=== PATIENT | female | born 1955 | race Caucasian/White ===

== ENCOUNTER 2020-03-15 16:56 | Outpatient (CLI) | payer MEDICARE, SELFPAY ==
[2020-03-15 17:34] LABS: Basophils Absolute Auto 0.1 K/mm3 (0.0-0.1); Basophils Percent Auto 0.9 % (0.2-1.2); Eosinophils Absolute Auto 0.2 K/mm3 (0-0.3); Eosinophils Percent Auto 3.3 % (0-4.4); Hematocrit 33.2 % (37.0-47.0); Hemoglobin 11.2 g/dL (12.0-15.0); Immature Granulocyte Absolute 0.01 K/mm3 (0.00-0.031); Immature Granulocyte Percent A 0.2 % (0-0.5); Lymphocytes Absolute Auto 1.13 K/mm3 (0.9-3.2); Lymphocytes Percent Auto 20.8 % (18.3-44.2); Mean Corpuscular HGB Conc 33.7 g/dl (32-36); Mean Corpuscular Hemoglobin 30.8 pg (26-34); Mean Corpuscular Volume 91.2 fl (80-100); Mean Platelet Volume 10.2 fl (7.4-10.4); Monocytes Absolute Auto 0.5 K/mm3 (0.1-0.6); Monocytes Percent Auto 9.6 % (2.6-8.5); Neutrophils Absolute Auto 3.5 K/mm3 (1.3-6.7); Neutrophils Percent Auto 65.2 % (45.5-73.1); Platelet Count Result 409 k/mm3 (150-375); Red Blood Count 3.64 M/mm3 (4.2-5.4); Red Cell Distribution Width 12.8 % (11.5-14.5); White Blood Count 5.4 K/mm3 (4.5-10.0)
[2020-03-15 17:35] LABS: Alanine Aminotransferase 10 U/L (4-35); Albumin Level 4.1 g/dL (3.5-5.1); Alkaline Phosphatase 122 U/L (38-126); Anion Gap 14.1 mmol/L (7-16); Aspartate Amino Transferase 19 U/L (14-36); Bilirubin,Total 0.3 mg/dL (0.2-1.3); Blood Urea Nitrogen 16 mg/dL (7-17); Calcium 8.4 mg/dL (8.4-10.2); Carbon Dioxide 26 mmol/L (22-30); Chloride 92 mmol/L (98-107); Cholesterol 127 mg/dL (0-200); Estimated Glomerular Filt Rate 56; Glucose 95 mg/dL (65-105); HDL Direct 63 mg/dL; Hemoglobin A1C 5.6 % (<5.7); Potassium 4.1 mmol/L (3.4-5.0); Sodium 128 mmol/L (137-145); Triglycerides 77 mg/dL (<150)
[2020-03-15 17:46] LABS: LDL Cholesterol Direct 50 mg/dL
[2020-03-15 19:20] LABS: Free T4 Free Thyroxine 1.11 ng/mL (0.78-2.19)
== END 2020-03-15 16:57 | disposition home or self-care (01) ==
PROVIDERS: PCP Physician Assistant; Visit Provider Physician Assistant
DX: R73.03 Prediabetes (principal); E78.5 Hyperlipidemia, unspecified; E03.9 Hypothyroidism, unspecified; Z79.899 Other long term (current) drug therapy
CPT/HCPCS: 36415; 80048; 80061; 80076; 83036; 84439; 84443; 85025

== ENCOUNTER → 2020-04-09 13:48 | Outpatient (CLI) | payer MEDICARE, SELFPAY ==
--- NOTE | ~2020-04-09 | MM_ITS ---
EXAMINATION: MM screening [facility] w valeriano HISTORY: Screening TECHNIQUE: Craniocaudal and mediolateral oblique 3-D tomosynthesis images were obtained and synthetic 2-D images were generated. CAD analysis was submitted and interpreted. COMPARISON: Comparison to multiple prior studies sequentially, with oldest reviewed study dated 06/11. BREAST PARENCHYMAL COMPOSITION: There are scattered areas of fibroglandular density. FINDINGS: There is no evidence of suspicious mass, calcification, or architectural distortion to sugg est malignancy in either breast. There has been no suspicious interval change. IMPRESSION: 1. No mammographic evidence of malignancy. 2. Recommend routine screening mammography in one year. BI-RADS Category 1: Negative Reviewed, dictated and finalized at location A.
== END ==
PROVIDERS: PCP Physician Assistant; Visit Provider Physician Assistant
DX: Z12.31 Encounter for screening mammogram for malignant neoplasm of breast (principal)
CPT/HCPCS: 77063; 77067

== ENCOUNTER 2020-04-25 15:44 | Outpatient (CLI) | payer MEDICARE, SELFPAY ==
--- NOTE | ~2020-04-25 | XR_ITS ---
EXAMINATION: XR cervical spine 4-5V DATE: 04/25/2020 16:41 INDICATION: Cervical radiculopathy. Posterior neck pain. TECHNIQUE: 3 views of cervical spine were obtained. COMPARISON: Cervical spine radiographs 05/27/2016 FINDINGS: Bone alignment is normal. Vertebral body heights are normal. There is moderately decreased disc height at C5-C6 and mildly decreased disc height at C6-C7. There is multilevel facet joint osteo arthritis, severe on the left at C4-C5. There is mild central canal stenosis at C5-C6. No prevertebra l soft tissue swelling. IMPRESSION: 1. Moderate cervical spondylosis, stable from 05/27/2016. Reviewed, dictated and finalized at location A.
--- NOTE | ~2020-04-25 | XR_ITS ---
EXAMINATION: XR lumbar spine 2-3V DATE: 04/25/2020 16:41 INDICATION: Lumbar radiculopathy. TECHNIQUE: 3 views of lumbar spine were obtained. COMPARISON: Lumbar spine radiographs 05/27/2016 FINDINGS: There is 10 degrees levoscoliosis of thoracolumbar spine. There is kyphosis of upper lumbar spine. There is 3 mm retrolisthesis of L2 on L3 and L3 on L4. Vertebral body heights are normal. The re is moderately decreased disc height at L1-L2 and severely decreased disc height from L2-L3 through L4-L5. There is multilevel facet joint osteoarthritis, severe in lower lumbar spine. There are elect rode in left S3 neural foramen. Surgical clips in the right upper quadrant are likely from cholecyste ctomy. IMPRESSION: 1. Severe lumbar spondylosis. 2. Thoracolumbar levoscoliosis. Reviewed, dictated and finalized at location A.
[2020-04-25 16:30] LABS: Anion Gap 9 mmol/L (8-16); Blood Urea Nitrogen 10 mg/dL (7-17); Calcium 8.6 mg/dL (8.4-10.2); Carbon Dioxide 29 mmol/L (22-30); Chloride 89 mmol/L (98-107); Estimated Glomerular Filt Rate > 60; Glucose 87 mg/dL (65-105); Potassium 3.9 mmol/L (3.4-5.0); Sodium 127 mmol/L (137-145)
== END 2020-04-25 15:45 | disposition home or self-care (01) ==
PROVIDERS: PCP Physician Assistant
DX: E87.1 Hypo-osmolality and hyponatremia (principal); M47.22 Other spondylosis with radiculopathy, cervical region; M47.26 Other spondylosis with radiculopathy, lumbar region; G89.4 Chronic pain syndrome; M41.84 Other forms of scoliosis, thoracic region; Z79.891 Long term (current) use of opiate analgesic; Z51.81 Encounter for therapeutic drug level monitoring; Z13.89 Encounter for screening for other disorder
CPT/HCPCS: 36415; 72050; 72100; 80048

== ENCOUNTER 2020-05-29 14:09 | Outpatient (CLI) | payer MEDICARE, SELFPAY ==
--- NOTE | ~2020-05-29 | CT_ITS ---
EXAMINATION: CT chest w con DATE: 05/29/2020 15:02 INDICATION: Hypoosmolality and hyponatremia TECHNIQUE: Transaxial computed tomographic images of the chest were obtained after the administration of 75 cc of Omnipaque 350 intravenous contrast. The dose-length product (DLP) was 141.29 mGy-cm. Ite rative reconstruction was used. COMPARISON: 04/14/2011 FINDINGS: There is mild atelectasis. The lungs are free of focal airspace opacities. There is no pleu ral effusion or pneumothorax. No pathologically enlarged thoracic lymph nodes are identified. The hea rt size is normal. There is a 7 mm cyst of the left hepatic lobe. The gallbladder is surgically absen t. There is mild enlargement of the common bile duct and central intrahepatic ducts which is likely d ue to post cholecystectomy state. There is mild thoracic spondylosis. IMPRESSION: 1. No CT correlate for the patient's symptoms. Reviewed, dictated and finalized at location A.
[2020-05-29 14:57] LABS: Estimated Glomerular Filt Rate 45
== END 2020-05-29 14:10 | disposition home or self-care (01) ==
PROVIDERS: PCP Physician Assistant; Visit Provider Physician Assistant
DX: E87.1 Hypo-osmolality and hyponatremia (principal)
CPT/HCPCS: 71260; Q9967

== ENCOUNTER 2021-03-22 15:02 | Outpatient (CLI) | payer MEDICARE, SELFPAY ==
[2021-03-22 16:01] LABS: Basophils Absolute Auto 0.1 K/mm3 (0.0-0.1); Basophils Percent Auto 1.3 % (0.2-1.2); Eosinophils Absolute Auto 0.2 K/mm3 (0-0.3); Eosinophils Percent Auto 3.4 % (0-4.4); Hematocrit 32.8 % (37.0-47.0); Hemoglobin 10.9 g/dL (12.0-15.0); Immature Granulocyte Absolute 0.01 K/mm3 (0.00-0.031); Immature Granulocyte Percent A 0.2 % (0-0.5); Lymphocytes Absolute Auto 0.91 K/mm3 (0.9-3.2); Lymphocytes Percent Auto 14.2 % (18.3-44.2); Mean Corpuscular HGB Conc 33.2 g/dl (32-36); Mean Corpuscular Hemoglobin 29.5 pg (26-34); Mean Corpuscular Volume 88.9 fl (80-100); Mean Platelet Volume 10.2 fl (7.4-10.4); Monocytes Absolute Auto 0.5 K/mm3 (0.1-0.6); Monocytes Percent Auto 7.7 % (2.6-8.5); Neutrophils Absolute Auto 4.7 K/mm3 (1.3-6.7); Neutrophils Percent Auto 73.2 % (45.5-73.1); Platelet Count Result 345 k/mm3 (150-375); Red Blood Count 3.69 M/mm3 (4.2-5.4); Red Cell Distribution Width 13.7 % (11.5-14.5); White Blood Count 6.4 K/mm3 (4.5-10.0)
[2021-03-22 16:10] LABS: Alanine Aminotransferase 9 U/L (4-35); Albumin Level 4.2 g/dL (3.5-5.1); Alkaline Phosphatase 87 U/L (38-126); Anion Gap 9 mmol/L (8-16); Aspartate Amino Transferase 20 U/L (14-36); Bilirubin,Total 0.5 mg/dL (0.2-1.3); Blood Urea Nitrogen 18 mg/dL (7-17); Calcium 9.3 mg/dL (8.4-10.2); Carbon Dioxide 27 mmol/L (22-30); Chloride 91 mmol/L (98-107); Cholesterol 130 mg/dL (0-200); Estimated Glomerular Filt Rate > 60; Glucose 97 mg/dL (65-110); HDL Direct 60 mg/dL; Potassium 4.1 mmol/L (3.4-5.0); Sodium 127 mmol/L (137-145); Triglycerides 90 mg/dL (<150)
[2021-03-22 16:33] LABS: LDL Cholesterol Direct 42 mg/dL
[2021-03-22 16:45] LABS: Free T4 Free Thyroxine 1.16 ng/mL (0.78-2.19)
[2021-03-22 17:59] LABS: Hemoglobin A1C 5.8 % (<5.7)
== END 2021-03-22 15:03 | disposition home or self-care (01) ==
LOC: ANHLAB 15:09
PROVIDERS: PCP Physician Assistant; Visit Provider Physician Assistant
DX: E78.5 Hyperlipidemia, unspecified (principal); E03.9 Hypothyroidism, unspecified; R73.03 Prediabetes; Z51.81 Encounter for therapeutic drug level monitoring; Z79.899 Other long term (current) drug therapy
CPT/HCPCS: 36415; 80048; 80061; 80076; 83036; 84439; 84443; 85025; 87086; 87088

== ENCOUNTER 2021-05-31 16:21 | Outpatient (CLI) | payer MEDICARE, SELFPAY ==
--- NOTE | ~2021-05-31 | XR_ITS ---
EXAMINATION:XR cervical spine 4-5V DATE: 05/31/2021 17:08 INDICATION: Neck pain TECHNIQUE: AP, lateral, lateral swimmers and odontoid views of the cervical spine are provided. COMPARISON: 04/25/2020 FINDINGS: Alignment is normal. The odontoid is intact. No fracture is identified. There is unchanged moderate loss of intervertebral disc space height at C5-6 and mild loss of intervertebral disc space height at C6-7. Small degenerative osteophytes project from the anterior endplates of multiple verteb ral bodies. There is multilevel facet and uncovertebral joint osteoarthritis, severe in the lower cer vical spine. Prevertebral soft tissues are normal. IMPRESSION: 1. Moderate cervical spondylosis without acute findings or significant interval change. Reviewed, dictated and finalized at location A.
--- NOTE | ~2021-05-31 | XR_ITS ---
EXAMINATION: XR lumbar spine 2-3V DATE: 05/31/2021 17:08 INDICATION: Low back pain TECHNIQUE: Anteroposterior and lateral views of the lumbar spine, and cone-down lateral view of the l umbosacral junction were obtained. COMPARISON: 04/25/2020 FINDINGS: There are 10 degrees of unchanged thoracolumbar levoscoliosis. Kyphosis of the upper lumbar spine is again noted. There are 3 mm of stable retrolisthesis of L2 on L3 and L3 on L4. The vertebra l body heights are maintained. There is severe loss of intervertebral disc space height at L2-3, L3-4 , and L4-5. Moderate loss of intervertebral disc space height is present at L1-2. There is no fractur e. There is severe facet osteoarthritis of the lower lumbar spine. A neurostimulator device is implan zenaida in the posterior subcutaneous tissues of the left buttock with lead entering the pelvis through t he left S3 neural foramen. A large volume of colonic stool is present. IMPRESSION: 1. Severe lumbar spondylosis without acute findings or significant interval change. Reviewed, dictated and finalized at location A. IMPRESSION: 1. Severe lumbar spondylosis without acute findings or significant interval chilango nge.
== END 2021-05-31 16:22 | disposition home or self-care (01) ==
LOC: ANHIMG 16:25
PROVIDERS: PCP Physician Assistant; Visit Provider Pain Medicine Interventional Pain Medicine
DX: G89.4 Chronic pain syndrome (principal); M47.812 Spondylosis without myelopathy or radiculopathy, cervical region; M48.02 Spinal stenosis, cervical region; M47.816 Spondylosis without myelopathy or radiculopathy, lumbar region; M48.061 Spinal stenosis, lumbar region without neurogenic claudication
CPT/HCPCS: 72050; 72100

== ENCOUNTER → 2021-06-06 15:14 | Outpatient (CLI) | payer MEDICARE, SELFPAY ==
--- NOTE | ~2021-06-06 | MM_ITS ---
EXAMINATION: MM screening [facility] w valeriano HISTORY: Screening mammogram TECHNIQUE: Craniocaudal and mediolateral oblique 3-D tomosynthesis images were obtained and synthetic 2-D images were generated. CAD analysis was submitted and interpreted. COMPARISON: 04/09/2020, 12/26/2015 bilateral screening mammogram examinations BREAST PARENCHYMAL COMPOSITION: There are scattered areas of fibroglandular density... FINDINGS: Stable mild fibroglandular asymmetry. There is no evidence of suspicious mass, calcificatio n, or architectural distortion to suggest malignancy in either breast. There has been no suspicious i nterval change. IMPRESSION: 1. No mammographic evidence of malignancy. 2. Recommend routine screening mammography in one year. BI-RADS Category 2: Benign finding(s). Reviewed, dictated and finalized at location A.
== END ==
PROVIDERS: PCP Physician Assistant; Visit Provider Physician Assistant
DX: Z12.31 Encounter for screening mammogram for malignant neoplasm of breast (principal)
CPT/HCPCS: 77063; 77067

== ENCOUNTER 2021-10-11 16:07 | Outpatient (CLI) | payer MEDICARE, SELFPAY ==
[2021-10-11 17:24] LABS: Basophils Absolute Auto 0.1 K/mm3 (0.0-0.1); Basophils Percent Auto 0.9 % (0.2-1.2); Eosinophils Absolute Auto 0.2 K/mm3 (0-0.3); Eosinophils Percent Auto 2.4 % (0-4.4); Hematocrit 34.9 % (37.0-47.0); Hemoglobin 11.4 g/dL (12.0-15.0); Immature Granulocyte Absolute 0.02 K/mm3 (0.00-0.031); Immature Granulocyte Percent A 0.3 % (0-0.5); Lymphocytes Absolute Auto 1.65 K/mm3 (0.9-3.2); Lymphocytes Percent Auto 20.8 % (18.3-44.2); Mean Corpuscular HGB Conc 32.7 g/dl (32-36); Mean Corpuscular Hemoglobin 30.9 pg (26-34); Mean Corpuscular Volume 94.6 fl (80-100); Mean Platelet Volume 10.5 fl (7.4-10.4); Monocytes Absolute Auto 0.5 K/mm3 (0.1-0.6); Monocytes Percent Auto 6.6 % (2.6-8.5); Neutrophils Absolute Auto 5.5 K/mm3 (1.3-6.7); Platelet Count Result 358 k/mm3 (150-375); Red Blood Count 3.69 M/mm3 (4.2-5.4); Red Cell Distribution Width 13.1 % (11.5-14.5); White Blood Count 7.9 K/mm3 (4.5-10.0)
[2021-10-11 17:36] LABS: Anion Gap 9 mmol/L (8-16); Blood Urea Nitrogen 27 mg/dL (7-17); Carbon Dioxide 29 mmol/L (22-30); Chloride 93 mmol/L (98-107); Estimated Glomerular Filt Rate 50; Glucose 89 mg/dL (65-110); Potassium 3.9 mmol/L (3.4-5.0); Sodium 131 mmol/L (137-145)
[2021-10-11 18:09] LABS: Iron 47 ug/dL (37-170)
[2021-10-11 18:18] LABS: Percent Iron Saturation 13 % (20-50)
== END 2021-10-11 16:08 | disposition home or self-care (01) ==
LOC: ANHLAB 16:21
PROVIDERS: PCP Physician Assistant; Visit Provider Physician Assistant
DX: E87.1 Hypo-osmolality and hyponatremia (principal); L60.8 Other nail disorders; Z79.899 Other long term (current) drug therapy; R73.03 Prediabetes; E78.5 Hyperlipidemia, unspecified; E03.9 Hypothyroidism, unspecified
CPT/HCPCS: 36415; 80048; 82607; 83540; 83550; 85025

== ENCOUNTER 2021-12-18 14:52 | Outpatient (CLI) | payer MEDICARE, SELFPAY ==
[2021-12-18 15:30] LABS: Alanine Aminotransferase 10 U/L (6-35); Alkaline Phosphatase 76 U/L (38-126); Anion Gap 7 mmol/L (8-16); Aspartate Amino Transferase 20 U/L (14-36); Bilirubin,Total 0.4 mg/dL (0.2-1.3); Blood Urea Nitrogen 16 mg/dL (7-17); Calcium 8.9 mg/dL (8.4-10.2); Carbon Dioxide 28 mmol/L (22-30); Chloride 94 mmol/L (98-107); Cholesterol 116 mg/dL (0-200); Estimated Glomerular Filt Rate 55; Glucose 104 mg/dL (65-110); HDL Direct 58 mg/dL; Potassium 3.9 mmol/L (3.4-5.0); Sodium 129 mmol/L (137-145); Triglycerides 73 mg/dL (<150)
[2021-12-18 15:41] LABS: LDL Cholesterol Direct 40 mg/dL
[2021-12-18 16:35] LABS: Free T4 Free Thyroxine 1.37 ng/mL (0.78-2.19)
== END 2021-12-18 14:53 | disposition home or self-care (01) ==
PROVIDERS: PCP Physician Assistant; Referring Provider Psychiatry & Neurology Psychiatry; Visit Provider Physician Assistant
DX: E87.1 Hypo-osmolality and hyponatremia (principal); R73.03 Prediabetes; E03.9 Hypothyroidism, unspecified; E78.5 Hyperlipidemia, unspecified; Z79.899 Other long term (current) drug therapy
CPT/HCPCS: 36415; 80048; 80061; 80076; 84439; 84443

== ENCOUNTER 2022-05-17 16:25 | Emergency (ER) | payer MEDICARE, SELFPAY ==
[2022-05-17 16:34] VITALS: BP 129/75; PULSE 73; RESP 16; TEMP 36.4; O2SAT 98
[2022-05-17 16:36] VITALS: BP 129/75; PULSE 73; RESP 16; TEMP 36.4; O2SAT 98
--- NOTE | 2022-05-17 16:47 | ED.DENTAL ---
HPI - Dental/Oral General Chief complaint: Upper Respiratory Infection Stated complaint: left side facial swelling Time Seen by Provider: 05/17/22 16:47 Source: patient and RN notes reviewed Mode of arrival: ambulatory Limitations: no limitations History of Present Illness HPI Narrative: 66 y/o female presented for c/o left facial swelling since yesterday. Pain from left lower eye to left ear and jaw. Also endorses runny nose, headache, and cough. Patient states she thinks it is sinuses. Denies shortness of breath, wheezing, n/v/d/f/c. Patient reports poor dentition but denies gum pain/swelling. Related Data Home Medications Medication Instructions Recorded Confirmed bupropion HCl 200 mg tablet,12 hr 200 mg PO DAILY 03/22/21 05/17/22 sustained-release buspirone 15 mg tablet 15 mg PO TID 03/22/21 05/17/22 cyclobenzaprine 10 mg tablet 10 mg PO TID 03/22/21 05/17/22 duloxetine 60 mg capsule,delayed 60 mg PO DAILY 03/22/21 05/17/22 release hydrocodone 10 mg-acetaminophen 1 tablet PO Q8H 03/22/21 05/17/22 325 mg tablet levothyroxine 75 mcg tablet 75 mcg PO DAILY 03/22/21 05/17/22 losartan 100 0.5 tablet PO DAILY 03/22/21 05/17/22 mg-hydrochlorothiazide 25 mg tablet meloxicam 15 mg tablet 30 mg PO DAILY 03/22/21 05/17/22 metformin 500 mg tablet 500 mg PO BID 03/22/21 05/17/22 metoprolol succinate 50 mg 25 mg PO DAILY 03/22/21 05/17/22 tablet,extended release 24 hr ondansetron HCl 8 mg tablet 8 mg PO Q8-12H PRN Nausea 03/22/21 05/17/22 pantoprazole 40 mg tablet,delayed 40 mg PO BID 03/22/21 05/17/22 release quetiapine 100 mg tablet 100 mg PO HS 03/22/21 05/17/22 rosuvastatin 10 mg tablet 10 mg PO DAILY 03/22/21 05/17/22 trazodone 50 mg tablet 200 mg PO HS 03/22/21 05/17/22 cariprazine 4.5 mg capsule 4.5 mg PO DAILY 01/22/22 05/17/22 (Vraylar) Allergies Allergy/AdvReac Type Severity Reaction Status Date / Time adhesive Allergy Severe Blister Verified 05/17/22 16:31 bacitracin Allergy Severe Blister Verified 05/17/22 16:31 lisinopril Allergy Severe FACIAL Verified 05/17/22 16:31 SWELLING milk Allergy Severe Diarrhea Verified 05/17/22 16:31 neomycin Allergy Severe Blister Verified 05/17/22 16:31 polymyxin B Allergy Severe Back Pain Verified 05/17/22 16:31 gramicidin D Allergy Mild Unknown Verified 05/17/22 16:31 doxycycline Allergy Unknown Unknown Verified 05/17/22 16:57 adhesive tape AdvReac Intermediate RASH Verified 05/17/22 16:31 Review of Systems Review of Systems: CONSTITUTIONAL: Denies malaise, chills, sweats, fever EYES: Denies visual changes, redness, or discharge ENT: Reports rhinorrhea, congestion, sinus pain, otalgia CARDIOVASCULAR: Denies chest pain, palpitations, edema RESPIRATORY: Reports cough, post nasal drainage. Denies dyspnea GASTROINTESTINAL: Denies abdominal pain, nausea, vomiting, diarrhea SKIN: Denies rash or wounds MUSCULOSKELETAL: Denies myalgia PMFSH Past Medical History Medical History Anxiety Depression High cholesterol Hx of fpc use of blood thinners Hypertension Migraines Pneumonia Screening mammogram, encounter for Stomach ulcer Surgical History Surgical History History of bladder surgery 1998 interstim implant 1999 reposition of interstim implant History of dilation and curettage 05/09/85 dysfunctional uterine bleeding X3 History of hysterectomy (~1994) hysterectomy w/BSO and suspension History of orthopedic surgery 2012 lt leg injury History of parathyroidectomy 2010 benign tumor History of plastic surgery 2006 lt leg Family History Family History Mother Family history of migraine headaches Hypertension Family history of malignant neoplasm of kidney Family history of heart disease in male family member before age 55 Osteoporosis Grandparent Cerebrovascular acciden
== END 2022-05-17 17:08 | disposition home or self-care (01) ==
PROVIDERS: Emergency Provider Nurse Practitioner Family; PCP Physician Assistant
DX: R22.0 Localized swelling, mass and lump, head (principal); Z87.891 Personal history of nicotine dependence; E78.00 Pure hypercholesterolemia, unspecified; I10 Essential (primary) hypertension; F41.9 Anxiety disorder, unspecified; F32.A Depression, unspecified; Z90.89 Acquired absence of other organs
CPT/HCPCS: 99213; G0463

== ENCOUNTER 2022-08-10 15:55 | Emergency (ER) | payer MEDICARE, SELFPAY ==
[2022-08-10 16:28] VITALS: BP 135/77; PULSE 80; RESP 16; TEMP 36.6; O2SAT 96
--- NOTE | 2022-08-10 16:39 | ED.URI ---
HPI - URI/Sore Throat General Chief Complaint: Upper Respiratory Infection Stated Complaint: Sore Throat/Headache/Cough Time Seen by Provider: 08/10/22 16:39 Source: patient, RN notes reviewed and old records reviewed Mode of arrival: ambulatory Limitations: no limitations History of Present Illness HPI Narrative: 66-year-old female presents to the [facility] with complaints of sore throat, headache and cough for 2 days. Denies fevers. Denies chest pain or pain. Related Data Home Medications Medication Instructions Recorded Confirmed bupropion HCl 200 mg tablet,12 hr 200 mg PO DAILY 03/22/21 08/10/22 sustained-release buspirone 15 mg tablet 15 mg PO TID 03/22/21 08/10/22 cyclobenzaprine 10 mg tablet 10 mg PO TID 03/22/21 08/10/22 duloxetine 60 mg capsule,delayed 60 mg PO DAILY 03/22/21 08/10/22 release hydrocodone 10 mg-acetaminophen 1 tablet PO Q8H 03/22/21 08/10/22 325 mg tablet levothyroxine 75 mcg tablet 75 mcg PO DAILY 03/22/21 08/10/22 losartan 100 0.5 tablet PO DAILY 03/22/21 08/10/22 mg-hydrochlorothiazide 25 mg tablet meloxicam 15 mg tablet 30 mg PO DAILY 03/22/21 08/10/22 metformin 500 mg tablet 500 mg PO BID 03/22/21 08/10/22 metoprolol succinate 50 mg 25 mg PO DAILY 03/22/21 08/10/22 tablet,extended release 24 hr ondansetron HCl 8 mg tablet 8 mg PO Q8-12H PRN Nausea 03/22/21 08/10/22 pantoprazole 40 mg tablet,delayed 40 mg PO BID 03/22/21 08/10/22 release quetiapine 100 mg tablet 100 mg PO HS 03/22/21 08/10/22 rosuvastatin 10 mg tablet 10 mg PO DAILY 03/22/21 08/10/22 trazodone 50 mg tablet 200 mg PO HS 03/22/21 08/10/22 cariprazine 4.5 mg capsule 4.5 mg PO DAILY 01/22/22 08/10/22 (Chris) Allergies Allergy/AdvReac Type Severity Reaction Status Date / Time adhesive Allergy Severe Blister Verified 08/10/22 16:37 bacitracin Allergy Severe Blister Verified 08/10/22 16:37 lisinopril Allergy Severe FACIAL Verified 08/10/22 16:37 SWELLING milk Allergy Severe Diarrhea Verified 08/10/22 16:37 neomycin Allergy Severe Blister Verified 08/10/22 16:37 polymyxin B Allergy Severe Back Pain Verified 08/10/22 16:37 gramicidin D Allergy Mild Unknown Verified 08/10/22 16:37 doxycycline Allergy Unknown Unknown Verified 08/10/22 16:37 adhesive tape AdvReac Intermediate RASH Verified 08/10/22 16:37 Review of Systems Review of Systems: All systems reviewed & are unremarkable except as noted in HPI and below Constitutional: Constitutional: Reports as per HPI Eyes: Eyes: Reports no additional eye complaints ENT: Reports as per HPI and Reports sore throat Cardiovascular: Cardiovascular: Reports no additional cardiovascular complaints, Denies chest pain and Denies dyspnea Respiratory: Respiratory: Reports as per HPI, Denies chest congestion, Reports cough and Denies dyspnea Gastrointestinal: Gastrointestinal: Reports no additional gastrointestinal complaints, Denies abdominal pain, Denies nausea and Denies vomiting Musculoskeletal: Musculoskeletal: Reports no additional musculoskeletal complaints Integumentary/Breasts: Skin/Breast: Reports system reviewed and no additional complaints, except as docu Neurologic: Reports system reviewed and no additional complaints, except as documented Psychiatric: Psychiatric: Reports no additional psychiatric complaints Allergic/Immunologic: Allergic/Immunologic: Reports no additional allergic/immunologic complaints PMF Past Medical History Medical History Anxiety Depression High cholesterol Hx of penitentiary use of blood thinners Hypertension Migraines Pneumonia Screening mammogram, encounter for Stomach ulcer Surgical History Surgical History History of bladder surgery 1998 interstim implant 1999 reposition of interstim implant History of dilation and curettage 05/09/85 dysfunctional uterine bleeding X3 History of hysterectomy (~1994)
== END 2022-08-10 17:05 | disposition home or self-care (01) ==
PROVIDERS: Emergency Provider Nurse Practitioner; PCP Physician Assistant
DX: J40 Bronchitis, not specified as acute or chronic (principal); Z87.891 Personal history of nicotine dependence; F12.90 Cannabis use, unspecified, uncomplicated; E78.00 Pure hypercholesterolemia, unspecified; I10 Essential (primary) hypertension; F41.9 Anxiety disorder, unspecified; F32.A Depression, unspecified
CPT/HCPCS: 99213; G0463

== ENCOUNTER 2022-10-29 07:35 | Outpatient (CLI) | payer MEDICARE, SELFPAY ==
--- NOTE | ~2022-10-29 | XR_ITS ---
Thoracic spine: Clinical Indication: Radiculopathy AP and lateral views were performed. No fracture is seen. There is normal alignment of the vertebrae. The intervertebral disc spaces appe ar normal. Paravertebral soft tissues appear normal. Impression: No significant abnormalities noted. Reviewed, dictated and finalized at [facility]. Impression: No significant abnormalities noted.
--- NOTE | ~2022-10-29 | XR_ITS ---
Lumbosacral Spine: AP and lateral views Clinical History: Radiculopathy Findings: The normal lordotic curve is maintained. Possible minimal anterior wedging deformity of L2. . There is severe degenerative disc narrowing at L2-L3. There is moderate degenerative disc narrowing at the remaining lumbar levels. There is facet arthropathy at L4-L5 and L5-S1. Stimulator device pre sent. The sacroiliac joints are normally outlined. Impression: Possible minimal anterior wedging deformity of L2. Moderate to advanced degenerative spondylosis, as noted above. Reviewed, dictated and finalized at location M. Impression: Possible minimal anterior wedging deformity of L2. Moderate to advanced degenerative spondylosis, as noted above.
--- NOTE | ~2022-10-29 | XR_ITS ---
Cervical Spine: AP, lateral, open-mouth views Clinical History: Pain Findings: The normal lordotic curve is maintained. The vertebral bodies and posterior elements appea r intact. There is moderate to advanced degenerative disc narrowing at C5-C6 and C6-C7. Remaining dis c spaces are preserved. There is facet arthropathy, worse on the left side, most notably at C3-C4, C4 -C5, and C5-C6. Pre-vertebral soft tissues are unremarkable. Impression: Degenerative spondylosis, mild to moderate overall, as detailed above. Reviewed, dictated and finalized at location M. Impression: Degenerative spondylosis, mild to moderate overall, as detailed above.
[2022-10-29 09:16] LABS: Appearance Urine Clear (Clear); Bilirubin Urine Negative (Negative); Blood Urine Negative (Negative); Color Urine Yellow (Yellow); Glucose Urine UA Negative (Negative); Ketones Urine Negative (Negative); Leukocyte Esterase Ur Negative LEU/UL (NEGATIVE); Nitrate Urine Negative (Negative); Protein Urine Negative (Negative); Specific Grav Ur 1.006 (1.001-1.035); Urobilinogen Urine 0.2 mg/dL (<2.0); pH Urine 7.5 (5.0-9.0)
[2022-10-29 09:25] LABS: Basophils Absolute Auto 0.1 K/mm3 (0.0-0.1); Basophils Percent Auto 0.8 % (0.2-1.2); Eosinophils Absolute Auto 0.2 K/mm3 (0-0.3); Eosinophils Percent Auto 2.6 % (0-4.4); Hematocrit 32.1 % (37.0-47.0); Hemoglobin 10.5 g/dL (12.0-15.0); Immature Granulocyte Absolute 0.02 K/mm3 (0.00-0.031); Immature Granulocyte Percent A 0.3 % (0-0.5); Lymphocytes Absolute Auto 1.15 K/mm3 (0.9-3.2); Lymphocytes Percent Auto 18.9 % (18.3-44.2); Mean Corpuscular HGB Conc 32.7 g/dl (32-36); Mean Corpuscular Volume 88.7 fl (80-100); Mean Platelet Volume 9.9 fl (7.4-10.4); Monocytes Absolute Auto 0.6 K/mm3 (0.1-0.6); Monocytes Percent Auto 9.5 % (2.6-8.5); Neutrophils Absolute Auto 4.1 K/mm3 (1.3-6.7); Neutrophils Percent Auto 67.9 % (45.5-73.1); Platelet Count Result 328 k/mm3 (150-375); Red Blood Count 3.62 M/mm3 (4.2-5.4); Red Cell Distribution Width 14.6 % (11.5-14.5); White Blood Count 6.1 K/mm3 (4.5-10.0)
[2022-10-29 09:27] LABS: Add Urine Microscopic? NO
[2022-10-29 09:35] LABS: Alanine Aminotransferase 18 U/L (6-35); Albumin Level 4.3 g/dL (3.5-5.1); Alkaline Phosphatase 89 U/L (38-126); Anion Gap 5 mmol/L (8-16); Aspartate Amino Transferase 21 U/L (14-36); Bilirubin,Total 0.5 mg/dL (0.2-1.3); Blood Urea Nitrogen 19 mg/dL (7-17); Calcium 9.1 mg/dL (8.4-10.2); Carbon Dioxide 32 mmol/L (22-30); Chloride 96 mmol/L (98-107); Cholesterol 120 mg/dL (0-200); Estimated Glomerular Filt Rate 55; Glucose 86 mg/dL (65-110); HDL Direct 57 mg/dL; Potassium 4.3 mmol/L (3.4-5.0); Sodium 133 mmol/L (137-145); Triglycerides 132 mg/dL (<150)
[2022-10-29 09:57] LABS: LDL Cholesterol Direct 43 mg/dL
[2022-10-29 10:15] LABS: Iron 50 ug/dL (37-170)
[2022-10-29 10:24] LABS: Percent Iron Saturation 11 % (20-50)
[2022-10-29 10:28] LABS: Hemoglobin A1C 5.9 % (<5.7)
[2022-10-29 10:31] LABS: Free T4 Free Thyroxine 1.27 ng/mL (0.78-2.19)
[2022-10-29 10:50] LABS: Ferritin 8.02 ng/mL (11.1-264)
== END 2022-10-29 07:36 | disposition home or self-care (01) ==
PROVIDERS: PCP Physician Assistant; Referring Provider Physician Assistant; Visit Provider Pain Medicine Interventional Pain Medicine
DX: E03.9 Hypothyroidism, unspecified (principal); R73.03 Prediabetes; E78.5 Hyperlipidemia, unspecified; D64.9 Anemia, unspecified; Z79.899 Other long term (current) drug therapy; E87.1 Hypo-osmolality and hyponatremia; M47.896 Other spondylosis, lumbar region; M47.892 Other spondylosis, cervical region
CPT/HCPCS: 36415; 72050; 72072; 72100; 80048; 80061; 80076; 81003; 82728; 83036; 83540; 83550; 84439; 84443; 85025

== ENCOUNTER → 2023-04-07 14:04 | Outpatient (CLI) | payer MEDICARE, SELFPAY ==
--- NOTE | ~2023-04-07 | MM_ITS ---
EXAMINATION: MM screening [facility] w [facility]er[facility] HISTORY: Screening mammogram TECHNIQUE: Craniocaudal and mediolateral oblique 3-D tomosynthesis images were obtained and synthetic 2-D images were generated. CAD analysis was submitted and interpreted. COMPARISON: 06/06/2021, 04/09/2020, 12/26/2015 BREAST PARENCHYMAL COMPOSITION: The breasts are almost entirely fatty. FINDINGS: No suspicious mass, calcification, or architectural distortion are identified in either mattie ast to suggest malignancy. There has been no suspicious interval change. IMPRESSION: 1. No mammographic evidence of malignancy. 2. Recommend routine screening mammography in one year. BI-RADS Category 1: Negative Reviewed, dictated and finalized at location A.
== END ==
PROVIDERS: PCP Physician Assistant; Visit Provider Obstetrics & Gynecology
DX: Z12.31 Encounter for screening mammogram for malignant neoplasm of breast (principal)
CPT/HCPCS: 77063; 77067

== ENCOUNTER 2023-05-28 14:59 | Outpatient (CLI) | payer MEDICARE, SELFPAY ==
[2023-05-28 16:36] LABS: Basophils Absolute Auto 0.1 K/mm3 (0.0-0.1); Basophils Percent Auto 0.8 % (0.2-1.2); Eosinophils Absolute Auto 0.1 K/mm3 (0-0.3); Hematocrit 32.7 % (37.0-47.0); Hemoglobin 10.2 g/dL (12.0-15.0); Immature Granulocyte Absolute 0.02 K/mm3 (0.00-0.031); Immature Granulocyte Percent A 0.2 % (0-0.5); Lymphocytes Absolute Auto 0.98 K/mm3 (0.9-3.2); Lymphocytes Percent Auto 11.8 % (18.3-44.2); Mean Corpuscular HGB Conc 31.2 g/dl (32-36); Mean Corpuscular Hemoglobin 27.9 pg (26-34); Mean Corpuscular Volume 89.6 fl (80-100); Mean Platelet Volume 10.5 fl (7.4-10.4); Monocytes Absolute Auto 0.5 K/mm3 (0.1-0.6); Neutrophils Absolute Auto 6.7 K/mm3 (1.3-6.7); Neutrophils Percent Auto 80.2 % (45.5-73.1); Platelet Count Result 397 k/mm3 (150-375); Red Blood Count 3.65 M/mm3 (4.2-5.4); White Blood Count 8.3 K/mm3 (4.5-10.0)
[2023-05-28 17:39] LABS: Alanine Aminotransferase 15 U/L (6-35); Albumin Level 4.1 g/dL (3.5-5.1); Alkaline Phosphatase 90 U/L (38-126); Anion Gap 6 mmol/L (8-16); Aspartate Amino Transferase 29 U/L (14-36); Bilirubin,Total 0.4 mg/dL (0.2-1.3); Blood Urea Nitrogen 23 mg/dL (7-17); Calcium 8.5 mg/dL (8.4-10.2); Carbon Dioxide 31 mmol/L (22-30); Chloride 96 mmol/L (98-107); Cholesterol 124 mg/dL (0-200); Estimated Glomerular Filt Rate 50; Glucose 120 mg/dL (65-110); HDL Direct 62 mg/dL; Potassium 3.9 mmol/L (3.4-5.0); Sodium 133 mmol/L (137-145); Triglycerides 121 mg/dL (<150)
[2023-05-28 17:44] LABS: Iron 62 ug/dL (37-170)
[2023-05-28 17:49] LABS: LDL Cholesterol Direct 52 mg/dL
[2023-05-28 17:55] LABS: Percent Iron Saturation 15 % (20-50)
[2023-05-28 18:03] LABS: Free T4 Free Thyroxine 1.41 ng/mL (0.78-2.19)
[2023-05-28 18:09] LABS: Thyroid Stimulating Hormone 0.881 uIU/mL (0.465-4.680)
[2023-05-28 18:20] LABS: Ferritin 6.83 ng/mL (11.1-264)
[2023-05-29 06:07] LABS: Hemoglobin A1C 5.9 % (<5.7)
== END 2023-05-28 15:00 | disposition home or self-care (01) ==
PROVIDERS: PCP Physician Assistant; Visit Provider Physician Assistant
DX: R73.03 Prediabetes (principal); E03.9 Hypothyroidism, unspecified; E78.5 Hyperlipidemia, unspecified; D50.9 Iron deficiency anemia, unspecified; Z79.899 Other long term (current) drug therapy
CPT/HCPCS: 36415; 80048; 80061; 80076; 82728; 83036; 83540; 83550; 84439; 84443; 85025

== ENCOUNTER 2024-01-08 13:44 | Outpatient (CLI) | payer MEDICARE, SELFPAY ==
--- NOTE | ~2024-01-08 | XR_ITS ---
EXAM: XR lumbar spine 2-3V DATE: 01/08/2024 14:10 HISTORY: RADICULOPATHY LUMBAR REGION, ANNUAL . COMPARISON: 10/29/2022. FINDINGS: 5 nonrib-bearing lumbar-type vertebral bodies. Moderate lumbar scoliosis. Cholecystectomy clips. Stimulator pack over the left pelvis, lead terminating over the left sacrum. Stable mild anter ior wedge deformity at L1. Multilevel disc space narrowing and marginal osteophytosis, severe at L2-3 and mild at the remaining lumbar levels with the exception of L5-S1 which is grossly normal. Moderat e-severe mid and lower lumbar facet sclerosis and hypertrophy with interspinous narrowing. IMPRESSION: Moderate lumbar scoliosis. Multilevel degenerative disc disease, severe at L2-3. Multilev el moderate-severe mid and lower lumbar facet arthropathy. Reviewed, dictated and finalized at location K. IMPRESSION: Moderate lumbar scoliosis. Multilevel degenerative disc disease, se radha at L2-3. Multilevel moderate-severe mid and lower lumbar facet arthropathy .
--- NOTE | ~2024-01-08 | XR_ITS ---
EXAM: XR_CERV2-3V_CR DATE: 01/08/2024 14:10 HISTORY: RADICULOPATHY CERVICAL REGION, ANNUAL . COMPARISON: 10/29/2022. FINDINGS: Craniocervical association and atlantoaxial joint are aligned. No prevertebral soft tissue swelling. Mild degenerative change at the atlantodental interval. Reversal of the normal cervical lo rdosis centered at C5-6. Disc space narrowing and marginal osteophytosis, severe at C5-6 and moderate at C6-7. Multilevel moderate facet hypertrophy and sclerosis. IMPRESSION: Severe degenerative disc disease at C5-6. Moderate degenerative disc disease at C6-7. Mul tilevel facet arthropathy. Reviewed, dictated and finalized at location K. IMPRESSION: Severe degenerative disc disease at C5-6. Moderate degenerative dis c disease at C6-7. Multilevel facet arthropathy.
== END 2024-01-08 13:45 | disposition home or self-care (01) ==
PROVIDERS: PCP Physician Assistant; Visit Provider Pain Medicine Interventional Pain Medicine
DX: M50.322 Other cervical disc degeneration at C5-C6 level (principal); M50.323 Other cervical disc degeneration at C6-C7 level; M41.86 Other forms of scoliosis, lumbar region; M51.36 Other intervertebral disc degeneration, lumbar region; M47.896 Other spondylosis, lumbar region
CPT/HCPCS: 72040; 72100

== ENCOUNTER 2024-03-04 14:03 | Outpatient (CLI) | payer MEDICARE, SELFPAY ==
[2024-03-04 14:40] LABS: Basophils Absolute Auto 0.1 K/mm3 (0.0-0.1); Basophils Percent Auto 0.8 % (0.2-1.2); Eosinophils Absolute Auto 0.1 K/mm3 (0-0.3); Eosinophils Percent Auto 1.8 % (0-4.4); Hematocrit 30.2 % (37.0-47.0); Hemoglobin 9.7 g/dL (12.0-15.0); Immature Granulocyte Absolute 0.02 K/mm3 (0.00-0.031); Immature Granulocyte Percent A 0.3 % (0-0.5); Lymphocytes Absolute Auto 1.03 K/mm3 (0.9-3.2); Lymphocytes Percent Auto 15.9 % (18.3-44.2); Mean Corpuscular HGB Conc 32.1 g/dl (32-36); Mean Platelet Volume 9.8 fl (7.4-10.4); Monocytes Absolute Auto 0.5 K/mm3 (0.1-0.6); Monocytes Percent Auto 8.2 % (2.6-8.5); Neutrophils Absolute Auto 4.7 K/mm3 (1.3-6.7); Platelet Count Result 391 k/mm3 (150-375); Red Blood Count 3.47 M/mm3 (4.2-5.4); Red Cell Distribution Width 14.6 % (11.5-14.5); White Blood Count 6.5 K/mm3 (4.5-10.0)
[2024-03-04 14:57] LABS: Hemoglobin A1C 6.4 % (<5.7)
[2024-03-04 15:01] LABS: Creatinine Urine 53.8 mg/dL
[2024-03-04 15:14] LABS: MALB Creatinine Ratio 14.9 mg/g (0-30)
[2024-03-04 15:30] LABS: Alanine Aminotransferase 11 U/L (6-35); Albumin Level 3.9 g/dL (3.5-5.1); Alkaline Phosphatase 77 U/L (38-126); Anion Gap 11 mmol/L (4-12); Aspartate Amino Transferase 20 U/L (14-36); Bilirubin,Total 0.3 mg/dL (0.2-1.3); Blood Urea Nitrogen 27 mg/dL (7-17); Calcium 8.8 mg/dL (8.4-10.2); Carbon Dioxide 29 mmol/L (22-30); Chloride 94 mmol/L (98-107); Cholesterol 99 mg/dL (0-200); Estimated Glomerular Filt Rate 45; Glucose 97 mg/dL (65-110); HDL Direct 51 mg/dL; Potassium 3.9 mmol/L (3.4-5.0); Sodium 134 mmol/L (137-145); Triglycerides 66 mg/dL (<150)
[2024-03-04 15:35] LABS: Iron 34 ug/dL (37-170)
[2024-03-04 15:38] LABS: LDL Cholesterol Direct 39 mg/dL
[2024-03-04 15:49] LABS: Free T4 Free Thyroxine 1.49 ng/mL (0.78-2.19)
[2024-03-04 16:06] LABS: Percent Iron Saturation 8 % (20-50)
[2024-03-04 16:35] LABS: Folic Acid 5.4 ng/mL (2.76->20)
== END 2024-03-04 14:04 | disposition home or self-care (01) ==
LOC: ANHLAB 14:08
PROVIDERS: PCP Physician Assistant; Visit Provider Physician Assistant
DX: E78.5 Hyperlipidemia, unspecified (principal); E11.9 Type 2 diabetes mellitus without complications; E03.9 Hypothyroidism, unspecified; D50.9 Iron deficiency anemia, unspecified; Z79.899 Other long term (current) drug therapy
CPT/HCPCS: 36415; 80048; 80061; 80076; 82043; 82607; 82746; 83036; 83540; 83550; 84439; 84443; 85025

== ENCOUNTER 2024-04-06 06:24 | Day surgery (SDC) | payer MEDICARE, SELFPAY ==
[2024-03-24 15:15] VITALS: BMI 26.6
[2024-03-30 14:37] VITALS: BMI 25.4
--- NOTE | 2024-04-05 10:05 | WPDANESEPPF ---
Anes - Initial Pre Proc Eval Procedure: Operation Date: 04/06/24 08:00 Proposed Procedures p Esophagogastroduodenoscopy - Doroteo Stanley MD s Diagnostic Colonoscopy - Doroteo Stanley MD Date/Time: 04/05/24 10:05 Surgeon: Doroteo Stanley MD Pre Op Diagnosis: Iron Deficient Anemia Patient Data Age: 68 Gender: F Height: 1.75 m Weight: 78 kg Allergies Allergy/AdvReac Type Severity Reaction Status Date / Time bacitracin Allergy Severe Blister Verified 04/06/24 06:49 lisinopril Allergy Severe FACIAL Verified 04/06/24 06:49 SWELLING neomycin Allergy Severe Blister Verified 04/06/24 06:49 latex Allergy Intermediate Rash Verified 04/06/24 06:49 gramicidin D Allergy Mild Unknown Verified 04/06/24 06:49 milk AdvReac Severe Diarrhea Verified 04/06/24 06:49 polymyxin B AdvReac Severe Back Pain Verified 04/06/24 06:49 adhesive tape AdvReac Intermediate RASH Verified 04/06/24 06:49 Home Medications Medication Instructions Recorded Confirmed Type bupropion HCl 200 mg tablet,12 hr 200 mg PO DAILY 03/22/21 04/06/24 History sustained-release cyclobenzaprine 10 mg tablet 10 mg PO TID 03/22/21 04/06/24 History duloxetine 60 mg capsule,delayed 60 mg PO DAILY 03/22/21 04/06/24 History release hydrocodone 10 mg-acetaminophen 1 tablet PO Q8H 03/22/21 04/06/24 History 325 mg tablet levothyroxine 75 mcg tablet 75 mcg PO DAILY 03/22/21 04/06/24 History losartan 100 0.5 tablet PO DAILY 03/22/21 04/06/24 History mg-hydrochlorothiazide 25 mg tablet meloxicam 15 mg tablet 30 mg PO DAILY 03/22/21 04/06/24 History metformin 500 mg tablet 500 mg PO BID 03/22/21 04/06/24 History metoprolol succinate 50 mg 25 mg PO DAILY 03/22/21 04/06/24 History tablet,extended release 24 hr ondansetron HCl 8 mg tablet 8 mg PO Q8-12H PRN Nausea 03/22/21 04/06/24 History pantoprazole 40 mg tablet,delayed 40 mg PO BID 03/22/21 04/06/24 History release quetiapine 100 mg tablet 100 mg PO HS 03/22/21 04/06/24 History rosuvastatin 10 mg tablet 10 mg PO DAILY 03/22/21 04/06/24 History trazodone 50 mg tablet 200 mg PO HS 03/22/21 04/06/24 History cariprazine 4.5 mg capsule 4.5 mg PO DAILY 01/22/22 04/06/24 History (Vraylar) albuterol sulfate 90 mcg/actuation 2 puff inhalation QID PRN 08/10/22 04/06/24 Rx aerosol inhaler shortness of breath or wheezing #6.7 grams inhalational spacing device #1 ea 08/10/22 Rx (Aerochamber MV spacer) estradiol 1 mg tablet 1 mg PO DAILY #90 tabs 07/06/23 04/06/24 Rx Patient hx anesthesia problems: none Family hx anesthesia problems: none Results Review: All pre-operative results and documents have been reviewed as part of the pre-operative evaluation. [facility] Past Medical History Medical History (Updated 04/06/24 @ 07:31 by Doroteo Stanley MD) Anxiety Chronic, continuous use of opioids Depression Diabetes type 2, controlled GERD (gastroesophageal reflux disease) High cholesterol Hx of fpc use of blood thinners Hypertension Hypothyroidism Migraines Pneumonia PTSD (post-traumatic stress disorder) Screening mammogram, encounter for Stomach ulcer Surgical History Surgical History History of bladder surgery 1998 interstim implant 1999 reposition of interstim implant History of dilation and curettage 05/09/85 dysfunctional uterine bleeding X3 History of hysterectomy (~1994) hysterectomy w/BSO and suspension History of orthopedic surgery 2011 lt leg injury History of parathyroidectomy 2010 benign tumor History of plastic surgery 2006 lt leg Family History Family History Mother Family history of migraine headaches Hypertension Family history of malignant neoplasm of kidney Family history of heart disease in male family member before age 55 Osteoporosis Grandparent Cerebrovascular accident Sibling Hypertension sister brother S
[2024-04-06 06:44] VITALS: BMI 27.3
[2024-04-06 07:06] VITALS: BP 151/81; PULSE 70; RESP 18; TEMP 36.3; O2SAT 96
[2024-04-06] MEDS: LACTATED RINGERS 1,000 ML 150 ML IV CONT (07:21)
[2024-04-06 07:23] LABS: Glucose Point of Care 90 mg/dl (65-105)
--- NOTE | 2024-04-06 07:30 | PM.HPGS ---
History of Present Illness History of Present Illness Consent: Risks, benefits, and alternatives have been discussed and questions answered. Patient agrees to proceed with procedure. Chief complaint: Iron Deficient Anemia Narrative: Blanca Laura is a 68 year old female referred for both colonoscopy and EGD. patient found to have anemia with iron deficient indices. She patient denies any obvious blood in her stools. She has had no nose bleeds or bruises. No additional stool studies studies have been done. Patient presented today for both colonoscopy an EGD to exclude any possible GI contributing cause for this. Family history is noncontributory. Review of Systems Review of Systems: All systems reviewed & are unremarkable except as noted in HPI and below PMFSH Past Medical History Medical History (Updated 04/06/24 @ 07:31 by Doroteo Stanley MD) Anxiety Chronic, continuous use of opioids Depression Diabetes type 2, controlled GERD (gastroesophageal reflux disease) High cholesterol Hx of half-way use of blood thinners Hypertension Hypothyroidism Migraines Pneumonia PTSD (post-traumatic stress disorder) Screening mammogram, encounter for Stomach ulcer Surgical History Surgical History History of bladder surgery 1998 interstim implant 1999 reposition of interstim implant History of dilation and curettage 05/09/85 dysfunctional uterine bleeding X3 History of hysterectomy (~1994) hysterectomy w/BSO and suspension History of orthopedic surgery 2011 lt leg injury History of parathyroidectomy 2010 benign tumor History of plastic surgery 2006 lt leg Family History Family History Mother Family history of migraine headaches Hypertension Family history of malignant neoplasm of kidney Family history of heart disease in male family member before age 55 Osteoporosis Grandparent Cerebrovascular accident Sibling Hypertension sister brother Social History Social History Smoking packs per day: 0.5 Smoking cigarettes per day: 10.0 Years smoked: 10 Smoking pack-years: 5.00 Smoking status: Former smoker Tobacco type: cigarettes Second hand tobacco smoke exposure: No Smoking end date: 08/10/14 Alcohol intake: never Substance use: current Substance use type: marijuana Other substance usage details: NIGHTLY FOR PAIN Living arrangements: alone Additional living arrangements comments: Occupation/Education: retired Gender identity (if verbalized by the patient): Female Sexual Orientation (if Verbalized by the Patient): Straight or Heterosexual Spiritual care concerns: No Meds Home Medications and Allergies Home Medications Medication Instructions Recorded Confirmed Type bupropion HCl 200 mg tablet,12 hr 200 mg PO DAILY 03/22/21 04/06/24 History sustained-release cyclobenzaprine 10 mg tablet 10 mg PO TID 03/22/21 04/06/24 History duloxetine 60 mg capsule,delayed 60 mg PO DAILY 03/22/21 04/06/24 History release hydrocodone 10 mg-acetaminophen 1 tablet PO Q8H 03/22/21 04/06/24 History 325 mg tablet levothyroxine 75 mcg tablet 75 mcg PO DAILY 03/22/21 04/06/24 History losartan 100 0.5 tablet PO DAILY 03/22/21 04/06/24 History mg-hydrochlorothiazide 25 mg tablet meloxicam 15 mg tablet 30 mg PO DAILY 03/22/21 04/06/24 History metformin 500 mg tablet 500 mg PO BID 03/22/21 04/06/24 History metoprolol succinate 50 mg 25 mg PO DAILY 03/22/21 04/06/24 History tablet,extended release 24 hr ondansetron HCl 8 mg tablet 8 mg PO Q8-12H PRN Nausea 03/22/21 04/06/24 History pantoprazole 40 mg tablet,delayed 40 mg PO BID 03/22/21 04/06/24 History release quetiapine 100 mg tablet 100 mg PO HS 03/22/21 04/06/24 History rosuvastatin 10 mg tablet 10 mg PO DAILY 03/22/21 04/06/24
[2024-04-06 08:31] VITALS: BP 129/66; PULSE 66; RESP 14; O2SAT 94
[2024-04-06 08:41] VITALS: BP 103/54; PULSE 65; RESP 16; O2SAT 98
[2024-04-06 08:51] VITALS: BP 145/77; PULSE 67; RESP 16; O2SAT 100
--- NOTE | 2024-04-06 11:34 | WPDANESPN ---
Anes - Prog Note Post-Op Date/Time: 04/06/24 11:34 Cardiovascular status: normal Respiratory status: normal Airway patency: baseline Mental status: baseline Post-Op hydration status: normal Vital Signs: Last Vital Signs Temp 36.3 C L 04/06/24 07:06 Pulse 67 04/06/24 08:51 Resp 16 04/06/24 08:51 BP 145/77 H 04/06/24 08:51 Pulse Ox 100 04/06/24 08:51 O2 Del Method Room Air 04/06/24 08:51 Pain Score (VAS): 0 I/O: Intake & Output 04/05/24 04/06/24 04/06/24 23:59 07:59 15:59 Intake Total 700 Balance 700 04/06/24 07:19 POC Capillary Glucose 90 Post-procedural complaints: none Patient Feedback: Patient satisfied with anesthetic care. Other Findings: Patient vital signs back to baseline. Patient denies nausea and vomiting. Patient's pain under control. Patient OK for discharge.
== END 2024-04-06 09:13 | disposition home or self-care (01) ==
PROVIDERS: PCP Physician Assistant; Visit Provider Internal Medicine Gastroenterology
PROC: 0DJ08ZZ Inspection of Upper Intestinal Tract, Via Natural or Artificial Opening Endoscopic (ICD-10-PCS; CPT 43235; principal; 2024-04-06 08:00)
PROC: 0DJD8ZZ Inspection of Lower Intestinal Tract, Via Natural or Artificial Opening Endoscopic (ICD-10-PCS; CPT 45378; 2024-04-06 08:00)
DX: D50.9 Iron deficiency anemia, unspecified (principal)
CPT/HCPCS: 45378; 43239

== ENCOUNTER 2024-04-06 07:00 | Outpatient (NON) | payer MEDICARE, SELFPAY | END 2024-04-06 07:01 | disposition home or self-care (01) | LOC: ANHLAB 04-07 07:57 | PROVIDERS: PCP Physician Assistant; Visit Provider Internal Medicine Gastroenterology | DX: D50.9 Iron deficiency anemia, unspecified (principal) | CPT/HCPCS: 88305 ==

== ENCOUNTER 2024-05-25 08:41 | Day surgery (SDC) | payer MEDICARE, SELFPAY ==
[2024-04-27 13:58] VITALS: BMI 26.6
[2024-05-10 11:46] VITALS: BMI 25.2
[2024-05-25 01:18] VITALS: BP 153/76; PULSE 63; RESP 18; O2SAT 99
--- NOTE | 2024-05-25 06:59 | WPDANESEPPF ---
Anes - Initial Pre Proc Eval Procedure: Operation Date: 05/25/24 11:00 Proposed Procedures p Diagnostic Colonoscopy - Doroteo Stanley MD Date/Time: 05/25/24 06:59 Surgeon: Doroteo Stanley MD Pre Op Diagnosis: Iron Deficiency Anemia Patient Data Age: 68 Gender: F Height: 1.75 m Weight: 77.5 kg Allergies Allergy/AdvReac Type Severity Reaction Status Date / Time bacitracin Allergy Severe Blister Verified 05/25/24 09:40 lisinopril Allergy Severe FACIAL Verified 05/25/24 09:40 SWELLING neomycin Allergy Severe Blister Verified 05/25/24 09:40 latex Allergy Intermediate Rash Verified 05/25/24 09:40 gramicidin D Allergy Mild Unknown Verified 05/25/24 09:40 milk AdvReac Severe Diarrhea Verified 05/25/24 09:40 polymyxin B AdvReac Severe Back Pain Verified 05/25/24 09:40 adhesive tape AdvReac Intermediate RASH Verified 05/25/24 09:40 Home Medications Medication Instructions Recorded Confirmed Type bupropion HCl 200 mg tablet,12 hr 200 mg PO DAILY 03/22/21 05/25/24 History sustained-release cyclobenzaprine 10 mg tablet 10 mg PO TID 03/22/21 05/25/24 History duloxetine 60 mg capsule,delayed 60 mg PO DAILY 03/22/21 05/25/24 History release hydrocodone 10 mg-acetaminophen 1 tablet PO Q8H PRN Pain 03/22/21 05/25/24 History 325 mg tablet levothyroxine 75 mcg tablet 75 mcg PO DAILY 03/22/21 05/25/24 History losartan 100 0.5 tablet PO DAILY 03/22/21 05/10/24 History mg-hydrochlorothiazide 25 mg tablet meloxicam 15 mg tablet 30 mg PO DAILY 03/22/21 05/10/24 History metformin 500 mg tablet 500 mg PO BID 03/22/21 05/10/24 History metoprolol succinate 50 mg 25 mg PO DAILY 03/22/21 05/10/24 History tablet,extended release 24 hr ondansetron HCl 8 mg tablet 8 mg PO Q8-12H PRN Nausea 03/22/21 05/10/24 History pantoprazole 40 mg tablet,delayed 40 mg PO BID 03/22/21 05/10/24 History release quetiapine 100 mg tablet 100 mg PO HS 03/22/21 05/10/24 History rosuvastatin 10 mg tablet 10 mg PO DAILY 03/22/21 05/10/24 History trazodone 50 mg tablet 200 mg PO HS 03/22/21 05/10/24 History cariprazine 4.5 mg capsule 4.5 mg PO DAILY 01/22/22 05/25/24 History (Vraylar) albuterol sulfate 90 mcg/actuation 2 puff inhalation QID PRN 08/10/22 05/25/24 Rx aerosol inhaler shortness of breath or wheezing #6.7 grams inhalational spacing device #1 ea 08/10/22 Rx (Aerochamber MV spacer) estradiol 1 mg tablet 1 mg PO DAILY #90 tabs 07/06/23 05/25/24 Rx peg 3350-electrolytes 236 240 ml PO Q10M #4,000 mL 04/27/24 Rx gram-22.74 gram-6.74 gram-5.86 gram solution (GaviLyte-G) Patient hx anesthesia problems: none Family hx anesthesia problems: none Results Review: All pre-operative results and documents have been reviewed as part of the pre-operative evaluation. 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 Hypertension Hypothyroidism Migraines Pneumonia PTSD (post-traumatic stress disorder) Screening mammogram, encounter for Stomach ulcer Surgical History Surgical History History of bladder surgery 1998 interstim implant 1999 reposition of interstim implant History of dilation and curettage 05/09/85 dysfunctional uterine bleeding X3 History of hysterectomy (~1994) hysterectomy w/BSO and suspension History of orthopedic surgery 2011 lt leg injury History of parathyroidectomy 2010 benign tumor History of plastic surgery 2005 lt leg Family History Family History Mother Family history of migraine headaches Hypertension Family history of malignant neoplasm of kidney Family history of heart disease in male family member before age 55 Osteoporosis Gran
--- NOTE | 2024-05-25 09:40 | PM.HPGS ---
History of Present Illness History of Present Illness Consent: Risks, benefits, and alternatives have been discussed and questions answered. Patient agrees to proceed with procedure. Chief complaint: Iron Deficiency Anemia Narrative: Blanca Laura is a 68 year old female presents for colonoscopy. Patient was found to have mild anemia with iron deficient indices. She denies any obvious bleeding. No stool Hemoccult has been obtained. Recent EGD was unremarkable. However colonoscopy could not be completed because of incomplete preparation. Patient returns today for colonoscopy. She denies any obvious blood in her stools. She has no abdominal pain. Family history is noncontributory. 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 Hypertension Hypothyroidism Migraines Pneumonia PTSD (post-traumatic stress disorder) Screening mammogram, encounter for Stomach ulcer Surgical History Surgical History History of bladder surgery 1998 interstim implant 1999 reposition of interstim implant History of dilation and curettage 05/09/85 dysfunctional uterine bleeding X3 History of hysterectomy (~1994) hysterectomy w/BSO and suspension History of orthopedic surgery 2011 lt leg injury History of parathyroidectomy 2010 benign tumor History of plastic surgery 2005 lt leg Family History Family History Mother Family history of migraine headaches Hypertension Family history of malignant neoplasm of kidney Family history of heart disease in male family member before age 55 Osteoporosis Grandparent Cerebrovascular accident Sibling Hypertension sister brother Social History Social History (Updated 04/06/24 @ 07:54 by Shawn Kaye DO) Smoking packs per day: 0.5 Smoking cigarettes per day: 10.0 Years smoked: 10 Smoking pack-years: 5.00 Smoking status: Current every day smoker Tobacco type: cigarettes Second hand tobacco smoke exposure: No Smoking end date: 08/10/14 Alcohol intake: current Alcohol use details: 2 per month Substance use: current Substance use type: marijuana Other substance usage details: Daily Living arrangements: with family Additional living arrangements comments: Occupation/Education: retired Gender identity (if verbalized by the patient): Female Sexual Orientation (if Verbalized by the Patient): Straight or Heterosexual Spiritual care concerns: No Meds Home Medications and Allergies Home Medications Medication Instructions Recorded Confirmed Type bupropion HCl 200 mg tablet,12 hr 200 mg PO DAILY 03/22/21 05/10/24 History sustained-release cyclobenzaprine 10 mg tablet 10 mg PO TID 03/22/21 05/10/24 History duloxetine 60 mg capsule,delayed 60 mg PO DAILY 03/22/21 05/10/24 History release hydrocodone 10 mg-acetaminophen 1 tablet PO Q8H PRN Pain 03/22/21 05/10/24 History 325 mg tablet levothyroxine 75 mcg tablet 75 mcg PO DAILY 03/22/21 05/10/24 History losartan 100 0.5 tablet PO DAILY 03/22/21 05/10/24 History mg-hydrochlorothiazide 25 mg tablet meloxicam 15 mg tablet 30 mg PO DAILY 03/22/21 05/10/24 History metformin 500 mg tablet 500 mg PO BID 03/22/21 05/10/24 History metoprolol succinate 50 mg 25 mg PO DAILY 03/22/21 05/10/24 History tablet,extended release 24 hr ondansetron HCl 8 mg tablet 8 mg PO Q8-12H PRN Nausea 03/22/21 05/10/24 History pantoprazole 40 mg tablet,delayed 40 mg PO BID 03/22/21 05/10/24 History release quetiapine 100 mg tablet 100 mg
[2024-05-25 10:05] VITALS: BMI 27.3
[2024-05-25 10:10] VITALS: BP 155/85; PULSE 71; RESP 20; TEMP 36.9; O2SAT 97
[2024-05-25] MEDS: LACTATED RINGERS 1,000 ML 150 ML IV CONT (10:12)
[2024-05-25 10:48] VITALS: BP 121/77; PULSE 69; RESP 18; O2SAT 100
[2024-05-25 10:58] VITALS: BP 135/77; PULSE 66; RESP 18; O2SAT 99
[2024-05-25 11:26] LABS: Glucose Point of Care 102 mg/dl (65-105)
--- NOTE | 2024-05-25 12:33 | WPDANESPN ---
Anes - Prog Note Post-Op Date/Time: 05/25/24 12:33 Cardiovascular status: normal Respiratory status: normal Airway patency: baseline Mental status: baseline Post-Op hydration status: normal Vital Signs: Last Vital Signs Temp 36.9 C 05/25/24 10:10 Pulse 66 05/25/24 10:58 Resp 18 05/25/24 10:58 BP 135/77 05/25/24 10:58 Pulse Ox 99 05/25/24 10:58 O2 Del Method Room Air 05/25/24 10:58 Pain Score (VAS): 0 I/O: Intake & Output 05/24/24 05/25/24 05/25/24 23:59 07:59 15:59 Intake Total 700 Balance 700 05/25/24 10:04 POC Capillary Glucose 102 Post-procedural complaints: none Patient Feedback: Patient satisfied with anesthetic care. Other Findings: Patient vital signs back to baseline. Patient denies nausea and vomiting. Patient's pain under control. Patient OK for discharge.
== END 2024-05-25 11:20 | disposition home or self-care (01) ==
PROVIDERS: PCP Physician Assistant; Visit Provider Internal Medicine Gastroenterology
PROC: 0DJD8ZZ Inspection of Lower Intestinal Tract, Via Natural or Artificial Opening Endoscopic (ICD-10-PCS; CPT 45378; principal; 2024-05-25 11:00)
DX: D50.9 Iron deficiency anemia, unspecified (principal)
CPT/HCPCS: 45378

== ENCOUNTER 2024-09-23 11:23 | Outpatient (CLI) | payer MEDICARE, SELFPAY ==
--- OUTSIDE RECORDS SUMMARY | 2024-09-23 11:37 | XMS_ITS ---
Author Organization [facility] Address [address] [place] [address] Care Team Providers Care Afloat Cryptologic Manager Name Role Phone Krala Cardona Unavailable [phone] Allergies Allergen (clinical drug ingredient) Drug/Non Drug Allergy documented on EMR Reaction Allergy Type Onset Date Status lisinopril Lisinopril Unknown Drug Allergy 06/23/2023 Acti ve Latex Latex Unknown Allergy 06/23/2023 Active REASON FOR VISIT follow up Medications Medication SIG (Take, Route, Frequency, Duration) Notes Start Date End Date Status Vraylar 3 MG 1 capsule Orally Once a day for 30 days 02/19/2024 Active traZODone HCl 100 MG 2 tablets Oral daily at bedtime for 30 days Active buPROPion HCl ER (XL) 150 MG 1 tablet in the morning Orally Once a day for 30 days Active DULoxetine HCl 60 MG 1 capsule Orally Once a day for 30 days Active Vraylar 3 mg 1 capsule Oral daily for 30 days Active Meloxicam 15 MG Oral 09/23/2023 Act anthony Losartan Potassium-HCTZ 100-25 MG Oral 09/23/2023 Active OptiChamber Caitlin MISCELLANEOUS 09/23/2023 Active Estradiol 1 MG Oral 09/23/2023 Acti ve metFORMIN HCl 500 MG Oral 09/23/2023 Active Cyclobenzaprine HCl 10 MG Oral 09/23/2023 Active Rosuvastatin Calcium 10 MG Oral 09/23/2023 Active Levothyroxine Sodium 75 MCG Oral 09/23/2023 Active HYDROcodone-Acetaminop hen 10-325 MG Oral 09/23/2023 Active Pantoprazole Sodium 40 MG Oral 09/23/2023 Active Metoprolol Succinate ER 50 MG Oral 09/23/2023 Active STIMULANT LAXATIVE PLUS 8.6-50 mg Oral *Reorder from [employer] for eRx and Interaction Alerts* 09/23/2023 Active Diclofenac Sodium 1% Transdermal 09/23/2023 Active Social History Tobacco Use: Social History Observation Description Date Details (start date - stop date) Light tobacco s moker NA - NA Sex Assigned At : Social History Observation Description Sex Assigned At Female Tobacco Control (Standard) Question Answer Notes Tobacco use: Light tobacco smoker Section Notes: Social History Substance Use Do you or have you ever smoked tobacco?: Current some days smoker How many years have you smoked tobacco?: 45 At what age did you start smoking tobacco?: 16 How much tobacco do you smoke?: 1 pack per week When did you quit smoking?: 1-5 years since last cigarette Do you or have you ever used e-cigarettes or vape?: Current user of electronic cigarettes Do you or have you ever used smokeless tobacco?: Never used smokeless tobacco What was the date of your most recent tobacco screening?: 01/01/2023 Has tobacco cessation counseling been provided?: No What is your level of alcohol consumption?: Occasional How many years have you consumed alcohol?: 25 Have you ever been counseled for unhealthy alcohol use?: No Do you use any illicit or recreational drugs?: No Which illicit or recreational drugs have you used?: Marijuana Have you used IV drugs?: No What is your level of caffeine consumption?: Occasional Education and Occupation What is the highest grade or level of school you have completed or the highest degree you have received?: High school graduate Are you currently employed?: No Who is your employer?: None Marriage and Sexuality What is your relationship status?: Are you sexually active?: No Do you use protection during sex?: No How many children do you have?: 1 Home and Environment Do you have any siblings?: 2 Are there any guns present in your home?: No Diet and Exercise What type of diet are you following?: Regular Advance Directive Do you have an advance directive?: No Do you have a medical power of disability attorney?: No Gender Identity and LGBTQ Identity Sexual orientation: Straight or heterosexual Vital Signs Blood pressure systolic 161 mm Hg 05/20/20 24 Blood pressure diastolic 89 mm Hg 024 Heart Rate 73 /min 05/20/2024 Height 70.00 in 05/20/2024 Height-cm 177.80 cm 05/20/2024 Encounters Encounter Location Date Provider Diagnosis [facility] [employer] [address] [place] [address] 05/20/2024 Karla Robinsmar Major depressive disorder, recurrent, mild F33.0 ; Primary insomnia F51.01 and Generalized anxiety disorder F41.1 Assessments Encounter Date Diagnosis (ICD Code) Assessment Notes Treatment Notes Treatment Clinical Notes Section Notes 05/20/2024 Major depressive disorder, recurrent, mild (ICD-10 - F33.0) cont bupropion XL 150mg qam cont vraylar 3mg daily cont duloxetine 60mg daily stable, doing well no new orders, education meds and treatment course had labs in February, sign JACKIE for results f/u in 4 months, earlier if concerns -discussed transition to new provider as I am leaving the practice after this month note: opiate pain management 05/20/2024 Primary insomnia (ICD-10 - F51.01) cont trazodone 200mg qhs practice good sleep hygiene 05/20/2024 Generalized anxiety disorder (ICD-10 - F41.1) meds as above 05/20/2024 Other Plan Of Treatment Medication Medication Name Sig Start Date Stop Date Notes traZODone HCl 100 MG 2 tablets Oral sheldon y at bedtime for 30 days buPROPion HCl ER (XL) 150 MG 1 tablet in the morning Orally Once a day for 30 days DULoxetine HCl 60 MG 1 capsule Orally On ce a day for 30 days Vraylar 3 mg 1 capsule Oral daily for 30 days Treatment Notes Assessment Notes Major depressive disorder, recurrent, mi ld cont bupropion XL 150mg qam cont vraylar 3mg daily cont duloxetine 60mg daily Primary insomnia cont trazodone 200mg qhs practice good sleep hygiene Generalized anxiety disorder meds as abo ve Next Appt Details Follow Up: 4 Months; JACKIE lab results Melanie Lerner PCP, Reason: Provider Name:Renae vance, 10/05/2024 02:15:00 PM, [address], [address], [place], [address], Progress Notes * AYDEE LOVELACEDOB: [birth year] (68 yo F)Acc No.[id number]:05/20/2024 Patient: AYDEE LEZAMA Provider: CRISPIN BLANCAS :1955 A ge:68 Y S ex:Female Date:05/20/2024 Address:[address] [place], [place] [id number] Subjective: * Chief Complaints: * 1 . Follow up. * HPI: [place]-Suicide Severity Rating Scale: Suicide Risk (CSRS-screener) i n the past one month Have you wished you were or wished you could go to sleep and not wake up? N o, i n the past one month Have you actually had any thoughts of killing yourself? N o. D epression Screening: JONATHAN-7 (2018 Edition) F eeling nervous, anxious, or on edge?Several days, N ot being able to stop or control worrying S everal days, W orrying too much about different things S everal days, T rouble relaxing S everal days, B eing so restless that it is hard to sit still S everal , B ecoming easily annoyed or irritable N ot at all, F eeling afraid as if something awful might happen S everal , T otal JONATHAN-7 Score 6 , I f you checked any problems, how difficult have they made it for you to do your work, take care of things at home, or get along with other people? S omewhat difficult, I nterpretation of Total ( 5 to 9) Mild. D epression screening: PHQ-9 L ittle interest or pleasure in doing things S everal days, F eeling down, depressed, or hopeless N ot at all, T rouble falling or staying asleep, or sleeping too much S everal days, F eeling tired or having little energy S everal days, P oor appetite or overeating N ot at all, F eeling bad about yourself or that you are a failure, or have let yourself or your family down S everal days, T rouble concentrating on things, such as reading the newspaper or watching television S ever, M oving or speaking so slowly that other people could have noticed; or the opposite, being so fidgety or restless that you have been moving around a lot more than usual S , T houghts that you would be better off or of hurting yourself in some way N ot at all, T otal Score 6, I nterpretation M ild Depression. I ntervention D epression Screening Findings P ositve, F ollow-Up for Depression E motional support education, Management of mental health treatment, S uicide Risk Assessment Performed 1 , A dditional Evaluation for Depression P sychiatric interview and evaluation, N simon of the standardized tool used for adult depression screening: P atient Health Questionnaire (PHQ-9). H istory of Presenting Problem: 68 y/o female, , here to follow up for depression, anxiety, and insomnia. no med change last visit, denies side effects. Taking as prescribed. Things are going well, no concerns. depression just some days mild, manageable, denies SI. anxiety ok. No panic attacks. No problems sleeping. Appetite normal. memory is ok, it's fine, I'm not forgetting anything. Medical: go for colonoscopy next week. [facility] insights: can see PCP Melanie Lerner, ordered 02/10/24 liver panel, BMP, vit B12 and folate, lipid, A1c, TSH and free T4, iron panel, CBC. Do not see results. Pt reports PCP told her everything was fine. G eneral Follow Up: ongoing notes: I was not in a good place before I went on the vraylar. 05/28/23 PCP labs: hgb A1C 5.9, CMP -glucose 120, TSH 0.881, CBC-anemia, iron studies. Pt states in appt, was not fasting for labs, and they are working on anemia. * ROS: P sychiatric: Comments S angela [facility] for details. * Medical History: P roblems: Benign essential hypertension, Enthesopathy of hip region, Gastroesophageal reflux disease, Generalized anxiety disorder, History of clinical finding in subject, Hyperlipidemia, Hypothyroidism, Impaired glucose tolerance, Insomnia, Mild recurrent major depression, Primary insomnia, Severe recurrent major depression without psychotic features, Type 2 diabetes mellitus, ,. * Surgical History: A ny surgical history , Cosmetic surgery , Removal of gallbladder (27409) , Hysterectomy (77068) , Hysterectomy (11466) 08/10/1994, Removal of gallbladder (49552) 08/10/2000, endoscopy 04/2024. * Hospitalization/Major Diagno stic Procedure: D enies Past Hospitalization. * Family History: S ister: Anxiety disorder . * Social History: T obacco Use: T obacco Control (Standard) T obacco use: L ight tobacco smoker. M igrated Social History: M igrated Social History: Alcohol Intake: Occasional 08/18/2018,Tobacco Years: Current some days smoker 09/23/2023,Smoking Status: 45 09/23/2023. M iscellaneous: A dvance Care Planning A re you your own decision-maker Y es, D o you have Power of Revenue Cycle Consultant for Health or Medical? N o. S ocial History Substance Use Do you or have you ever smoked tobacco?: Current some days smoker How many years have you smoked tobacco?: 45 At what age did you start smoking tobacco?: 16 How much tobacco do you smoke?: 1 pack per week When did you quit smoking?: 1-5 years since last cigarette Do you or have you ever used e-cigarettes or vape?: Current user of electronic cigarettes Do you or have you ever used smokeless tobacco?: Never used smokeless tobacco What was the date of your most recent tobacco screening?: 01/01/2023 Has tobacco cessation counseling been provided?: No What is your level of alcohol consumption?: Occasional How many years have you consumed alcohol?: 25 Have you ever been counseled for unhealthy alcohol use?: No Do you use any illicit or recreational drugs?: No Which illicit or recreational drugs have you used?: Marijuana Have you used IV drugs?: No What is your level of caffeine consumption?: Occasional Education and Occupation What is the highest grade or level of school you have completed or the highest degree you have received?: High school graduate Are you currently employed?: No Who is your employer?: None Marriage and Sexuality What is your relationship status?: Are you sexually active?: No Do you use protection during sex?: No How many children do you have?: 1 Home and Environment Do you have any siblings?: 2 Are there any guns present in your home?: No Diet and Exercise What type of diet are you following?: Regular Advance Directive Do you have an advance directive?: No Do you have a medical power of disability attorney?: No Gender Identity and LGBTQ Identity Sexual orientation: Straight or heterosexual. * Medications: T aking Diclofenac Sodium 1% Gel Transdermal , Taking Metoprolol Succinate ER 50 MG Tablet Extended Release 24 Hour Oral , Taking STIMULANT LAXATIVE PLUS 8.6-50 mg Tablet Oral , Notes to Pharmacist: *Reorder from [facility] for eRx and Interaction Alerts*, Taking HYDROcodone-Acetaminophen 10-325 MG Tablet Oral , Taking Pantoprazole Sodium 40 MG Tablet Delayed Release Oral , Taking Rosuvastatin Calcium 10 MG Tablet Oral , Taking Levothyroxine Sodium 75 MCG Tablet Oral , Taking Cyclobenzaprine HCl 10 MG Tablet Oral , Taking Meloxicam 15 MG Tablet Oral , Taking Estradiol 1 MG Tablet Oral , Taking metFORMIN HCl 500 MG Tablet Oral , Taking OptiChamber Caitlin SPACER (EA) MISCELLANEOUS , Taking Losartan Potassium-HCTZ 100-25 MG Tablet Oral , Taking Vraylar 3 mg Capsule 1 capsule Oral daily , Taking buPROPion HCl ER (XL) 150 MG Tablet Extended Release 24 Hour 1 tablet in the morning Orally Once a day , Taking DULoxetine HCl 60 MG Capsule Delayed Release Particles 1 capsule Orally Once a day , Taking traZODone HCl 100 MG Tablet 2 tablets Oral daily at bedtime , Taking Vraylar 3 MG Capsule 1 capsule Orally Once a day , Medication List reviewed and reconciled with the patient * Allergies: L isinopril: Allergy - Onset Date 06/23/2023, Latex: Allergy - Onset Date 06/23/2023. Objective: * Vitals: B P:161/89mm Hg, HR:73/min, Wt: Not Taken - Declined by Patient, Ht: 70.00 in, Ht- cm: 177.80 cm. * Examination: F unctional Assessment: Mcginnis Index of ADL . Physical Functioning . 1 point for independence, 0 for help. P sychiatry: Dementia . Appearance: C onstitutional: Appearance alert, well-groomed, clean, appears well rested. No acute physical distress. Behavior: eye contact good, cooperative, pleasant. Abnormal body movements: n one. Affect / mood: a ppropriate, full range. Attention: g ood. Attitude: c ooperative. Suicidal ideation: n one. Memory status: n o impairment noted. Degree of awareness of surroundings: w ithin normal limits.? Delusions: n o. Hallucinations: n o. Insight: g ood. Intellectual functioning: n o impairment noted. Judgement: g ood. Orientation: a wake, alert and oriented x 3. Perceptual disorders: n o perceptual disorder noted. Psychomotor activity: w ithin normal range. Speech / language: a ppropriate pitch/modulation, clear and coherent, normal rate, volume, and articulation (RVR), proper grammar used. Thought content: a ppropriate. Thought process: i ntact. Assessment: * Assessment: 1. M ajor depressive disorder, recurrent, mild - F33.0 (Primary) 2 . P rimary insomnia - F51.01 3 . G eneralized anxiety disorder - F41.1 Plan: * Treatment: 2. P rimary insomnia Refill traZODone HCl Tablet, 100 MG, 2 tablets, Oral, daily at bedtime, 30 days, 60, Refills 3.? Notes: cont trazodone 200mg qhs practice good sleep hygiene 3. G eneralized anxiety disorder Notes: meds as above * Procedure Codes: 9 6127 BEHAV ASSMT W/SCORE & DOCD/STAND INSTRUMENT * Follow Up: 4 Months; JACKIE lab results Melanie Lerner PCP * Billing Information: * Visit Code: * Procedure Codes: 97694 BEHAV ASSMT W/SCORE & DOCD/STAND INSTRUMENT. * Sign off status: Completed true * Provider: CRISPIN BLANCAS Date: 1 Generated for Roberto butler/Trevon/Donna on: 0 09/23/2024 11:37 AM WIND T[employer]NEL ENGINEER History and Physical Notes * HPI (History of Present Illness) Category Sub-Category Detail Notes Category Not es History of Presenting Problem 68 y/o female, , here to follow up for depression, anxiety, and insomnia. no med change last visit, denies side effects. Taking as prescribed. Things are going well, no concerns. depression just some days mild, manageable, denies SI. anxiety ok. No panic attacks. No problems sleeping. Appetite normal. memory is ok, it's fine, I'm not forgetting anything. Medical: go for colonoscopy next week. [place] insights: can see PCP Melanie Lerner, ordered 02/10/24 liver panel, BMP, vit B12 and folate, lipid, A1c, TSH and free T4, iron panel, CBC. Do not see results. Pt reports PCP told her everything was fine. Depression screening PHQ-9 Little inte rest or pleasure in doing things: Several days Feeling down, depressed, or hopeless: No t at all Trouble falling or staying asleep, or sl eeping too much: Several days Feeling tired or having little energy: S everal days Poor appetite or overeating: Not at all Feeling bad about yourself o r that you are a failure, or have let yourself or your family down: Several days Trouble concentrating on thi ngs, such as reading the newspaper or watching television: Several days Moving or speaking so slowly that other people could have noticed; or the opposite, being so fidgety or restless that you have been moving around a lot more than usual: Several days Thoughts that you would be b darryl off or of hurting yourself in some way: Not at all Total Score: 6 Interpretation: Mild Depression Intervention Depression Screening Findings: P ositve Follow-Up for Depression: Em otional support education, Management of mental health treatment Suicide Risk Assessment Performed: 05/20 Additional Evaluation for De pression: Psychiatric interview and evaluation Name of the standardized too l used for adult depression screening:: Patient Health Questionnaire (PHQ-9) Depression Screening JONATHAN-7 (2018 Edition) Feelin g nervous, anxious, or on edge: Several days Not being able to stop or control worryi ng: Several days Worrying too much about different things : Several days Trouble relaxing: Several days Being so restless that it is hard to sit still: Several days Becoming easily annoyed or irritable: No t at all Feeling afraid as if something awful mihir ht happen: Several days Total JONATHAN-7 Score: 6 If you checked any problems, how difficult have they made it for you to do your work, take care of things at home, or get along with other people?: Somewhat difficult Interpretation of Total: (5 to 9) Mild [place]-Suicide Severity Rating Scale Suicide Risk (CSRS-screener) in the past one month Have you wished you were or wished you could go to sleep and not wake up?: No in the past one month Have y ou actually had any thoughts of killing yourself?: No Examination Category Sub-Category Detail Notes Category Not es Psychiatry Appearance: Constitutional: Appearance alert, well-groomed, clean, appears well rested. No acute physical distress. Behavior: eye contact good, cooperative, pleasant Attitude: cooperative Psychomotor activity: within normal rang e Abnormal body movements: none Attention: good Degree of awareness of surroundings: wit hin normal limits Orientation: awake, alert and derrick ented x 3 Affect / mood: appropriate, full ra nge Speech / language: appropriate pitch/mo dulation, clear and coherent, normal rate, volume, and articulation (RVR), proper grammar used Insight: good Judgement: good Thought process: intact Thought content: appropriate Perceptual disorders: no perceptual diso rder noted Suicidal ideation: none Intellectual functioning: no impairment noted Memory status: no impairment noted Delusions: no Hallucinations: no Dementia Safety concern scree claudia for dangerousness to self and environment risks provided:: Yes What action was taken to mitigate the risk?: Education provided Topics discussed for environmental risks:: Home safety risks that could arise from cooking or smoking, Access to firearms or other weapons, Access to potentially dangerous chemicals and other materials Topics discussed for dangerousness to self:: Medication misuse, Financial mismanagement Safety concern mitigation recommendation provided:: Not required Screening Result:: Negative Caregiver education and support provided : Yes Functional Assessment Mcginnis Index of ADL Score:: 6 1 point for independence, 0 for help 1 point for independence, 0 for help Physical Functioning Personal hygiene: i ncluding combing hair, brushing teeth, shaving, applying makeup, washing/drying face and hands (exclude baths and showers): Independent (1) Bathing: how client takes fu ll-body bath/shower or sponge bath (exclude washing of back and hair). Includes how each part of body is bathed: arms, upper and lower legs, chest, abdomen, perineal area. (code for most dependent episode in last 7 days): Independent (1) Dressing upper body: how cli ent dresses and undresses (street clothes, underwear) above the waist, includes prostheses, orthotics, fasteners, pullovers, etc.: Independent (1) Dressing lower body: how cli ent dresses and undresses (street clothes, underwear), from the waist down, includes prostheses, orthotics, belts, pants, skirts, shoes, and fasteners: Independent (1) Eating - Including taking in food by any method, including tube feedings: Independent (1) Toilet use: including using the toilet room or commode, bedpan, urinal, transferring on/off toilet, cleaning self after toilet use or incontinent episode, changing pad, managing any special devices required (ostomy or catheter), and adjusting clothes.: Independent (1) Transfer: including moving t o and between surfaces--to/from bed, chair, wheelchair, standing position (excludes to/from bath/toilet): Independent (1) Transportation: No difficulty Continence:: Independent (1)
--- OUTSIDE RECORDS SUMMARY | 2024-09-23 11:37 | XMS_ITS | Data Portability ---
Author Organization [facility] URIARTE Address [address] [place] [address] Care Team Providers Care [employer] Erector Name Role Phone MACIEJ RICHARDS Primary Care Provider Unavailab le Assessment Encounter Date Assessment Date Assessment LastModified by Organization Details LastModified Time 08/22/2024 08/22/2024 Mammogram and DEXA scheduled for december and march dental UTD eye exam due labs due Not available 09/08/2024 21:47:34 Plan of Treatment Reminders Order Date Submit Date Provider Last Modified By Organization Details Last Modified Time Details Appointments ANY 15 2024 02:15P M CLAUDIA Morris Not available Not available Not available Lab HbA1c (hemoglob in A1c), blood [address] [facility], [address] [place] [address], [id number], 09/12/2024 09:56:27 hepatic function panel, serum [address] [facility], [facility] [address], [address], 09/12/2024 09:56:27 BMP, serum or plasma [address] [facility], [address], [address], 09/12/2024 09:56:27 TSH + free T4, serum [address] [facility], [address], [address], 09/12/2024 09:56:27 lipid panel, serum [address] [facility], [address] [place] [address], [id number], 09/12/2024 09:56:27 iron + TIBC + ferritin, serum [address] [facility], [address] [place] [address], [address], 09/12/2024 09:56:26 CBC w/ auto diff [address] [facility], [address] [place] [address], [address], 09/12/2024 09:56:27 hepatic function panel, serum 2023 024 [facility], [address] [place] [address], [address], 03/23/2024 15:26:05 BMP, serum or plasma 2023 024 [facility], [address] [place] [address], [address], 03/23/2024 15:26:16 vitamin B12 + folate, serum or blood 2023 024 [facility], [address] [place] [address], [address], 03/23/2024 15:25:55 lipid panel, serum 2023 024 [facility], [address] [place] [address], [address], 03/23/2024 15:27:50 HbA1c (hemoglob in A1c), blood 2023 024 [facility], [address] [place] [address], [address], 03/23/2024 15:27:14 microalbu min, urine 2023 024 [facility], [address] [place] [address], [place], [address], 03/23/2024 15:26:58 TSH + free T4, serum 2023 024 [facility], [address] [facility] [address], [place], [address], 03/23/2024 15:26:32 iron + TIBC + ferritin, serum 2023 024 [facility], [address] [facility] [address], [place], [address], 03/23/2024 15:27:34 CBC w/ auto diff 2023 024 [facility], [address] [facility] [address], [place], [address], 04/14/2024 15:28:40 Referral None recorded. Procedures upper endoscopy (EGD) with diagnosti c colonosco py (PROC) [address] [facility], [address] [facility] [address], [address], [place], [address], 04/19/2024 12:08:20 Surgeries None recorded. Imaging DEXA 2023 024 [email or web address], [address], [place], [address], 08/26/2024 10:34:16 MAMMO, screening , digital, bilateral 2023 024 [email or web address], [address], [place], [address], 08/26/2024 10:34:16 Medication Orders Ozempic 0.25 mg or 0.5 mg (2 mg/3 mL) subcutane ous pen injector 2024 025 [id number], [address] [facility], [place], [place], [id number], 08/22/2024 16:00:17 Patient TargetsNo targets recorded. Patient Instructions Encounter Date Encounter Id Patient Instructions Last Modified By Organization Details Last Modified Time 08/22/2024 [id number] A healthy lifestyle: care instructions Not available 08/22/2024 15:55:42 Reason for Referral None Reported. Results Created Date Observation Date Name Description Value Unit Range Abnormal Flag Note LastModifiedBy Organization Detail LastModifiedTime Result Notes None recorded. Problems Name Problem SNOMED Code Status Onset Date Resolution Date Notes Provider Name and Address Organization Details Recorded Time Hypothyroid ism 00909594 Active 2023 Vianca Angel null, [place] [facility] 4 13:47:23 Hyperlipide thi 24188260 Active 2023 V[place] [facility] 4 13:47:38 Gastroesoph ageal reflux disease 382137253 Active 2023 V[place] [facility] 4 13:47:42 Well controlled type 2 diabetes mellitus 420742848 Active 2023 CLAUDIA Morris Attn: Viri christina,[address] [place], [address], [place] [facility] 4 12:52:34 Iron deficiency anemia 13641655 Active 2023 CLAUDIA Morris Attn: Viri christina,[address] [place], [address], [place] [facility] 4 12:53:07 Long-term drug therapy Active 2023 CLAUDIA Morris Attn: Viri g,[address] [place], [address], [place] [facility] 4 12:54:46 Body mass index 25-29 - overweight 394819049 Active 2023 CLAUDIA Morris Attn: Viri christina,[address] [place], [address], [place] [facility] 4 12:54:59 Osteoporosi s 49410479 Active 2023 CLAUDIA Morris Attn: Viri christina,[address] [facility], [place], [address], [facility] 4 12:55:06 Benign essential hypertensio n 5954730 Active 2023 CLAUDIA Morris Attn: Viri christina,[address] [facility], [place], [address], [facility] 4 12:55:27 Positive screening for depression on PHQ-9 (Patient Health Questionnai re 9) 7928404733921 00 Active 2023 CLAUDIA Morris Attn: Viri christina,[address] [facility], [place], [address], [facility] 4 12:56:20 Problem Notes None recorded. Procedures Surgical History Date Name Laterality Status Provider Name and Address Organization Details Recorded Time Arthroscopic Surgery completed Eleuterio El MA [facility] 02/10/2024 16:19:27 Knee Surgery completed Eleuterio El MA [facility] 02/10/2024 16:19:32 hysterectomy completed Eleuterio El MA [facility] 02/10/2024 16:19:39 Imaging Results None recorded. Procedure Notes None recorded. Medical Equipment None Reported. Allergies Allergen ID Allergen Name Allergen Category Reaction Reaction Severity Criticality Documentation Date Start Date Code Code System Note Provider Name and Address Organization Details Recorded Time 896199 cow milk allergeni c extract food,medi cation Not available Not available Not available 02/10/2024 58215 5 RxNorm Not Available Not Available Not Available 463194 latex environme nt,medica tion Not available Not available Not available 02/10/2024 90063 91 RxNorm Not Available Not Available Not Available 375426 neomycin / polymyxin B / pramoxine medicatio n Not available Not available Not available 02/10/2024 79782 9 RxNorm Not Available Not Available Not Available Medications Name Sig Start Date Stop Date Status Note LastModified by Organization Details LastModified Time cyclobenzap rine 10 mg tablet TAKE 1 TABLET BY MOUTH THREE TIMES DAILY NEEDED active Not Available Not Available No t Available buspirone 5 mg tablet TAKE 1 TABLET BY MOUTH TWICE DAILY 02/09 completed Not Available Not Available Not Available metformin 500 mg tablet TAKE 1 TABLET BY MOUTH TWICE DAILY WITH THE MORNING AND EVENING MEAL active Not Available Not Available No t Available metoprolol succinate ER 50 mg tablet,exte nded release 24 hr TAKE 1/2 TABLET BY MOUTH DAILY active Not Available Not Available No t Available meloxicam 15 mg tablet TAKE 1 TABLET BY MOUTH TWICE DAILY NEEDED active Not Available Not Available No t Available hydrocodone 10 mg-acetamin ophen 325 mg tablet TAKE 1 TABLET BY MOUTH THREE TIMES DAILY NEEDED active Not Available Not Available No t Available levothyroxi ne 75 mcg tablet TAKE 1 TABLET BY MOUTH EVERY DAY active Not Available Not Available No t Available losartan 100 mg-hydrochl orothiazide 25 mg tablet TAKE 1 TABLET BY MOUTH DAILY 2023 active Not Available Not Available Not Avai lable estradiol 1 mg tablet TAKE 1 TABLET BY MOUTH DAILY active Not Available Not Available No t Available trazodone 100 mg tablet TAKE 2 TABLETS BY MOUTH EVERY NIGHT AT BEDTIME active Not Available Not Available No t Available hydrocodone 7.5 mg-acetamin ophen 325 mg tablet TAKE 1 TABLET BY MOUTH THREE TIMES DAILY. 02/09 completed Not Available Not Available Not Available pantoprazol e 40 mg tablet,richie yed release TAKE 1 TABLET BY MOUTH TWICE DAILY active Not Available Not Available No t Available acetaminoph en 300 mg-codeine 60 mg tablet TAKE 1 TABLET BY MOUTH FOUR TIMES DAILY NEEDED 02/09 completed Not Available Not Available Not Available amoxicillin 875 mg-potassiu m clavulanate 125 mg tablet TAKE 1 TABLET BY MOUTH TWICE DAILY FOR 10 DAYS 02/09 completed Not Available Not Available Not Available rosuvastati n 10 mg tablet TAKE 1 TABLET BY MOUTH DAILY active Not Available Not Available No t Available bupropion HCl XL 150 mg 24 hr tablet, extended release TAKE 1 TABLET BY MOUTH DAILY IN THE MORNING active Not Available Not Available No t Available duloxetine 60 mg capsule,del ayed release TAKE 1 CAPSULE BY MOUTH DAILY active Not Available Not Available No t Available diclofenac 1 % topical gel APPLY 2 GRAMS TO THE AFFECTED EXTREMITI ES FOUR TIMES DAILY NEEDED active Not Available Not Available No t Available GaviLyte-G 236 gram-22.74 gram-6.74 gram-5.86 gram oral solution MIX AND DRINK 240ML BY MOUTH EVERY 10 MINUTES DIRECTED BY OFFICE. DIRECTION S WERE MAILED TO YOU. active Not Available Not Available No t Available sodium,pota ssium,mag sulfates 17.5 gram-3.13 gram-1.6 gram oral soln USE DIRECTED PER WRITTEN INSTRUCTI ONS THAT WERE MAILED TO PATIENT active Not Available Not Available No t Available Movantik 25 mg tablet TAKE 1 TABLET BY MOUTH EVERY DAY NEEDED active Not Available Not Available No t Available Vraylar 3 mg capsule TAKE 1 CAPSULE BY MOUTH DAILY active Not Available Not Available No t Available Ozempic 0.25 mg or 0.5 mg (2 mg/3 mL) subcutaneou s pen injector INJECT 0.25 MG UNDER THE SKIN ONCE WEEKLY active Not Available Not Available No t Available Vitals Date Recorded Respiratory rate Body height Oxygen saturation Oxygen saturation in Arterial blood by Pulse oximetry Heart rate Body mass index (BMI) Body weight Systolic blood pressure Diastolic blood pressure Provider Name and Address Organization Details Last Updated DateTime 4 20 /min 175.26 cm 98 % 98 % 68 /min 26.6 kg/m2 50837.0 6 g 128 mm[Hg] 78 mm[Hg] Eleuterio El MA [facility] 4 15:27:15 Date Recorded Systolic blood pressure Diastolic blood pressure Provider Name and Address Organization Details Last Updated DateTime 02/10/2024 110 mm[Hg] 80 mm[Hg] CLAUDIA Morris Attn: Accounting,[address] [place], [address], [facility] 02/10/2024 15:37:44 Date Recorded Body height Respiratory rate Body mass index (BMI) Body weight Oxygen saturation Oxygen saturation in Arterial blood by Pulse oximetry Heart rate Systolic blood pressure Diastolic blood pressure Provider Name and Address Organization Details Last Updated DateTime 5 175.26 cm 20 /min 26.6 kg/m2 10106.6 3 g 96 % 96 % 74 /min 138 mm[Hg] 78 mm[Hg] Eleuterio El MA [facility] 5 15:33:27 Date Recorded Systolic blood pressure Diastolic blood pressure Provider Name and Address Organization Details Last Updated DateTime 09/08/2024 130 mm[Hg] 80 mm[Hg] CLAUDIA Morris Attn: Accounting,[address] [facility], [place], [address], [facility] 09/08/2024 21:45:40 Social History Question Answer Notes LastModified by Organizat ion Details LastModified Time Tobacco Smoking Status Current Some Day Smoker Eleuterio El MA [facility], [facility] 02/10/2024 15:24:23 Do You Have An Advance Directive? No Information not available 02/10/2024 What Is Your Level Of Alcohol Consumption? None Information not available 02/10/2024 Are You Blind Or Do You Have Difficulty Seeing? No Glasses Information not available 02/10/2024 What Is Your Level Of Caffeine Consumption? None Water Information not available 02/10/2024 In The 14 Days Before Symptom Onset, Have You Had Close Contact With A Laboratory-confir med COVID-19 While That Case Was Ill? No Information not available 02/09/2024 In The 14 Days Before Symptom Onset, Have You Had Close Contact With A Person Who Is Under Investigation For COVID-19 While That Person Was Ill? No Information not available 02/09/2024 Have You Been To An Area Known To Be High Risk For COVID-19? No Information not available 02/09/2024 Are You Deaf Or Do You Have Serious Difficulty Hearing? No Hard & Hearing Information not available 02/10/2024 What Type Of Diet Are You Following? REGULAR Information not available 02/10/2024 Are There Any Guns Present In Your Home? No Information not available 02/10/2024 What Was The Date Of Your Most Recent Tobacco Screening? 08/22/2024 Information not available 08/22/2024 What Is Your Current Pack Years? 10-19packye ars Information not available 02/10/2024 Do You Use Your Seat Belt Or Car Seat Routinely? Yes Information not available 02/09/2024 Do You Have Smoke And Carbon Monoxide Detectors In Your Home? Yes Information not available 02/09/2024 How Much Tobacco Do You Smoke? No Only 3 Information not available 02/10/2024 Do You Feel Stressed (tense, Restless, Nervous, Or Anxious, Or Unable To Sleep At Night)? [id number] Information not available 02/10/2024 Do You Use Any Illicit Or Recreational Drugs? No Information not available 02/10/2024 Do You Use Sunscreen Routinely? No Information not available 02/10/2024 Has Tobacco Cessation Counseling Been Provided? Yes Information not available 02/09/2024 On What Date Was Tobacco Cessation Counseling Provided? 08/22/2024 Information not available 08/22/2024 Do You Or Have You Ever Used Any Other Forms Of Tobacco Or Nicotine? No Information not available 02/10/2024 Sex: Female Functional Status Question Answer Note LastModified by Organization D etails LastModified Time Are you able to care for yourself? Yes Information n ot available 02/09/2024 What is your exercise level? None Information not available 02/10/2024 Mental Status None recorded. Family History Relationship Description Onset Age of this Age Resolved Age Notes LastModified by Organization Details LastModified Time Mother Hypertensive disorder [email or web address] Not available 2023 15:22:10 Mother Hypercholest erolemia [email or web address] Not available 2023 15:23:07 Mother Kidney disease [email or web address] Not available 2023 15:23:35 Mother Depressive disorder tcarterma Not available 2023 16:19:48 Father Hypertensive disorder tcarterma Not available 2023 15:22:10 Medical History Condition Response Coronary Artery Disease N Other N Atrial Fibrillation N High Blood Pressure Y Depression Y COPD N Blood Clots N Anxiety Disorder Y Muscle, Joint, or Bone Problems Y Acid Reflux (GERD) Y Cancer N Stroke N Headaches N Kidney or Bladder Problems Y Have you had a mammogram in the last yea r? N Skin Problems N Asthma N Allergies Y Hepatitis N High Cholesterol N Liver Disease N Thyroid Problems Y GI Problems N Anemia N Heart Attack (TN) N Diabetes Y Seizures/Epilepsy N Heart Failure N Osteoporosis Y Gynecological History Statement/Question Response Menses Monthly N Current Control Method Other Obstetrics History GPAL:G 0 P 0 0 0 0 Immunizations Vaccine Type Date Status Note Provider Cabrera miramontes and Address Organization Details Recorded Time COVID-19, mRNA, LNP-S, PF, 100 mcg/0.5mL dose or 50 mcg/0.25mL dose 09/30/2021 completed Eleuterio El [place], [place] [facility] 07/27/2024 10:42:38 COVID-19, mRNA, LNP-S, PF, 100 mcg/0.5mL dose or 50 mcg/0.25mL dose 02/01/2021 completed Eleuterio [place], [place] [facility] 07/27/2024 10:42:39 COVID-19, mRNA, LNP-S, PF, 100 mcg/0.5mL dose or 50 mcg/0.25mL dose 03/01/2021 completed Eleuterio [place] [facility] 07/27/2024 10:42:39 Influenza, high-dose, trivalent, PF 08/24/2024 completed CLAUDIA Morris Attn: Accounting[address] [place], [address], [place] [facility] 09/08/2024 21:45:40 Past Encounters Encounter ID Performer Location Encounter Start Date Encounter Closed Date Diagnosis/Indication Diagnosis SNOMED-CT Code Diagnosis ICD10 Code Diagnosis Note [id number] CLAUDIA Morris [facility] [address] [place] [address] 02/10/2024 14:53:17 02/10/2024 15:49:24 Body mass index 25-29 - overweight 714739343 Z68.26 BMI is 26.6 Hypothyroidism 53170826 E03.9 Patient is taking levothyrox ine 75 mcg daily and due for updated thyroid function panel. Hyperlipidemia 26792764 E78.5 Patient is taking rosuvastat in 10 mg daily and due for fasting lipid panel Gastroesop hageal reflux disease 968988487 K21.9 Patient is stable on pantoprazo le 40 mg twice daily she is however still due for the EGD scope that has been ordered on 2 previous occasions. Long-term drug therapy 243956046 Z79.899 Routine hepatic panel, metabolic panel and vitamin B12 and folate are due Iron defic iency anemia 09662376 D50.9 Patient has a history of iron deficiency anemia that has been discussed on several prior visits including at the old primary care location. She has had an EGD and colonoscop y ordered on 2 previous occasions and has not followed through to complete them. These will be ordered again for the 3rd time including updated iron studies and CBC. Well contr olled type 2 diabetes mellitus 664492468 E11.9 Patient is stable on metformin therapy 500 mg twice daily, and dietary management . She is due for updated hemoglobin A1c and annual microalbum in test of the urine. Screening mammography 24 410157 Z12.31 Annual mammogram is due Osteoporosis 99273331 M8 1.0 Routine DEXA scan is due for follow-up on osteoporos is status Benign ess ential hypertension 2490306 I10 Blood pressure is 110/80 today and stable on losartan hydrochlor othiazide and metoprolol combinatio n. Positive s creening for depression on PHQ-9 (Patient Health Questionnaire 9) 0785879863 53717 Z13.31 Patient scored a 6 on screening today. She is on more medication s from a specialist that she sees routinely and discusses her mental health management [id number] CLAUDIA Morris [facility] [address] [place] [address] 08/22/2024 15:21:58 08/22/2024 16:21:00 Body mass index 25-29 - overweight 599639694 Z68.26 BMI is 26.6 Overweight 832693427 E66 .3 Well contr olled type 2 diabetes mellitus 221488118 E11.9 Patient is stable on metformin therapy 500 mg twice daily, and dietary management . She is due for updated hemoglobin A1c. Last A1c was 6.4%. Patient is interested in starting injectable therapy start ozempic therapy. no personal or fam hx of medullary thyroid cancer or NE or MEN tumors. Benign ess ential hypertension 5839227 I10 Blood pressure is stable.Pat ient is taking losartan hydrochlor othiazide 100/25 mg daily and metoprolol succinate ER 50 mg half a tablet daily Hypothyroidism 18514085 E03.9 Patient is taking levothyrox ine 75 mcg daily and due for updated thyroid function panel. Hyperlipidemia 83697304 E78.5 Patient is taking rosuvastat in 10 mg daily and due for fasting lipid panel Iron defic iency anemia 29726656 D50.9 Patient has a history of iron deficiency anemia that has been discussed on several prior visits including at the old primary care location. She has completed GI scopes and we will have to call for results as they are not sent yet. Due for updated CBC and iron studies Osteoporosis 14985540 M8 1.0 Routine DEXA scan is due for follow-up on osteoporos is status Long-term drug therapy 673128532 Z79.899 Routine hepatic panel, metabolic panel and vitamin B12 and folate are due Administra tion of influenza vaccine 54639145 Z23 Flu shot given today Gastroesop hageal reflux disease without esophagitis 120233907 K21.9 stable on PPI therapy Health Concerns Section Related Observation LastModified by Organization Detai ls LastModified Time None Recorded Concern Status LastModified by Organization Details LastModified Time None Recorded Advance Directives Directive N: Payers Encounter Date Sequence Insurance Name Policy Number Policy Bernstein Covered Member ID Bernstein Member ID Guarantor Name 02/10/2024 1 [facility] (MEDICARE REPLACEMENT/A DVANTAGE - HMO) [id number] Blanca Laura [id number] Blanca Laura 08/22/2024 1 [facility] (MEDICARE REPLACEMENT/A DVANTAGE - HMO) [id number] Blanca Laura [id number] Blanca Laura Notes Date Note Type Note Provider Name and Address Organization Details Recorded Time 024 text/ht ml AnemiaReported bypatient.Notes:Patient has a history of iron deficiency anemia in which GI workup including upper and lower scopes has been ordered on 2 previous occasions but she has yet to complete them. She has no gross blood loss noted in stools.Anxiety/DepressionReported bypatient.Notes:Patient is following with a psychiatrist and is taking Vraylar 3 mg daily, trazodone 100 mg 2 tablets at night, Wellbutrin XL 150 mg daily and duloxetine 60 mg daily. Patient reports she is stable on regimen.DiabetesReported bypatient.Notes:Patient has been well controlled with metformin 500 mg twice a day and dietary modifications. No new complaintsHyperlipidemiaReported bypatient.Notes:Patient is taking rosuvastatin 10 mg daily and is due for updated fasting labsHypertensionReported bypatient.Notes:Patient is taking losartan hydrochlorothiazide 100/25 mg daily. She is also taking metoprolol succinate ER 50 mg half a tablet dailyReflux/GERDReported bypatient.Notes:Patient is taking pantoprazole 40 mg twice daily with history of reflux. Her symptoms are controlled.ThyroidReported bypatient.Notes:Patient is taking levothyroxine 75 mcg daily, is stable and due for updated labs. Osteoporosis history-patient is due for DEXA scan. CLAUDIA Morris Attn: Accounting, [address] [place], [address], [facility] 02/18/2024 12:56:26 025 text/ht ml AnemiaReported bypatient.Notes:Patient has a history of iron deficiency anemia in which GI workup including upper and lower scopes has been ordered on 2 previous occasions but she has yet to complete them. She has no gross blood loss noted in stools.Anxiety/DepressionReported bypatient.Notes:Patient is following with a psychiatrist and is taking Vraylar 3 mg daily, trazodone 100 mg 2 tablets at night, Wellbutrin XL 150 mg daily and duloxetine 60 mg daily. Patient reports she is stable on regimen.DiabetesReported bypatient.Notes:Patient has been well controlled with metformin 500 mg twice a day and dietary modifications. No new complaintsHyperlipidemiaReported bypatient.Notes:Patient is taking rosuvastatin 10 mg daily and is due for updated fasting labsHypertensionReported bypatient.Notes:Patient is taking losartan hydrochlorothiazide 100/25 mg daily. She is also taking metoprolol succinate ER 50 mg half a tablet dailyReflux/GERDReported bypatient.Notes:Patient is taking pantoprazole 40 mg twice daily with history of reflux. Her symptoms are controlled.ThyroidReported bypatient.Notes:Patient is taking levothyroxine 75 mcg daily, is stable and due for updated labs. Osteoporosis history-patient is due for DEXA scan. CLAUDIA Morris Attn: Accounting, [address] [place], [address], [place] [facility] 09/08/2024 21:51:45 OBGyn Episode No OBEpisode recorded.
--- OUTSIDE RECORDS SUMMARY | 2024-09-23 11:37 | XMS_ITS | Referral Summary ---
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 Name Role Phone Melanie Lerner Primary Care Pr ovider Allergies Active Allergy Reactions Criticality Noted Date Comments Bacitracin Unknown 05/16/2020 Latex Unknown 05/16/2020 Efzsdvfr-Htmlfdlqir-Ifqtbbzop Other (See comments) Low 05/16/2020 Reaction: Active Problems Problem Noted Date Diagnosed Date Hyperparathyroidism 12/27/2009 Rhinitis 12/05/2009 Nontoxic single thyroid nodule 12/05/2009 Social History Tobacco Use Types Packs/Day Years Used Date Smoking Tobacco: Never Assessed Comments Unknown Sex and Gender Information Value Date Recorded Sex Assigned at Not on file 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
--- OUTSIDE RECORDS SUMMARY | 2024-09-23 11:37 | XMS_ITS | Continuity of Care Document ---
Author Organization [facility] Address [address] [place] [address] Phone Care Team Providers Care Technical Support Analyst Name Role Phone Eve Milner Unavailable Unavailable Advance Directives Directive Yes / No Effective Date File Name No Information Encounters Encounter Description Practice Location Reason(s) For Visit Diagnoses Date Provider Providers Copied on Encounter [facility], [address], [place], [place], [id number], [place] tel:[phone] [facility] No Information [phone] Annia Prado. [address] , [address], [place], [address], [place]. tel:[phone] Family History Family Member Type Diagnosis Age At Onset No Information Payers Payer name Insurance type Covered alliance party ID Authoriza tion(s) No Information Social History [...]
--- OUTSIDE RECORDS SUMMARY | 2024-09-23 11:37 | XMS_ITS ---
Author Organization [facility] Address [facility] [facility] [address] [facility] [address] [place] [address] Care Team Providers Care Low Vision Therapist Name Role Phone LivelucretiaKarla quintana Unavailable [phone] Medications Medication SIG (Take, Route, Frequency, Duration) Notes Start Date End Date Status Vraylar 3 MG 1 capsule Orally Once a day for 30 days 02/19/2024 Active Social History Sex Assigned At : Social History Observation Description Sex Assigned At Female Encounters Encounter Location Date Provider Diagnosis [facility] [address] [facility] [address] [place] [address] 02/19/2024 Karla Cardona Plan Of Treatment Medication Medication Name Sig Start Date Stop Date Notes Vraylar 3 MG 1 capsule Orally Once a day for 30 days 02/18 Next Appt Details Provider Name:Renae vance, 10/05/2024 02:15:00 PM, [address], [facility] [address], [place], [address], Progress Notes * AYDEE LOVELACEDOB: (68 yo F)Acc No.[id number]:02/19/2024 Patient: AYDEE LEZAMA :1955 A ge:68 Y S ex:Female Address:[address] [place], [address] * Refills Start Vraylar Capsule, 3 MG, Orally, 30, 1 capsule, Once a day, 30 days Subjective: * Chief Complaints: * * Medical History: * Surgical History: * Hospitalization/Major Diagno stic Procedure: * Medications: Objective: * Vitals: * Physical Examination: Assessment: Plan: * Treatment: * Procedure Codes: * true * Date: Generated for Roberto butler/Trevon/Donna on: 0 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
--- OUTSIDE RECORDS SUMMARY | 2024-09-23 11:37 | XMS_ITS | Clinical Summary ---
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 Surgical History Surgery Date Site/Laterality Comments [place] TOTAL ABDOMINAL HYSTERECT W/WO RMVL TUBE OVARY Hysterectomy - (Added by TW Conv) MO CHOLECYSTECTOMY Cholecystectomy - (Added by TW Conv) KNEE SURGERY Knee Surgery - (Added by TW Conv) [place] ABDOMINO-VAG VESICAL NCK SSP W/WO NDSC CTRL Abdomino-Vaginal Vesical Neck Suspension - (Added by TW Conv) [place] OPEN IMPLANTATION DELMAR SAC RAL NERVE Install Sacral Nerve Neurostimulator By Incision - (Added by TW Conv) [place] PARATHYROIDECTOMY/EXPLORA TION PARATHYROIDS Parathyroid Resection Single Tumor Removal - (Added by TW Conv) Medical History Medical History Date Comments Personal history of other di seases of the circulatory system History of hypertension - (A dded by TW Conv) Personal history of other di seases of the nervous system and sense organs History of migrain e headaches - (Added by TW Conv) Personal history of other di seases of the digestive system History of esophageal reflux - (Added by TW Conv) Personal history of other en docrine, nutritional and metabolic disease History of hyperchol esterolemia - (Added by TW Conv) Personal history of other di seases of the musculoskeletal system and connective tissue History of osteopenia - (Add ed by CLARA Boateng) Social History Tobacco Use Types Packs/Day Years Used Date Smoking Tobacco: Never Assessed Comments Unknown Sex and Gender Information Value Date Recorded Sex Assigned at Not on file 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
--- OUTSIDE RECORDS SUMMARY | 2024-09-23 11:38 | XMS_ITS | Data Portability ---
Author Organization [facility], Main Office Address [address] [place] [address] Assessment No assessment recorded. Plan of Treatment Reminders Order Date Submit Date Provider Last Modified By Organization Details Last Modified Time Details Appointments None recorded. Lab HbA1c (hemoglobin A1c), blood 2022 023 [facility] (Lab), [address] [place] [address], [address], 3 15:33:06 hepatic function panel, serum [address] (Lab), [address] [place] [address], [address], 3 17:13:38 BMP, serum or plasma [address] (Lab), [address] [place] [address], [address], 3 17:13:39 lipid panel, serum [address] (Lab), [address] [place] [address], [address], 3 17:13:39 T4, free, serum [address] (Lab), [address] [place] [address], [address], 3 17:13:39 TSH, serum or plasma [address] (Lab), [address] [place] [address], [place], [address], 3 17:13:39 iron + TIBC + ferritin, serum [address] (Lab), [address] [place] [address] [address], [place], [address], 3 17:13:39 CBC w/ auto diff [address] (Lab), [address] [place] [address] [address], [place], [address], 3 17:13:39 HbA1c (hemoglobin A1c), blood [address] (Lab), [address] [place] [address], [place], [address], 3 15:44:25 hepatic function panel, serum [address] (Lab), [address] [place] [address] [address], [place], [address], 3 15:42:46 BMP, serum or plasma [address] (Lab), [address] [place] [address], [place], [address], 3 15:42:59 lipid panel, serum [address] (Lab), [address] [place] [address] [address], [place], [address], 3 15:43:40 T4, free, serum [address] (Lab), [address] [place] [address] [place], [address], 3 15:43:53 TSH, serum or plasma [address] (Lab), [address] [place] [address], [place], [address], 3 15:44:06 iron + TIBC + ferritin, serum [address] (Lab), [facility] [address], [place], [address], 3 15:43:15 CBC w/ auto diff [address] (Lab), [facility] [address], [place], [address], 3 15:43:27 Referral None recorded. Procedures upper endoscopy (EGD) with diagnostic colonoscopy (PROC) 2022 023 SUNIL Stanley MD, [address] [facility] [address], [address], [place], [address], 3 05:01:33 Surgeries None recorded. Imaging CT, neck, soft tissue, w/ contrast [email or web address] [place] [address] Imaging Center, [address] [place] [address], [place], [address], 4 10:09:45 MAMMO, screening, digital, bilateral 2022 023 [facility] Imaging, [address], [address], [place], [address], 3 11:59:58 CT, neck, soft tissue, w/ contrast [address] Imaging Center, [facility]0 [facility] [address], [place], [address], 3 15:44:49 Medication Orders None recorded. Patient TargetsNo targets recorded. Patient InstructionsNo instructions recorded. Reason for Referral None Reported. Results Created Date Observation Date Name Description Value Unit Range Abnormal Flag Note LastModifiedBy Organization Detail LastModifiedTime 10/06/07/2021 MAMMO , scree claudia, digit al, bilat eral No observ ation record ed. MIGRATION.[address] [place] [address] Imaging 2022 [address], [place], [address], 10/08/2022 01:00:03 06/19/2005/31/2021 XR, cervi andrew spine No observ ation record ed. MIGRATION. [address] [place] [address] (Imaging) [address] [place] [address] Rte [facility], [place], [address], 10/08/2022 01:00:03 07/23/2005/31/2021 XR, cervi andrew spine No observ ation record ed. MIGRATION. [address] [place] [address], [place], [address], 10/08/2022 01:00:03 11/12/19 23 10/29/2022 XR, lumba r spine No observ ation record ed. [email or web address] [address], [place], [address], 11/12/2022 14:13:57 11/12/1910/29/2022 XR, cervi andrew spine No observ ation record ed. [address] [address], [place], [address], 11/12/2022 14:13:24 05/08/20 23 04/07/2023 MAMMO , scree claudia, digit al, bilat eral No observ ation record ed. [address] Imaging 2022 [address], [place], [address], 05/11/2023 16:51:31 Result Notes None recorded. Problems Name Problem SNOMED Code Status Onset Date Resolution Date Notes Provider Name and Address Organization Details Recorded Time Iron deficiency anemia 46752932 Active 2022 CLAUDIA Morris [facility] Maris Michel, [address], [place], [address] , [place] [facility] [employer] [facility] 3 15:49:50 Acid reflux 571716861 Active 2022 CLAUDIA Morris [address] [facility], [facility] [address], [place], [address] , [facility] [employer] [facility] 3 15:50:20 Anterior cervical lymphadenopat hy 045622536 Active 2022 CLAUDIA Morris [address] [facility], [facility] [address], [place], [address] , [facility] Hitch [facility] [employer] [facility] 3 15:54:19 Benign essential hypertension 4736224 Active 2018 Not Available [facility] 3 00:50:00 Insomnia 624544392 Active 2018 Not Available [facility] 3 00:50:00 Generalized anxiety disorder 37013038 Active 2018 Not Available [facility] 3 00:50:01 Gastroesophag eal reflux disease 800513345 Active 2018 Not Available [facility] 3 00:50:01 Anemia 131621958 Active 2021 Not Available [facility] 3 00:50:01 Enthesopathy of hip region 31839095 Active Not Available [facility] 3 00:50:01 Hypothyroidis m 13380769 Active 2018 Not Available [facility] 3 00:50:01 History of clinical finding in subject 575541395 Active Not Available [facility] 3 00:50:01 Cough 44257560 Active 2022 Not Available [facility] 3 00:50:01 Hyperlipidemi a 87985382 Active 2018 Not Available [facility] 3 00:50:01 Hyponatremia 46824825 Active 2021 Not Available [facility] 3 00:50:01 Impaired glucose tolerance 9069125 Active 2018 Not Available [facility] 3 00:50:02 Problem Notes None recorded. Procedures Surgical History Date Name Laterality Status Provider Name and Address Organization Details Recorded Time 12/31/19 16 Most Recent Bone Density completed Not Available [facility] 10/08/2022 00:43:26 12/26/19 16 Most Recent Mammogram completed Not Available [facility] 10/08/2022 00:43:26 10/18/19 16 Date of Last Colonoscopy completed Not Available [facility] 10/08/2022 00:43:26 09/30/19 12 Date of Last Pap Smear completed Not Available 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 10/09/19 00:43:36 08/10/18 95 LABORATORY TECHNICIAN Surgery completed Not Available [facility] 10/09/19 00:43:36 Thyroid Surgery completed Not Available [facility] 10/08/2022 00:43:36 Imaging Results Imaging Date Name Status LastModified by Organiz ation Details LastModified Time 05/31/2021 XR, cervical spine completed [id number] [facility] (Imaging) [address] [place] [address], [address], 10/08/2022 01:00:03 06/07/2021 MAMMO, screening, digital, bilateral completed [id number] [facility] [address], [place], [address], 10/08/2022 01:00:03 05/31/2021 XR, cervical spine completed [id number], [address], 10/08/2022 01:00:03 10/29/2022 XR, lumbar spine completed [email or web address], [address], 11/12/2022 14:13:57 10/29/2022 XR, cervical spine completed [email or web address] [address], [address], 11/12/2022 14:13:24 04/07/2023 MAMMO, screening, digital, bilateral completed [email or web address], [place], [address], 05/11/2023 16:51:31 Procedure Notes None recorded. Medical Equipment None Reported. Allergies Allergen ID Allergen Name Allergen Category Reaction Reaction Severity Criticality Documentation Date Start Date Code Code System Note Provider Name and Address Organization Details Recorded Time 1067 Vibramyci n medicatio n Not available Not available Not available 10/08/2022 82860 5 RxNorm Not Available [facility] 3 00:59:31 1068 Veramyst medicatio n Not available Not available Not available 10/08/2022 37720 5 RxNorm Not Available [facility] 3 00:59:31 1069 bacitraci n / neomycin / polymyxin B medicatio n Not available Not available Not available 10/08/2022 03259 9 RxNorm Not Available [facility] 3 00:59:31 1070 latex environme nt,medica tion Not available Not available Not available 10/08/2022 02413 91 RxNorm Not Available [facility] 3 00:59:31 1071 codeine medicatio n Not available Not available Not available 10/08/2022 2670 RxNorm Not Available [facility] 3 00:59:31 Medications Name Sig Start Date Stop Date Status Note LastModified by Organization Details LastModified Time quetiapine 25 mg tablet TAKE 1 TABLET BY MOUTH EVERY DAY AT BEDTIME active Not Available Not Available No t Available celecoxib 200 mg capsule TK 1 C PO BID 02/09 completed Not Available Not Available Not Available cyclobenzap rine 10 mg tablet TAKE 1 TABLET BY MOUTH THREE TIMES DAILY NEEDED active Not Available Not Available No t Available dicloxacill in 500 mg capsule 07/27 completed Not Available Not Available Not Available methocarbam ol 500 mg tablet TAKE 1 TABLET BY MOUTH EVERY 8 TO 12 HOURS 04/03 completed Not Available Not Available Not Available buspirone 5 mg tablet TAKE 1 TABLET BY MOUTH TWICE DAILY active Not Available Not Available No t Available metformin 500 mg tablet TAKE 1 TABLET BY MOUTH TWICE DAILY WITH THE MORNING AND EVENING MEAL active Not Available Not Available No t Available bupropion HCl SR 150 mg tablet,12 hr sustained-r elease TK 1 T PO QD IN THE MORNING 09/06 completed Not Available Not Available Not Available prednisone 10 mg tablet active Not Available Not Available Not Available doxycycline hyclate 100 mg capsule TK 1 C PO BID 02/17 completed Not Available Not Available Not Available quetiapine 300 mg tablet 07/27 completed Not Available Not Available Not Available trazodone 50 mg tablet TAKE 4 TABLETS BY MOUTH EVERY NIGHT AT BEDTIME 07/02 completed Not Available Not Available Not Available azithromyci n 250 mg tablet 11/03 completed Not Available Not Available Not Available alprazolam 1 mg tablet TAKE 1/2 TABLET PO IN THE MORNING AND 1 TABLET AT NOON AND 1 TABLET AT BEDTIME QD FOR 2 WEEKS 02/17 completed Not Available Not Available Not Available metoprolol succinate ER 50 mg tablet,exte nded release 24 hr TAKE 1/2 TABLET BY MOUTH DAILY 2022 active Not Available Not Available Not Avai lable Nystop 100,000 unit/gram topical powder 07/27 completed Not Available Not Available Not Available ondansetron HCl 8 mg tablet TAKE 1 TABLET BY MOUTH EVERY 8 TO 12 HOURS NEEDED FOR NAUSEA active Not Available Not Available No t Available meloxicam 15 mg tablet TAKE 1 TABLET BY MOUTH TWICE DAILY NEEDED active Not Available Not Available No t Available prednisone 20 mg tablet TAKE 2 TABLETS BY MOUTH DAILY FOR 3 DAYS THEN TAKE 1 TABLET BY MOUTH DAILY FOR 3 DAYS 11/03 completed Not Available Not Available Not Available quetiapine 200 mg tablet 02/09 completed Not Available Not Available Not Available niacin ER 500 mg tablet,exte nded release 24 hr 07/27 completed Not Available Not Available Not Available sumatriptan 5 mg/actuatio n nasal spray 02/09 completed Not Available Not Available Not Available topiramate 25 mg tablet TK 1 T PO ONCE D 07/27 completed Not Available Not Available Not Available amlodipine 5 mg tablet active Not Available Not Available Not Available hydrocodone 10 mg-acetamin ophen 325 mg tablet TAKE ONE TABLET BY MOUTH THREE TIMES DAILY NEEDED. active Not Available Not Available No t Available peg-electro lyte solution 420 gram oral solution active Not Available Not Available Not Available quetiapine 100 mg tablet TAKE 1/2 TABLET BY MOUTH EVERY NIGHT AT BEDTIME 04/29 completed Not Available Not Available Not Available triamcinolo ne acetonide 0.1 % topical cream APPLY TOPICALLY A THIN LAYER TO AFFECTED AREA BID PRN active Not Available Not Available No t Available acyclovir 800 mg tablet 07/27 completed Not Available Not Available Not Available baclofen 20 mg tablet TK 1 T PO Q 6 TO 8 H PRN 09/06 completed Not Available Not Available Not Available levothyroxi ne 75 mcg tablet TAKE 1 TABLET BY MOUTH EVERY DAY 2022 active Not Available Not Available Not Avai lable losartan 100 mg-hydrochl orothiazide 25 mg tablet TAKE 1/2 TABLET BY MOUTH EVERY DAY active Not Available Not Available No t Available oxycodone-a cetaminophe n 5 mg-325 mg tablet active Not Available Not Available No t Available alprazolam 0.5 mg tablet TK 1 T PO QD FOR 15 DAYS 02/17 completed Not Available Not Available Not Available estradiol 1 mg tablet TAKE 1 TABLET BY MOUTH DAILY active Not Available Not Available No t Available trazodone 100 mg tablet TAKE 2 TABLETS BY MOUTH EVERY DAY AT BEDTIME active Not Available Not Available No t Available amlodipine 10 mg tablet active Not Available Not Available Not Available hydrocortis one 1 % topical cream NGHIA EXT AA Q 12 H active Not Available Not Available No t Available cephalexin 500 mg capsule TK ONE C PO TID 02/17 completed Not Available Not Available Not Available paroxetine 20 mg tablet TK 1 T PO QAM 02/17 completed Not Available Not Available Not Available pantoprazol e 40 mg tablet,richie yed release TAKE 1 TABLET BY MOUTH TWICE DAILY active Not Available Not Available No t Available oseltamivir 75 mg capsule Take 1 capsule every day by oral route for 10 days. 11/03 completed Not Available Not Available Not Available esomeprazol e magnesium 40 mg capsule,del ayed release TK 1 C PO BID 02/17 completed Not Available Not Available Not Available nitrofurant oin macrocrysta l 100 mg capsule TAKE 1 CAPSULE BY MOUTH EVERY 12 HOURS WITH FOOD FOR 7 DAYS 04/29 completed Not Available Not Available Not Available buspirone 10 mg tablet TK 1 T PO TID FOR 30 DAYS 02/09 completed Not Available Not Available Not Available valsartan 320 mg tablet active Not Available Not Available Not Available gabapentin 300 mg capsule 12/18 /2017 completed Not Available Not Available Not Available folic acid 1 mg tablet active Not Available Not Available Not Available codeine 10 mg-guaifene sin 100 mg/5 mL oral liquid TAKE 10 ML BY MOUTH EVERY 6 TO 8 HOURS NEEDED FOR COUGHING 11/03 completed Not Available Not Available Not Available acyclovir 200 mg capsule TK ONE C PO BID. active Not Available Not Available No t Available mupirocin 2 % topical ointment 02/09 completed Not Available Not Available Not Available ibuprofen 600 mg tablet active Not Available Not Available Not Available cefuroxime axetil 500 mg tablet active Not Available Not Available No t Available fentanyl 25 mcg/hr transdermal patch 07/27 completed Not Available Not Available Not Available levofloxaci n 500 mg tablet active Not Available Not Available Not Available methylpredn isolone 4 mg tablets in a dose pack Take 1 package by oral route as directed. 07/27 completed Not Available Not Available Not Available albuterol sulfate HFA 90 mcg/actuati on aerosol inhaler INHALE 2 PUFFS BY MOUTH FOUR TIMES DAILY NEEDED FOR SHORTNESS OF BREATH OR WHEEZING active Not Available Not Available No t Available losartan 50 mg-hydrochl orothiazide 12.5 mg tablet TK 1 T PO QD 10/23 completed Not Available Not Available Not Available lisinopril 40 mg tablet active Not Available Not Available Not Available doxycycline hyclate 100 mg tablet TAKE 1 TABLET BY MOUTH TWICE DAILY FOR 7 DAYS 11/03 completed Not Available Not Available Not Available phentermine 37.5 mg capsule active Not Available Not Available Not Available amoxicillin 875 mg-potassiu m clavulanate 125 mg tablet TK 1 T PO Q 12 H active Not Available Not Available No t Available buspirone 15 mg tablet TAKE 1 TABLET BY MOUTH TWICE DAILY 04/29 completed Not Available Not Available Not Available Bactrim DS 800 mg-160 mg tablet Take 1 tablet every 12 hours by oral route. 06/17 completed Not Available Not Available Not Available bupropion HCl SR 200 mg tablet,12 hr sustained-r elease TAKE 1 TABLET BY MOUTH EVERY DAY IN THE MORNING 10/29 completed Not Available Not Available Not Available Ciprodex 0.3 %-0.1 % ear drops,suspe nsion 07/27 completed Not Available Not Available Not Available rosuvastati n 10 mg tablet TAKE 1 TABLET BY MOUTH EVERY DAY 2023 active Not Available Not Available Not Avai lable bupropion HCl XL 300 mg 24 hr tablet, extended release TAKE 1 TABLET BY MOUTH EVERY DAY IN THE MORNING 04/29 completed Not Available Not Available Not Available bupropion HCl XL 150 mg 24 hr tablet, extended release TAKE 1 TABLET BY MOUTH EVERY DAY active Not Available Not Available No t Available duloxetine 30 mg capsule,del ayed release TK 1 C PO QD HS 02/17 completed Not Available Not Available Not Available duloxetine 60 mg capsule,del ayed release TAKE 1 CAPSULE BY MOUTH EVERY DAY active Not Available Not Available No t Available aspirin 2018 active Not Available Not Available Not Avai lable estradiol 07/13 completed Not Available Not Available Not Available [facility] with Large Mask USE DIRECTED active Not Available Not Available No t Available Linzess 290 mcg capsule Take 1 capsule every day by oral route. active Not Available Not Available No t Available Stimulant Laxative Plus 8.6 mg-50 mg tablet TAKE 1-2 TABLETS BY MOUTH DAILY NEEDED active Not Available Not Available No t Available Belsomra 10 mg tablet TK 1 T PO QHS FOR 10 DAYS 07/27 completed Not Available Not Available Not Available Vraylar 1.5 mg capsule TAKE 1 CAPSULE BY MOUTH EVERY DAY 04/29 completed Not Available Not Available Not Available Vraylar 3 mg capsule TAKE 1 CAPSULE BY MOUTH EVERY DAY active Not Available Not Available No t Available bupropion HCl 150 mg tablet,12 hr sustained-r elease(smok ing deterrent) Take 1 tablet twice a day by oral route. 07/13 completed Not Available Not Available Not Available Relistor 150 mg tablet TAKE 1 TO 3 TABLETS BY MOUTH EVERY DAY active Not Available Not Available No t Available [employer] COVID-19 Ag Self Test kit TEST DIRECTED TODAY 04/29 completed Not Available Not Available Not Available Vitals Date Recorded Body mass index (BMI) Body mass index (BMI) Body mass index (BMI) Body height Body height Body height Oxygen saturation Oxygen saturation in Arterial blood by Pulse oximetry Oxygen saturation Oxygen saturation in Arterial blood by Pulse oximetry Oxygen saturation Oxygen saturation in Arterial blood by Pulse oximetry Heart rate Heart rate Heart rate Respiratory rate Body temperature Body temperature Body temperature Body weight Body weight Body weight Systolic blood pressure Diastolic blood pressure Systolic blood pressure Diastolic blood pressure Systolic blood pressure Diastolic blood pressure Systolic blood pressure Diastolic blood pressure Provider Name and Address Organization Details Last Updated DateTime 3 22.2 kg/m2 21.9 kg/m2 23.1 kg/m2 175.26 cm 175.26 cm 175.26 cm 95 % 95 % 96 % 96 % 93 % 93 % 87 /min 72 /min 78 /min 16 /min 97.3 [degF] 97.3 [degF] 97.3 [degF] 33990.2 9 g 92845.6 7 g 78454.5 7 g 120 mm[Hg] 80 mm[Hg] 122 mm[Hg] 80 mm[Hg] 112 mm[Hg] 70 mm[Hg] 122 mm[Hg] 78 mm[Hg] Not Available [facility] 3 00:45:23 Date Recorded Body height Body temperature Body mass index (BMI) Body weight Heart rate Oxygen saturation Oxygen saturation in Arterial blood by Pulse oximetry Systolic blood pressure Diastolic blood pressure Provider Name and Address Organization Details Last Updated DateTime 3 175.26 cm 96.8 [degF] 24.8 kg/m2 14416.5 2 g 82 /min 97 % 97 % 112 mm[Hg] 78 mm[Hg] Mini Guthrie RN [facility] [employer] 3 15:29:53 Date Recorded Body height Body temperature Heart rate Oxygen saturation Oxygen saturation in Arterial blood by Pulse oximetry Systolic blood pressure Diastolic blood pressure Provider Name and Address Organization Details Last Updated DateTime 3 175.26 cm 97.6 [degF] 72 /min 98 % 98 % 132 mm[Hg] 78 mm[Hg] Mini Guthrie RN [place] [facility] 3 14:44:32 Date Recorded Systolic blood pressure Diastolic blood pressure Provider Name and Address Organization Details Last Updated DateTime 05/07/2023 120 mm[Hg] 80 mm[Hg] CLAUDIA Morris [address] [facility], [address] [place] [address], [place], [address], [facility] [employer] [facility] 05/07/2023 15:01:02 Social History Question Answer Notes LastModified by Organizat ion Details LastModified Time Tobacco Smoking Status Current Some Day Smoker social Not Available [facility] 10/08/2022 00:41:46 Do You Have An Advance Directive? No [id number] Information not available 10/08/2022 What Is Your Level Of Alcohol Consumption? Occasional [id number] Information not available 10/08/2022 Are You Blind Or Do You Have Difficulty Seeing? No [id number] Information not available 10/08/2022 What Is Your Level Of Caffeine Consumption? Moderate [id number] Information not available 10/08/2022 In The 14 Days Before Symptom Onset, Have You Had Close Contact With A Laboratory-confir med COVID-19 While That Case Was Ill? No [id number] Information not available 10/08/2022 In The 14 Days Before Symptom Onset, Have You Had Close Contact With A Person Who Is Under Investigation For COVID-19 While That Person Was Ill? No [id number] Information not available 10/08/2022 Are You Currently Employed? No [email or web address] Information not available 11/03/2022 Are You Deaf Or Do You Have Serious Difficulty Hearing? No [id number] Information not available 10/08/2022 What Type Of Diet Are You Following? REGULAR [id number] Information not available 10/08/2022 Which Illicit Or Recreational Drugs Have You Used? Marijuana Medical Card [id number] Information not available 10/08/2022 Do You Or Have You Ever Used E-cigarettes Or Vape? Current User Of Electronic Cigarettes Vaping Current [id number] Information not available 10/08/2022 What Is Your Occupation? Disability [id number] Information not available 10/08/2022 Have There Been Any Changes To Your Family Or Social Situation? No [id number] Information not available 10/08/2022 Do You Use Insect Repellent Routinely? No [id number] Information not available 10/08/2022 Do You Have A Medical Power Of Program Admin? No [id number] Information not available 10/08/2022 What Was The Date Of Your Most Recent Tobacco Screening? 10/29/2021 [id number] Information not available 10/08/2022 Do You Have Any Pets? Yes [id number] Information not available 10/08/2022 What Is Your Relationship Status? [id number] Information not available 10/08/2022 Do You Use Your Seat Belt Or Car Seat Routinely? Yes [id number] Information not available 10/08/2022 Do You Have Smoke And Carbon Monoxide Detectors In Your Home? Yes [id number] Information not available 10/08/2022 Are You Passively Exposed To Smoke? Yes [id number] Information not available 10/08/2022 Are There Any Smokers In Your House? Yes [id number] Information not available 10/08/2022 How Much Tobacco Do You Smoke? 1 PPW [id number] Information not available 10/08/2022 Do You Feel Stressed (tense, Restless, Nervous, Or Anxious, Or Unable To Sleep At Night)? [id number] MIGRATION.79861 [id number] Information not available 10/08/2022 Do You Use Any Illicit Or Recreational Drugs? Yes MIGRATION.57060 33183 Information not available 10/08/2022 Do You Use Sunscreen Routinely? Yes MIGRATION.10712 [id number] Information not available 10/08/2022 Have You Recently Traveled Abroad? No MIGRATION.71222 05381 Information not available 10/08/2022 Are You Currently In School? No MIGRATION.17599 97052 Information not available 10/08/2022 Do You Have Any Dietary Restrictions? No MIGRATION.36323 26869 Information not available 10/08/2022 Do You Or Have You Ever Used Any Other Forms Of Tobacco Or Nicotine? Yes MIGRATION.16900 31689 Information not available 10/08/2022 Sex: Unknown Functional Status Question Answer Note LastModified by Organizat ion Details LastModified Time Do you have difficulty walking or climbing stairs? No MIGRATION.[id number] 026 Information not available 10/08/2022 Do you have transportation difficulties? No MIGRATION.[id number] 026 Information not available 10/08/2022 Are you able to walk? YESWOREST MIGRATION.[id number] 026 Information not available 10/08/2022 Do you have difficulty doing errands alone? No MIGRATION.[id number] 026 Information not available 10/08/2022 Are you able to care for yourself? Yes MIGRATION.[id number] 026 Information not available 10/08/2022 Do you have difficulty dressing or bathing? No MIGRATION.[id number] 026 Information not available 10/08/2022 What is your exercise level? Occasional MIGRATION.[id number] 026 Information not available 10/08/2022 Mental Status Question Answer Note LastModified by Organizat ion Details LastModified Time Do you have difficulty concentrating, remembering or making decisions? No MIGRATION.[id number] 6 Information not available 10/08/2022 Family History Relationship Description Onset Age of this Age Resolved Age Notes LastModified by Organization Details LastModified Time Brother Hypertensive disorder MIGRATION.501 [id number] Not available 10/08/2022 00:43:40 Mother Hypertensive disorder MIGRATION.843 [id number] Not available 10/08/2022 00:43:40 Mother Osteoporosis MIGRATION.0 30 [id number] Not available 10/08/2022 00:43:40 Sister Hypertensive disorder MIGRATION.804 [id number] Not available 10/08/2022 00:43:40 Notes:hx of spinal stenosis/ degenerative disc disease/ bulging discs/ VLD Medical History Condition Response DEPRESSION (INCLUDING POST ) Y USE OF BLOOD THINNERS Y HYPERTENSION Y ANXIETY DISORDER Y HIGH CHOLESTEROL / HYPERLIPIDEMIA Y HYPOTHYROIDISM Y MIGRAINES Y ARTHRITIS Y Gynecological History Statement/Question Response Date of Last Mammogram 06/07/2021 Date of Last Colonoscopy 10/18/2015 Most Recent Bone Density 12/31/2015 Date of Last Pap Smear 09/30/2011 Current Control Method Hysterectom y Age at Menarche 14 Most Recent Mammogram 12/26/2015 Obstetrics History GPAL:G 0 P 0 0 0 0 Immunizations Vaccine Type Date Status Note Provider Nam e and Address Organization Details Recorded Time Influenza, split virus, quadrivalent, PF 09/26/2020 completed Not Available [facility] 3 00:59:09 Influenza, split virus, quadrivalent, PF 07/13/2019 completed Not Available [facility] 3 00:59:09 Past Encounters Encounter ID Performer Location Encounter Start Date Encounter Closed Date Diagnosis/Indication Diagnosis SNOMED-CT Code Diagnosis ICD10 Code Diagnosis Note [id number] _[facility]_[place] IGRATION_ DEFAULT_1 _1 , 10/23/2020 00:00:00 10/23/2020 16:25:56 [id number] [facility] [place] [address] [place], JACK[place] [address] 02/05/2021 00:00:00 02/05/2021 19:35:50 [id number] [facility] [place] [address] [place] MORENO, JACKY [address] 04/03/2021 00:00:00 04/04/2021 18:38:21 [id number] [facility] [place] [address] [place]RZEJ MORENO, JACKY [address] 07/02/2021 00:00:00 07/05/2021 22:29:17 [id number] [facility] [place] [address] ANDRZEJ MORENO, JACKY [address] 10/29/2021 00:00:00 10/31/2021 14:01:24 [id number] [facility] [place] [address] ANDRZEJ MORENO, JACKY [address] 04/29/2022 00:00:00 05/07/2022 18:16:58 [id number] CLAUDIA Morris [facility] [place] [address] [place]J MORENO, JACKY [address] 11/04/2022 15:24:16 11/04/2022 16:06:50 Benign essential hypertension 1760374 I10 stable on losartan hctz 100/25mg half daily. Hyponatremia 91098056 E8 7.1 stable on labs. w/u has been completed in recent years. Impaired g lucose tolerance 1571649 R73.03 stable on metformin therapy. a1c due in apr Hypothyroidism 18301144 E03.9 stable on labs, on supplement , repeat labs due in apr Hyperlipidemia 19463255 E78.5 stable on crestor 10mg daily. fasting labs due in apr. Iron defic iency anemia 34453092 D50.9 pt has iron def. anemia and EGD and colonoscop y were ordered twice prior. she has not completed these still Her iron def. anemia continues. she MUST get these completed. Long-term drug therapy 577432250 Z79.899 Screening mammography 24 597503 Z12.31 mammogram due. Acid reflux 275641848 K2 1.9 stable on pantoprazo le 40mg daily. Anterior c ervical lymphadenopathy 168448365 R59.0 right sub-cm anterior retrophary ngeal LAD noted. check ct neck soft tissue w/c. [id number] CLAUDIA Morris S[facility] Andrzej Moreno [address] [place] [address] 05/07/2023 14:39:53 05/07/2023 15:05:51 Benign essential hypertension 3806147 I10 stable on losartan hctz 100/25mg HALF daily. Hyponatremia 35965687 E8 7.1 still to get updated labs. w/u has been completed in recent years. Impaired g lucose tolerance 4054257 R73.03 stable on metformin therapy. a1c due Hypothyroidism 59220639 E03.9 stable on labs, on supplement , repeat labs due Hyperlipidemia 69160209 E78.5 stable on crestor 10mg daily. fasting labs due still. Acid reflux 698011316 K2 1.9 stable on pantoprazo le 40mg daily. Iron defic iency anemia 07348355 D50.9 pt has iron def. anemia and EGD and colonoscop y were ordered twice prior. she has not completed these still Her iron def. anemia continues. she MUST get these completed. she doesn't want us ordering and faxing them yet, until she calls us to do so. Long-term drug therapy 276409655 Z79.899 Anterior c ervical lymphadenopathy 301864175 R59.[address] scan yet: for right 1-2cm anterior retrophary ngeal LAD noted. check ct neck soft tissue w/c. Health Concerns Section Related Observation LastModified by Organization Detai ls LastModified Time None Recorded Concern Status LastModified by Organization Details LastModified Time None Recorded Advance Directives Directive N: Payers Encounter Date Sequence Insurance Name Policy Number Policy Bernstein Covered Member ID Bernstein Member ID Guarantor Name 11/04/2022 1 [facility] [employer] - MEDICARE COMPLETE PLAN 2 (MEDICARE REPLACEMENT HMO) [id number] Blanca Laura [id number] Blanca Laura 05/07/2023 1 [facility] [place] - [facility]ICARE COMPLETE PLAN 2 (MEDICARE REPLACEMENT HMO) [id number] Blanca Laura [id number] Blanca Laura Notes Date Note Type Note Provider Name and Address Organization Details Recorded Time 021 text/h tml Anxiety, Generalized DisorderReported bypatient.Associated Symptoms:no difficulty concentrating; no difficulty controlling worry; no difficulty swallowing; no anxiety; no excessive sweating; no hot flashes; no palpitations; no shortness of breath; no nausea; no diarrhea; no fatigue; no irritability; no muscle tension; no muscle aches; no trembling; no twitching; no headaches; no restlessness; no sleep disturbancesHyperlipidemiaReported bypatient.Control:usually well controlled; improving; at goal Compliance:compliant; compliant with diet; exercises Complications:no coronary artery disease; no peripheral artery disease; no cardiovascular diseaseHypertensionReported bypatient.Onset/Timing:better Self Care:not under emotional stress Associated Symptoms:no shortness of breath; no fatigue; no palpitations; no decline in exercise capacity; no snoringHypothyroidismReported bypatient.Onset/Timing:better Context/Risk:normal thyroid levels; no history of head or neck radiation during childhood; no history of thyroid disease; no history of hypothyroidism; no history of hyperthyroidism; no excess iron exposure Exercisegets exercise Associated Symptoms:no cold intolerance; no heat intolerance; no weight loss; no weight gain; no double vision; no dry eyes; no hoarseness; no difficulty swallowing; no neck masses; no deepening of the voice; no fast heart rate; no increased blood pressure; no palpitations; no chest pain; no chest tightess or pressure; no constipation; no diarrhea; no vomiting; no decreased appetite; no loose stools; no irregular menstrual periods; no excessive sweating; no joint pain; no numbness; no tingling of the hands or feet; no dry skin; no tremor; no nervousness; no anxiety; no depression; no fatigue; no sleep difficulties; no skin changes; no hair changes Not Available [facility] [employer] [facility] 07/05/2021 22:29:17 022 text/h tml Anxiety, Generalized DisorderReported bypatient.Associated Symptoms:no difficulty concentrating; no difficulty controlling worry; no difficulty swallowing; no anxiety; no excessive sweating; no hot flashes; no palpitations; no shortness of breath; no nausea; no diarrhea; no fatigue; no irritability; no muscle tension; no muscle aches; no trembling; no twitching; no headaches; no restlessness; no sleep disturbancesHyperlipidemiaReported bypatient.Control:usually well controlled; improving; at goal Compliance:compliant; compliant with diet; exercises Complications:no coronary artery disease; no peripheral artery disease; no cardiovascular diseaseHypertensionReported bypatient.Onset/Timing:better Self Care:not under emotional stress Associated Symptoms:no shortness of breath; no fatigue; no palpitations; no decline in exercise capacity; no snoringHypothyroidReported bypatient.Associated Symptoms:no weakness; no lightheadedness; no fatigue; no cold intolerance; no constipation; no weight gain; no involuntary weight loss; normal mood; no menstrual irregularity; no pain; no dry/coarse skin; no edema; no deepening of the voice; no hoarseness; no goiter; no mass detected; no chest pain; no palpitations Treatment:taking medication as directedReflux/GERDReported bypatient.Symptomsasymptomatic; no difficulty swallowing; no pain swallowing; no postprandial pain Severity:improving Context:non-smoker; no drug/alcohol abuse; no drug alcohol withdrawal; not related to food/drink Associated Symptoms:no frequent coughing; no feeling of fullness/mass in throat; no hoarseness; no food getting stuck; no belching/burping; no nausea; no vomiting; not vomiting blood; no regurgitation; no shortness of breath; no chest pain; no heartburn; no difficulty swallowing; no pain when swallowing; no bad taste; no decreased appetite; no weight loss; no black/tarry stools; no fatigue; no throat pain; no dental erosion; no bloating; no early satiety; no halitosis Not Available [facility] 10/31/2021 14:01:24 022 text/h tml Anxiety/DepressionReported bypatient.Quality:doesnt matter time of day. Severity:denies suicidal ideations; able to maintain relationships; does not interfere with activities of daily living Duration:symptoms lasting over 2 weeks Onset/Timing:still present Context:no major life stressors Modifying Factors:medications as directed Associated Symptoms:denies homicidal ideations; no significant weight gain; no significant weight loss; no visual/auditory hallucinations; no delusions; no shortness of breath; mood good; no anxiety; no crying spells; no panic; no isolation; sleeping well; appetite good; energy good; no apathy; maintaining functionalityHyperlipidemiaReported bypatient.Duration:chronic Control:usually well controlled Compliance:compliant; compliant with diet; exercises Complications:no coronary artery disease; no peripheral artery disease; no cardiovascular disease Risk Factors:hypertension;smokingHypertens ionReported bypatient.Duration:has noted for years Onset/Timing:better Alleviating Factors:medication Self Care:not under emotional stress Associated Symptoms:no shortness of breath; no palpitations; no decline in exercise capacity; no snoring;fatigueHypothyroidismReported bypatient.Quality:not changing Duration:constant Onset/Timing:still present Context/Risk:normal thyroid levels; no history of head or neck radiation during childhood; no history of thyroid disease; no history of hyperthyroidism; no excess iron exposure;history of hypothyroidism;female gender Modifying Factors:medication Exercisegets exercise Associated Symptoms:no cold intolerance; no heat intolerance; no weight loss; no weight gain; no double vision; no dry eyes; no hoarseness; no difficulty swallowing; no neck masses; no deepening of the voice; no fast heart rate; no increased blood pressure; no palpitations; no chest pain; no chest tightess or pressure; no constipation; no diarrhea; no vomiting; no decreased appetite; no loose stools; no irregular menstrual periods; no excessive sweating; no joint pain; no numbness; no tingling of the hands or feet; no dry skin; no tremor; no nervousness; no anxiety; no depression; no fatigue; no sleep difficulties; no skin changes; no hair changesReflux/GERDReported bypatient.Symptomsasymptomatic; no difficulty swallowing; no pain swallowing; no postprandial pain Severity:same Duration:present 5 or more years Onset/Timing:gone now Context:non-smoker; no drug/alcohol abuse; no drug alcohol withdrawal; not related to food/drink Alleviating Factors:medication Associated Symptoms:no frequent coughing; no hoarseness; no food getting stuck; no belching/burping; no vomiting; not vomiting blood; no regurgitation; no shortness of breath; no chest pain; no heartburn; no difficulty swallowing; no pain when swallowing; no bad taste; no decreased appetite; no weight loss; no black/tarry stools; no fatigue; no throat pain; no dental erosion; no bloating; no early satiety; no halitosis Not Available [place] [facility] 05/07/2022 18:16:58 023 text/h tml Anxiety, Generalized DisorderReported bypatient.Modifying Factors:other medications Associated Symptoms:no difficulty concentrating; no difficulty controlling worry; no difficulty swallowing; no anxiety; no excessive sweating; no hot flashes; no palpitations; no shortness of breath; no nausea; no diarrhea; no fatigue; no irritability; no muscle tension; no muscle aches; no trembling; no twitching; no headaches; no restlessness; no sleep disturbancesHyperlipidemiaReported bypatient.Duration:chronic Control:usually well controlled; improving; at goal Compliance:compliant; compliant with diet; exercises Complications:no coronary artery disease; no peripheral artery disease; no cardiovascular diseaseHypertensionReported bypatient.Onset/Timing:better Alleviating Factors:medication Associated Symptoms:no shortness of breath; no fatigue; no palpitations; no decline in exercise capacity; no snoringHypothyroidismReported bypatient.Onset/Timing:better Context/Risk:normal thyroid levels; no history of head or neck radiation during childhood; no history of thyroid disease; no history of hypothyroidism; no history of hyperthyroidism; no excess iron exposure Exercisegets exercise Associated Symptoms:no cold intolerance; no heat intolerance; no weight loss; no weight gain; no double vision; no dry eyes; no hoarseness; no difficulty swallowing; no neck masses; no deepening of the voice; no fast heart rate; no increased blood pressure; no palpitations; no chest pain; no chest tightess or pressure; no constipation; no diarrhea; no vomiting; no decreased appetite; no loose stools; no irregular menstrual periods; no excessive sweating; no joint pain; no numbness; no tingling of the hands or feet; no dry skin; no tremor; no nervousness; no anxiety; no depression; no fatigue; no sleep difficulties; no skin changes; no hair changesInsomniaReported bypatient.Severity:improving Modifying Factors:prescription medication Associated Symptoms:no anxiety; no snoring; no depression; no known sleep apnea; no pain; no dyspnea; no urinary frequency; legs do not feel restlessReflux/GERDReported bypatient.Severity:improving Context:non-smoker; no drug/alcohol abuse; no drug alcohol withdrawal; not related to food/drink Alleviating Factors:medication Associated Symptoms:no frequent coughing; no feeling of fullness/mass in throat; no hoarseness; no food getting stuck; no belching/burping; no vomiting; not vomiting blood; no regurgitation; no shortness of breath; no chest pain; no heartburn; no difficulty swallowing; no pain when swallowing; no bad taste; no decreased appetite; no weight loss; no black/tarry stools; no fatigue; no throat pain CLAUDIA Morris [address], [address], [place] [facility] [employer] 11/04/2022 22:28:49 023 text/h tml Anxiety, Generalized DisorderReported bypatient.Modifying Factors:other medications Associated Symptoms:no difficulty concentrating; no difficulty controlling worry; no difficulty swallowing; no anxiety; no excessive sweating; no hot flashes; no palpitations; no shortness of breath; no nausea; no diarrhea; no fatigue; no irritability; no muscle tension; no muscle aches; no trembling; no twitching; no headaches; no restlessness; no sleep disturbancesHyperlipidemiaReported bypatient.Duration:chronic Control:usually well controlled; improving; at goal Compliance:compliant; compliant with diet; exercises Complications:no coronary artery disease; no peripheral artery disease; no cardiovascular diseaseHypertensionReported bypatient.Onset/Timing:better Alleviating Factors:medication Associated Symptoms:no shortness of breath; no fatigue; no palpitations; no decline in exercise capacity; no snoringHypothyroidismReported bypatient.Onset/Timing:better Context/Risk:normal thyroid levels; no history of head or neck radiation during childhood; no history of thyroid disease; no history of hypothyroidism; no history of hyperthyroidism; no excess iron exposure Exercisegets exercise Associated Symptoms:no cold intolerance; no heat intolerance; no weight loss; no weight gain; no double vision; no dry eyes; no hoarseness; no difficulty swallowing; no neck masses; no deepening of the voice; no fast heart rate; no increased blood pressure; no palpitations; no chest pain; no chest tightess or pressure; no constipation; no diarrhea; no vomiting; no decreased appetite; no loose stools; no irregular menstrual periods; no excessive sweating; no joint pain; no numbness; no tingling of the hands or feet; no dry skin; no tremor; no nervousness; no anxiety; no depression; no fatigue; no sleep difficulties; no skin changes; no hair changesInsomniaReported bypatient.Severity:improving Modifying Factors:prescription medication Associated Symptoms:no anxiety; no snoring; no depression; no known sleep apnea; no pain; no dyspnea; no urinary frequency; legs do not feel restlessReflux/GERDReported bypatient.Severity:improving Context:non-smoker; no drug/alcohol abuse; no drug alcohol withdrawal; not related to food/drink Alleviating Factors:medication Associated Symptoms:no frequent coughing; no feeling of fullness/mass in throat; no hoarseness; no food getting stuck; no belching/burping; no vomiting; not vomiting blood; no regurgitation; no shortness of breath; no chest pain; no heartburn; no difficulty swallowing; no pain when swallowing; no bad taste; no decreased appetite; no weight loss; no black/tarry stools; no fatigue; no throat pain CLAUDIA Morris [address] [facility], [address], [address], [place] [facility] 05/07/2023 17:22:37 OBGyn Episode No OBEpisode recorded.
--- OUTSIDE RECORDS SUMMARY | 2024-09-23 11:38 | XMS_ITS ---
Author Organization [facility] [employer] [facility] Address [address] [facility] [address] [place] [address] Care Team Providers Care Fish Tender Name Role Phone EveliafrankoKarla quintana Unavailable [phone] REASON FOR VISIT PA not required-vraylar Social History Sex Assigned At : Social History Observation Description Sex Assigned At Female Encounters Encounter Location Date Provider Diagnosis [facility] [employer] [facility] [address] [facility] [address] [place] [address] 02/16/2024 Karla Cardona Plan Of Treatment Next Appt Details Provider Name:Renaedelisa Kennedytamiko vance, 10/05/2024 02:15:00 PM, [address], [facility] [address], [place], [address], Progress Notes * AYDEE LOVELACEDOB: 6 (68 yo F)Acc No.[id number]:02/16/2024 Patient: AYDEE LEZAMA :1955 A ge:68 Y S ex:Female Address:[address] [place] [address], [address] * true * Date: Generated for Roberto butler/Trevon/eTransmitting on: 0 09/23/2024 11:37 AM SPECIAL SERVICES AGENT
[2024-09-23 12:04] LABS: Basophils Percent Auto 0.7 % (0.2-1.2); Eosinophils Absolute Auto 0.1 K/mm3 (0-0.3); Eosinophils Percent Auto 2.3 % (0-4.4); Hematocrit 30.2 % (37.0-47.0); Hemoglobin 9.4 g/dL (12.0-15.0); Immature Granulocyte Absolute 0.02 K/mm3 (0.00-0.031); Immature Granulocyte Percent A 0.3 % (0-0.5); Lymphocytes Absolute Auto 1.14 K/mm3 (0.9-3.2); Lymphocytes Percent Auto 18.8 % (18.3-44.2); Mean Corpuscular HGB Conc 31.1 g/dl (32-36); Mean Corpuscular Hemoglobin 27.2 pg (26-34); Mean Corpuscular Volume 87.5 fl (80-100); Mean Platelet Volume 10.4 fl (7.4-10.4); Monocytes Absolute Auto 0.5 K/mm3 (0.1-0.6); Monocytes Percent Auto 7.9 % (2.6-8.5); Neutrophils Absolute Auto 4.2 K/mm3 (1.3-6.7); Platelet Count Result 302 k/mm3 (150-375); Red Blood Count 3.45 M/mm3 (4.2-5.4); Red Cell Distribution Width 15.9 % (11.5-14.5); White Blood Count 6.1 K/mm3 (4.5-10.0)
[2024-09-23 12:10] LABS: Alanine Aminotransferase 15 U/L (6-35); Albumin Level 3.7 g/dL (3.5-5.1); Alkaline Phosphatase 71 U/L (38-126); Anion Gap 10 mmol/L (4-12); Aspartate Amino Transferase 20 U/L (14-36); Bilirubin,Total 0.4 mg/dL (0.2-1.3); Blood Urea Nitrogen 31 mg/dL (7-17); Calcium 8.6 mg/dL (8.4-10.2); Carbon Dioxide 29 mmol/L (22-30); Chloride 97 mmol/L (98-107); Cholesterol 96 mg/dL (0-200); Estimated Glomerular Filt Rate 56; Glucose 116 mg/dL (65-110); HDL Direct 46 mg/dL; Potassium 4.3 mmol/L (3.4-5.0); Sodium 136 mmol/L (137-145); Triglycerides 121 mg/dL (<150)
[2024-09-23 12:21] LABS: Iron 67 ug/dL (37-170); LDL Cholesterol Direct 33 mg/dL
[2024-09-23 12:26] LABS: Hemoglobin A1C 6.1 % (<5.7)
[2024-09-23 12:30] LABS: Percent Iron Saturation 16 % (20-50)
[2024-09-23 12:38] LABS: Free T4 Free Thyroxine 1.19 ng/dL (0.78-2.19)
[2024-09-23 12:56] LABS: Ferritin 5.61 ng/mL (11.1-264)
== END 2024-09-23 11:24 | disposition home or self-care (01) ==
PROVIDERS: PCP Physician Assistant; Visit Provider Physician Assistant
DX: E03.9 Hypothyroidism, unspecified (principal); E78.5 Hyperlipidemia, unspecified; E11.9 Type 2 diabetes mellitus without complications; D50.9 Iron deficiency anemia, unspecified; Z79.899 Other long term (current) drug therapy
CPT/HCPCS: 36415; 80048; 80061; 80076; 82728; 83036; 83540; 83550; 84439; 84443; 85025

== ENCOUNTER 2024-09-29 15:06 | Outpatient (CLI) | payer MEDICARE, SELFPAY ==
--- NOTE | ~2024-09-29 | MM_ITS ---
EXAMINATION: MM screening [facility] w valeriano HISTORY: Screening TECHNIQUE: Craniocaudal and mediolateral oblique 3-D tomosynthesis images were obtained and synthetic 2-D images were generated. CAD analysis was submitted and interpreted. COMPARISON: Comparison to multiple prior studies sequentially, with oldest reviewed study dated 12/25. BREAST PARENCHYMAL COMPOSITION: Not Dense: The breasts are almost entirely fatty. FINDINGS: There is no evidence of suspicious mass, calcification, or architectural distortion to sugg est malignancy in either breast. There has been no suspicious interval change. IMPRESSION: 1. No mammographic evidence of malignancy. 2. Recommend routine screening mammography in one year. BI-RADS Category 1: Negative Reviewed, dictated and finalized at location B. BBER MACHINE TENDER
== END 2024-09-29 15:07 | disposition home or self-care (01) ==
LOC: MICIMG 15:07
PROVIDERS: PCP Physician Assistant; Visit Provider Obstetrics & Gynecology
DX: Z12.31 Encounter for screening mammogram for malignant neoplasm of breast (principal)
CPT/HCPCS: 77063; 77067

== ENCOUNTER 2024-11-08 13:13 | Outpatient (CLI) | payer MEDICARE, SELFPAY ==
--- NOTE | ~2024-11-08 | DEXA_ITS ---
Bone Density Report Name: AYDEE LOVELACE Age: 68 Sex: Female Ethnicity: White Date of : 1955 Indication: postmenopausal; screening for osteoporosis; height loss; hysterectomy; Referring Provider: SUSIE, MACIEJ Study: Bone densitometry was performed. Exam Date: November 08, 2024 Accession number: [id number] Bone Density: Region BMD T-score Z-score Classification AP Spine(L1-L4) 1.166 1.1 3.1 Normal Femoral Neck (Left) 0.670 -1.6 0.1 Osteopenia Total Hip (Left) 0.947 0.0 1.5 Normal Femoral Neck (Right) 0.671 -1.6 0.1 Osteopenia Total Hip (Right) 0.857 -0.7 0.7 Normal Total Hip Mean 0.902 -0.4 1.1 Normal World Health Organization criteria for BMD impression classify patients as: Normal (T-score at or above -1.0), Osteopenia (T-score between -1.0 and -2.5), or Osteoporosis (T-score at or below -2.5). 10-year Fracture Risk(1): Major Osteoporotic Fracture 10% Hip Fracture 2.4% Reported Risk Factors: [place] (), Neck BMD=0.670, BMI=28.2, smoking (1) FRAX(R) Version 3.08. Fracture probability calculated for an untreated patient. Fracture probability may be lower if the patient has received treatment. Clinical Information Provided by Patient: Smokes Has used the following medications: Vitamin D Has the following medical conditions: Hysterectomy Patient maximum height was 70 Menopause Age: 35 No regular weight bearing exercise Does not regularly consume dairy products Drinks caffeinated beverages Onset of menses at age 13 Number of children 1 Impression: The patient has low bone mass, based on the Left Femoral Neck T-score. The patient has an estimated ten-year risk of hip fracture of 2.4% and an estimated ten-year risk of major fracture of 10%, based on the WHO FRAX algorithm. The patient has risk factors, including: smoking. Discussion: BONE DENSITY IS LOW AT ONE OR MORE SKELETAL SITES. This patient's lowest T-score is low at one or more skeletal sites. It meets the World Health Organization's (WHO) criteria for ?low bone mass? (T-score between -1.0 and -2.5). The patient's 10-year risk of fracture as calculated by FRAX is less than the threshold where pharmacological therapy is recommended by the National Osteoporosis Foundation (NOF). However, all treatment decisions require clinical judgment and consideration of individual patient factors, including patient preferences, comorbidities, previous drug use, risk factors not captured in the FRAX model (e.g., frailty, falls, vitamin D deficiency, increased bone turnover, interval significant decline in bone density) and possible under or overestimation of fracture risk by FRAX. The patient should follow a healthful lifestyle (good nutrition with adequate calcium and vitamin D, and appropriate weight-bearing exercise). Follow-Up: Consider repeating this study in 2 to 3 years to reassess this patient's status, or sooner if there is some new clinical indication. Reported by: MAUDE on 11/08/2024 1:49:00 PM. Reviewed, dictated and finalized at location ABishnu MORAN
--- OUTSIDE RECORDS SUMMARY | 2024-11-08 14:20 | XMS_ITS | Data Portability ---
Author Organization JACKY KAYCEEElsie Barrientos Address [address] [place] [address] Care Team Providers Care Basket Hand Braider Name Role Phone MELANIE RICHARDS Primary Care Provider Unavailab le Assessment [...] HbA1c (hemoglob in A1c), blood 2024 025 [facility], [address] [place] [address], [id number], 10/25/2024 15:22:48 hepatic function panel, serum 2024 025 [facility], [address] [place] [address], [id number], 10/25/2024 15:26:27 BMP, serum or plasma 2024 025 [facility], [address] [place] [address], [id number], 10/25/2024 15:26:28 TSH + free T4, serum 2024 025 [facility], [address] [place] [address], [id number], 10/25/2024 15:22:48 lipid panel, serum 2024 025 [facility], [address] [place] [address], [address], 10/25/2024 15:23:57 iron + TIBC + ferritin, serum 2024 025 [facility], [address] [place] [address], [id number], 10/25/2024 15:22:48 CBC w/ auto diff 2024 025 [facility], [address] [place] [address], [id number], 10/25/2024 15:25:11 hepatic function panel, serum 2023 024 [facility], [address] [place] [address], [id number], 03/23/2024 15:26:05 BMP, serum or plasma 2023 024 [facility], [address] [place] [address], [id number], 03/23/2024 15:26:16 vitamin B12 + folate, serum or blood 2023 024 [facility], [address] [place] [address], [id number], 03/23/2024 15:25:55 lipid panel, serum 2023 024 [facility], [address] [place] [address], [id number], 03/23/2024 15:27:50 HbA1c (hemoglob in A1c), blood 2023 024 [facility], [address] [place] [address], [id number], 03/23/2024 15:27:14 microalbu min, urine 2023 024 [facility], [address], [place], [address], 03/23/2024 15:26:58 TSH + free T4, serum 2023 024 [facility], [address], [place], [address], 03/23/2024 15:26:32 iron + TIBC + ferritin, serum 2023 024 [facility], [address], [place], [address], 03/23/2024 15:27:34 CBC w/ auto diff 2023 024 [facility], [address] [facility] [address] [facility] [address], [place], [address], 04/14/2024 15:28:40 Referral None recorded. Procedures upper endoscopy (EGD) with diagnosti c colonosco py (PROC) 2023 024 [facility], [address], [place], [address], 04/19/2024 12:08:20 Surgeries None recorded. Imaging DEXA 2023 024 [email or web address] [facility], [address], [place], [address], 09/27/2024 17:34:01 MAMMO, screening , digital, bilateral 2023 024 [email or web address] [facility], [address], [place], [address], 09/27/2024 17:34:05 Medication Orders Ozempic 0.25 mg or 0.5 mg (2 mg/3 mL) subcutane ous pen injector 2024 025 JULIAETTA [id number], [address] [facility], [place], [place], [id number], 08/22/2024 16:00:17 Patient TargetsNo targets recorded. Patient Instructions Encounter Date Encounter Id Patient Instructions Last Modified By Organization Details Last Modified Time 08/22/2024 [id number] A healthy lifestyle: care instructions Not available 08/22/2024 15:55:42 Reason for Referral None Reported. Results Created Date Observation Date Name Description Value Unit Range Abnormal Flag Note LastModifiedBy Organization Detail LastModifiedTime 09/30/1909/29/2024 MAMMO , scree claudia, digit al, bilat eral No observ ation record ed. [facility] [address] [address], [place], [address], 09/30/2024 08:33:48 Result Notes None recorded. Problems Name Problem SNOMED Code Status Onset Date Resolution Date Notes Provider Name and Address Organization Details Recorded Time Hypothyroid ism 49161616 Active 2023 Vianca Angel null, [place] - [facility] 4 13:47:23 Hyperlipide thi 74124362 Active 2023 Vianca [place] [facility] 4 13:47:38 Gastroesoph ageal reflux disease 629278740 Active 2023 Vianca [place] [facility] 4 13:47:42 Well controlled type 2 diabetes mellitus 706078617 Active 2023 CLAUDIA Morris Attn: Viri christina,[address] [place], [address], [place] [facility] 4 12:52:34 Iron deficiency anemia 80168143 Active 2023 CLAUDIA Morris Attn: Viri christina,[address] [place], [address], [place] [facility] 4 12:53:07 Long-term drug therapy Active 2023 CLAUDIA Morris Attn: Viri christina,[address] [facility] [place] [place], [address], [place] [facility] 4 12:54:46 Body mass index 25-29 - overweight 013916608 Active 2023 CLAUDIA Morris Attn: Viri christina,[address] [facility], [place], [address], [facility] - [facility] 4 12:54:59 Osteoporosi s 80169305 Active 2023 CLAUDIA Morris Attn: Accountkendall g,[address] [facility], [place], [address], [facility] - [facility] 4 12:55:06 Benign essential hypertensio n 2078396 Active 2023 CLAUDIA Morris Attn: Accountkendall g,[address] [facility], [place], [address], [facility] - [facility] 4 12:55:27 Positive screening for depression on PHQ-9 (Patient Health Questionnai re 9) 0506623322427 00 Active 2023 CLAUDIA Morris Attn: Accountkendall g,[address] [facility], [place], [address], [facility] - [facility] 4 12:56:20 Problem Notes None recorded. Procedures Surgical History Date Name Laterality Status Provider Name and Address Organization Details Recorded Time Arthroscopic Surgery completed Eleuterio El MA [facility] 02/10/2024 16:19:27 Knee Surgery completed Eleuterio El [place] [facility] 02/10/2024 16:19:32 hysterectomy completed Eleuterio El [place] [facility] 02/10/2024 16:19:39 Imaging Results Imaging Date Name Status LastModified by Organ [facility] Details LastModified Time 09/29/2024 MAMMO, screening, digital, bilateral completed [facility] [address], [place], [address], 09/30/2024 08:33:48 Procedure Notes None recorded. Medical Equipment None Reported. Allergies Allergen ID Allergen Name Allergen Category Reaction Reaction Severity Criticality Documentation Date Start Date Code Code System Note Provider Name and Address Organization Details Recorded Time 956780 cow milk allergeni c extract food,medi cation Not available Not available Not available 02/10/2024 34813 5 RxNorm Not Available Not Available Not Available 260938 latex environme nt,medica tion Not available Not available Not available 02/10/2024 12269 91 RxNorm Not Available Not Available Not Available 459427 neomycin / polymyxin B / pramoxine medicatio n Not available Not available Not available 02/10/2024 77000 9 RxNorm Not Available Not Available Not [...] TAKE 1 TABLET BY MOUTH TWICE DAILY 2024 active Not Available Not Available Not Avai lable acetaminoph en 300 mg-codeine 60 mg tablet TAKE 1 TABLET BY MOUTH FOUR TIMES DAILY NEEDED 02/09 completed Not Available Not Available Not Available amoxicillin 875 mg-ortiz stone clavulanate 125 mg tablet TAKE 1 TABLET [...] % 98 % 68 /min 26.6 kg/m2 82807.0 6 g 128 mm[Hg] 78 mm[Hg] Eleuterio El [place] - [facility] 4 15:27:15 Date Recorded Systolic blood pressure Diastolic blood pressure Provider Name and Address Organization Details Last Updated DateTime 02/10/2024 110 mm[Hg] 80 mm[Hg] Melanie Menossi, PA Attn: Accounting[address] [place], [address], [facility] 02/10/2024 15:37:44 Date Recorded Body height Respiratory rate Body mass index (BMI) Body weight Oxygen saturation Oxygen saturation in Arterial blood by Pulse oximetry Heart rate Systolic blood pressure Diastolic blood pressure Provider Name and Address Organization Details Last Updated DateTime 175.26 cm 20 /min 26.6 kg/m2 77212.6 3 g 96 % 96 % 74 /min 138 mm[Hg] 78 mm[Hg] Eleuterio El MA [facility] 15:33:27 Date Recorded Systolic blood pressure Diastolic blood pressure Provider Name and Address Organization Details Last Updated DateTime 08/22/2024 130 mm[Hg] 80 mm[Hg] CLAUDIA Morris Attn: Accounting[address] [place], [address], [facility] 09/08/2024 21:45:40 Social History Question Answer Notes LastModified by Organizat ion Details LastModified Time Tobacco Smoking Status Current Some Day Smoker Eleuterio El MA null, [facility] 02/10/2024 15:24:23 Do You Have An Advance [...] Anxious, Or Unable To Sleep At Night)? [id number] Information not available 02/10/2024 Do You Use [...] Reflux (GERD) Y Cancer N Stroke N High Cholesterol N Liver Disease N Headaches N Kidney or Bladder Problems Y Thyroid Problems Y GI Problems N Have you had a mammogram in the last yea r? N Skin Problems N Anemia N Heart Attack ([place]) N Diabetes Y Seizures/Epilepsy N Asthma N Allergies Y Hepatitis N Heart Failure N Osteoporosis Y Gynecological History Statement/Question Response Menses Monthly N Current Control Method Other Obstetrics History GPAL:G 0 P 0 0 0 0 Immunizations Vaccine Type Date Status Note Provider Nam e and Address Organization Details Recorded Time COVID-19, [...] 08/24/2024 completed CLAUDIA Morris Attn: Accounting[address] [place], [address], [place] [facility] 09/08/2024 21:45:40 Past Encounters Encounter ID Performer Location Encounter Start Date Encounter Closed Date Diagnosis/Indication Diagnosis SNOMED-CT Code Diagnosis ICD10 Code Diagnosis Note [id number] CLAUDIA Morris [facility] [employer] [facility] [place] [address] [place] [address] 02/10/2024 14:53:17 02/10/2024 15:49:24 Body mass index 25-29 - overweight 677624599 Z68.26 BMI is 26.6 Hypothyroidism 21621898 E03.9 Patient is taking levothyrox ine 75 mcg daily and due for updated thyroid function panel. Hyperlipidemia 72529788 E78.5 Patient is taking rosuvastat in 10 mg daily and due for fasting lipid panel Gastroesop hageal reflux disease 826470121 K21.9 Patient is stable on pantoprazo le 40 mg twice daily she is however still due for the EGD scope that has been ordered on 2 previous occasions. Long-term drug therapy 351814162 Z79.899 Routine hepatic panel, metabolic panel and vitamin B12 and folate are due Iron defic iency anemia 99789365 D50.9 Patient has a history of iron [...] Well contr olled type 2 diabetes mellitus 239632830 E11.9 Patient is stable on metformin therapy 500 mg twice daily, and dietary management . She is due for updated hemoglobin A1c and annual microalbum in test of the urine. Screening mammography 24 810248 Z12.31 Annual mammogram is due Osteoporosis 37122791 M8 1.0 Routine DEXA scan is due for follow-up on osteoporos is status Benign ess ential hypertension 1410478 I10 Blood pressure is 110/80 today and stable on losartan hydrochlor othiazide and metoprolol combinatio n. Positive s creening for depression on PHQ-9 (Patient Health Questionnaire 9) 5300875864 06993 Z13.31 Patient scored a 6 on screening today. She is on more medication s from a specialist that she sees routinely and discusses her mental health management [id number] CLAUDIA Morris [facility] [employer] [address] [place] [address] 08/22/2024 15:21:58 08/22/2024 16:21:00 Body mass index 25-29 - overweight 637491309 Z68.26 BMI is 26.6 Overweight 040298458 E66 .3 Well contr olled type 2 diabetes mellitus 582373670 E11.9 Patient is stable on metformin therapy 500 mg twice daily, and dietary management . She is due for updated hemoglobin A1c. Last A1c was 6.4%. Patient is interested in starting injectable therapy start ozempic therapy. no personal or fam hx of medullary thyroid cancer or NE or MEN tumors. Benign ess ential hypertension 4802212 I10 Blood pressure is stable.Luana sauer is taking losartan hydrochlor othiazide 100/25 mg daily and metoprolol succinate ER 50 mg half a tablet daily Hypothyroidism 51320058 E03.9 Patient is taking levothyrox ine 75 mcg daily and due for updated thyroid function panel. Hyperlipidemia 10586574 E78.5 Patient is taking rosuvastat in 10 mg daily and due for fasting lipid panel Iron defic iency anemia 81397842 D50.9 Patient has a history of iron deficiency anemia that has been discussed on several prior visits including at the old primary care location. She has completed GI scopes and we will have to call for results as they are not sent yet. Due for updated CBC and iron studies Osteoporosis 37367164 M8 1.0 Routine DEXA scan is due for follow-up on osteoporos is status Long-term drug therapy 497519564 Z79.899 Routine hepatic panel, metabolic panel and vitamin B12 and folate are due Administra tion of influenza vaccine 50194739 Z23 Flu shot given today Gastroesop hageal reflux disease without esophagitis 725030138 K21.9 stable on PPI therapy Health Concerns Section Related Observation LastModified by Organization Detai ls LastModified Time None Recorded Concern Status LastModified by Organization Details LastModified Time None Recorded Advance Directives Directive N: Payers Encounter Date Sequence Insurance Name Policy Number Policy Bernstein Covered Member ID Bernstein Member ID Guarantor Name 02/10/2024 1 [facility] (MEDICARE REPLACEMENT/A DVANTAGE - HMO) [id number] Blanca Laura [id number] Blanca Laura 08/22/2024 1 [facility] (MEDICARE REPLACEMENT/A DVANTAGE - HMO) [id number] Blanca Laura [id number] Blanca Laura Notes Date Note Type Note [...] DEXA scan. CLAUDIA Morris Attn: Accounting, [address] [place], [address], [facility] 02/18/2024 12:56:26 025 text/ht ml AnemiaReported bypatient.Notes:Patient [...] DEXA scan. CLAUDIA Morris Attn: Accounting, [address] [place], [address], [facility] 09/08/2024 21:51:45 OBGyn Episode No OBEpisode recorded.
--- OUTSIDE RECORDS SUMMARY | 2024-11-08 14:20 | XMS_ITS | Referral Summary ---
Author Organization [facility] [address] Address [address] [place] [address] Care Team Providers Care Liner Helper Name Role Phone Melanie Lerner Primary Care Pr ovider Allergies Active Allergy Reactions Criticality Noted Date Comments Bacitracin Unknown 05/16/2020 Latex Unknown 05/16/2020 Oxuhvcfd-Dqefnlpojd-Bezfpshyr Other (See comments) Low 05/16/2020 Reaction: Active Problems Problem Noted Date Diagnosed Date Hyperparathyroidism 12/27/2009 Rhinitis 12/05/2009 Nontoxic single thyroid nodule 12/05/2009 Social History Tobacco Use Types Packs/Day Years Used Date Smoking Tobacco: Never Assessed Comments Unknown Sex and Gender Information Value Date Recorded Sex Assigned at Not on file Legal Sex Female 12:28 AM [employer]IOR [employer] ANALY[employer] Gender Identity Not on file Sexual Orientation Not on file Plan of Treatment Not on file Insurance [facility] MD[facility] HMO [facility] Address: [facility] [address] [place] [address] Care Teams Liner Helper Relationship Specialty Start Date End Date Melanie Lerner PA PCP - General Physician Edi Analyst 03/12/20
--- OUTSIDE RECORDS SUMMARY | 2024-11-08 14:21 | XMS_ITS ---
Author Organization [facility] [employer] Address [address] [place] [address] Care Team Providers Care Ultrasound Supervisor Name Role Phone Melanie Villela Primary Care Provider Renae Moses Unavailable [phone] Allergies Allergen (clinical drug ingredient) Drug/Non Drug Allergy documented on EMR Reaction Allergy Type Onset Date Status lisinopril Lisinopril Unknown Drug Allergy 06/23/2023 Acti ve Latex Latex Unknown Allergy 06/23/2023 Active REASON FOR VISIT follow up medication management Medications Medication SIG (Take, Route, Frequency, Duration) Notes Start Date End Date Status metFORMIN HCl 500 MG Oral 09/23/2023 Active OptiChamber Caitlin MISCELLANEOUS 09/23/2023 Active Losartan Potassium-HCTZ 100-25 MG Oral 09/23/2023 Active Vraylar 3 MG 1 capsule Orally Once a day for 30 days 02/19/2024 Active Estradiol 1 MG Oral 09/23/2023 Acti ve Levothyroxine Sodium 75 MCG Oral 09/23/2023 Active Cyclobenzaprine HCl 10 MG Oral 09/23/2023 Active Meloxicam 15 MG Oral 09/23/2023 Act anthony Pantoprazole Sodium 40 MG Oral 09/23/2023 Active Rosuvastatin Calcium 10 MG Oral 09/23/2023 Active Diclofenac Sodium 1% Transdermal 09/23/2023 Active Metoprolol Succinate ER 50 MG Oral 09/23/2023 Active STIMULANT LAXATIVE PLUS 8.6-50 mg Oral *Reorder from [employer] for eRx and Interaction Alerts* 09/23/2023 Active traZODone HCl 100 MG 2 tablets Oral daily at bedtime for 30 days Active HYDROcodone-Acetaminop hen 10-325 MG Oral 09/23/2023 Active buPROPion HCl ER (XL) 150 MG 1 tablet in the morning Orally Once a day for 30 days Active Vraylar 3 mg 1 capsule Oral daily for 30 days Active DULoxetine HCl 60 MG 1 capsule Orally Once a day for 30 days Active Social History Sex Assigned At : Social History Observation Description Sex Assigned At Female Household Question Answer Notes Marital status: Tobacco Control (Standard) Question Answer Notes Additional Findings: Tobacco user e-cigarette Vital Signs Blood pressure systolic 143 mm Hg 10/05/19 25 Blood pressure diastolic 89 mm Hg 025 Heart Rate 76 /min 10/05/2024 Height 70.00 in 10/05/2024 Height-cm 177.80 cm 10/05/2024 Encounters Encounter [facility] Date [facility] [address] [place] [address] 10/05/2024 Renae Lux Major depressive disorder, recurrent, mild F33.0 ; Primary insomnia F51.01 ; Generalized anxiety disorder F41.1 and Benign essential HTN I10 Assessments Encounter Date Diagnosis (ICD Code) Assessment Notes Treatment Notes Treatment Clinical Notes Section Notes 10/05/2024 Major depressive disorder, recurrent, mild (ICD-10 - F33.0) 10/05/2024 Primary insomnia (ICD-10 - F51.01) 10/05/2024 Generalized anxiety disorder (ICD-10 - F41.1) 10/05/2024 Benign essential HTN (ICD-10 - I10) Plan Of Treatment Medication Medication Name Sig Start Date Stop Date Notes traZODone HCl 100 MG 2 tablets Oral sheldon y at bedtime for 30 days buPROPion HCl ER (XL) 150 MG 1 tablet in the morning Orally Once a day for 30 days Vraylar 3 mg 1 capsule Oral daily for 30 days DULoxetine HCl 60 MG 1 capsule Orally On ce a day for 30 days Next Appt Details Follow Up: 4 Months, Reason: Provider Name:Renae vance, 12/28/2024 01:45:00 PM, [address], [address], [place], [address], Progress Notes * LIOR LOVELACEB: 6 (68 yo F)Acc No.[id number]:10/05/2024 Patient: AYDEE LEAZMA Provider: Shahzad Lux :1955 A ge:68 Y S ex:Female Date:10/05/2024 Address:[address] [place], [place] [id number] Pcp:Melanie TAYLOR Subjective: * Chief Complaints: * F ollow up medication management * HPI: H istory of Presenting Problem: This note is transcribed using speech recognition software. It is a reflection of a visit with the patient. It might have some inaccuracy, including medication names and transcribing errors, though efforts have been made to correct them. 68 y/o female, , here to follow up for depression, anxiety, and insomnia. New to me, last visit in May with another provider. No medication changes at that time, stable Reports today that her mood has been great with no current complaints. States medications have been helpful. Anxiety is manageable and better than I was, noting she is able to control it. Sleep is going quite well, using trazodone at bedtime to aid with sleep. Denies any balance issues, confusion, falls, memory concerns, or tremors. Also denies experiencing hallucinations or suicidal thoughts. Recent medical procedures include colonoscopy and mammogram (results normal). Mentions dental issues, in process of getting dentures currently. Has impacted her diet and oral intake but denies appetite concerns. Satified with current medications and has no concerns of side effects. substance update: caffeine 2 cups coffee, vapes nicotine, alcohol none, cannabis- smokes marijuana for back pain, has medical card, no other drug use ongoing notes: I was not in a good place before I went on the [employer] 02/10/24 liver panel, BMP, vit B12 and folate, lipid, A1c, TSH and free T4, iron panel, CBC. Do not see results. Pt reports PCP told her everything was fine. 05/28/23 PCP labs: hgb A1C 5.9, CMP -glucose 120, TSH 0.881, CBC-anemia, iron studies. Pt states in appt, was not fasting for labs, and they are working on anemia. * ROS: G eneral / Constitutional: Patient denies f atigue, sleep disturbance. ? C ardiovascular: Patient denies p alpitations, high blood pressure. ? G astrointestinal: Patient denies n ausea, vomiting, change in bowel habits.? N eurologic: Patient denies t ic, tremor, tremor, tic. P sychiatric: Patient denies d epressed mood, anxiety, auditory / visual hallucinations, substance abusinvoluntary movements, e, suicidal thoughts. C loi [facility] for details. * Medical History: * Medications: T akingVraylar 3 mg Capsule 1 capsule Oral daily traZODone HCl 100 MG Tablet 2 tablets Oral daily at bedtime Diclofenac Sodium 1% Gel Transdermal Metoprolol Succinate ER 50 MG Tablet Extended Release 24 Hour Oral STIMULANT LAXATIVE PLUS 8.6-50 mg Tablet Oral , Notes to Pharmacist: *Reorder from [facility] for eRx and Interaction Alerts*HYDROcodone-Acetaminophen 10-325 MG Tablet Oral Pantoprazole Sodium 40 MG Tablet Delayed Release Oral Rosuvastatin Calcium 10 MG Tablet Oral Levothyroxine Sodium 75 MCG Tablet Oral Cyclobenzaprine HCl 10 MG Tablet Oral Meloxicam 15 MG Tablet Oral Estradiol 1 MG Tablet Oral metFORMIN HCl 500 MG Tablet Oral OptiChamber Caitlin SPACER (EA) MISCELLANEOUS Losartan Potassium-HCTZ 100-25 MG Tablet Oral Vraylar 3 MG Capsule 1 capsule Orally Once a day DULoxetine HCl 60 MG Capsule Delayed Release Particles 1 capsule Orally Once a day buPROPion HCl ER (XL) 150 MG Tablet Extended Release 24 Hour 1 tablet in the morning Orally Once a day Medication List reviewed and reconciled with the patientTaking Vraylar 3 mg Capsule 1 capsule Oral daily Taking traZODone HCl 100 MG Tablet 2 tablets Oral daily at bedtime Taking Diclofenac Sodium 1% Gel Transdermal Taking Metoprolol Succinate ER 50 MG Tablet Extended Release 24 Hour Oral Taking STIMULANT LAXATIVE PLUS 8.6-50 mg Tablet Oral , Notes to Pharmacist: *Reorder from [facility] for eRx and Interaction Alerts*Taking HYDROcodone-Acetaminophen 10-325 MG Tablet Oral Taking Pantoprazole Sodium 40 MG Tablet Delayed Release Oral Taking Rosuvastatin Calcium 10 MG Tablet Oral Taking Levothyroxine Sodium 75 MCG Tablet Oral Taking Cyclobenzaprine HCl 10 MG Tablet Oral Taking Meloxicam 15 MG Tablet Oral Taking Estradiol 1 MG Tablet Oral Taking metFORMIN HCl 500 MG Tablet Oral Taking OptiChamber Caitlin SPACER (EA) MISCELLANEOUS Taking Losartan Potassium-HCTZ 100-25 MG Tablet Oral Taking Vraylar 3 MG Capsule 1 capsule Orally Once a day Taking DULoxetine HCl 60 MG Capsule Delayed Release Particles 1 capsule Orally Once a day Taking buPROPion HCl ER (XL) 150 MG Tablet Extended Release 24 Hour 1 tablet in the morning Orally Once a day Medication List reviewed and reconciled with the patient * Allergies: L isinopril: Allergy - Onset Date 06/23/2023Latex: Allergy - Onset Date 06/23/2023no[Allergies Verified] Objective: * Vitals: B P:143/89mm Hg, HR:76/min, Ht: 70.00 in, Ht-cm: 177.80 cm. * Examination: P sychiatry: Appearance: a lert, groomed, a ppears well rested. In no acute distress , alert, groomed, a ppears well rested. In no acute distress. Abnormal body movements: n one noted , none noted. Affect / mood: f ull range, appropriate , full range, appropriate. Attention: n ormal in conversation , normal in conversation. Attitude: c ooperative, open-minded with collaborative approach , cooperative, open-minded with collaborative approach. Homicidal ideation: n one , none. Suicidal ideation: n one , none. Memory status: n o impairment noted , no impairment noted.? Degree of awareness of surroundings: w ithin normal limits , within normal limits. Delusions: n o , no. Hallucinations: n o , no. Insight: g ood , good. Intellectual functioning: n o impairment noted , no impairment noted. Judgement: g ood , good. Orientation: a wake, alert and oriented x 3 , awake, alert and oriented x 3. Psychomotor activity: w ithin normal range , within normal range. Speech / language: c lear and coherent, appropriate pitch/modulation, normal rate, volume, and articulation (RVR), proper grammar used , clear and coherent, appropriate pitch/modulation, normal rate, volume, and articulation (RVR), proper grammar used. Thought content: a ppropriate , appropriate. Thought process: i ntact , intact. Assessment: * Assessment: 1. M pabloor depressive disorder, recurrent, mild - F33.0 (Primary) 2 . P rimary insomnia - F51.01 3 . G eneralized anxiety disorder - F41.1 4 . B enign essential HTN - I10 Plan: * Treatment: 2. P rimary insomnia Refill traZODone HCl Tablet, 100 MG, 2 tablets, Oral, daily at bedtime, 30 days, 60, Refills 3.? 3. G eneralized anxiety disorder Refill DULoxetine HCl Capsule Delayed Release Particles, 60 MG, 1 capsule, Orally, Once a day, 30 days, 30 Capsule, Refills 3. * Procedure Codes: G 2211 VISIT COMPLEXITY INHERENT TO ONGOING CARE RELATED TO A PATIENT'S SINGLE, SERIOUS CONDITION OR A COMPLEX [id number] Pt not rocky d/t act dig htn * Follow Up: 4 Months * Billing Information: * Visit Code: [id number] OFFICE OUTPATIENT VISIT 25 MINUTES DETAILED HISTORY AND EXAM/MODERATE MEDICAL DECISION MAKING. * Procedure Codes: G2211 VISIT COMPLEXITY INHERENT TO ONGOING CARE RELATED TO A PATIENT'S SINGLE, SERIOUS CONDITION OR A COMPLEX CONDITION. G9744 Pt not rocky d/t act dig htn. * [employer] MA[employer] Sign off status: Completed true * Provider: Shahzad Lux Date: 10/05/2024 Generated for Roberto butler/Trevon/Donna on: 0 11/08/2024 02:21 PM CDT History and Physical Notes * Examination Category Sub-Category Detail Notes Category Not es Psychiatry Appearance: alert, groomed, appears well rested. In no acute distress , alert, groomed, appears well rested. In no acute distress Attitude: cooperative, open-mi nded with collaborative approach , cooperative, open-minded with collaborative approach Psychomotor activity: within normal rang e , within normal range Abnormal body movements: none noted , no ne noted Attention: normal in conversati on , normal in conversation Degree of awareness of surroundings: wit hin normal limits , within normal limits Orientation: awake, alert and derrick ented x 3 , awake, alert and oriented x 3 Affect / mood: full range, appropri ate , full range, appropriate Speech / language: clear and coherent, appropriate pitch/modulation, normal rate, volume, and articulation (RVR), proper grammar used , clear and coherent, appropriate pitch/modulation, normal rate, volume, and articulation (RVR), proper grammar used Insight: good , good Judgement: good , good Thought process: intact , intact Thought content: appropriate , approp riate Suicidal ideation: none , none Homicidal ideation: none , none Intellectual functioning: no impairment noted , no impairment noted Memory status: no impairment noted , no impairment noted Delusions: no , no Hallucinations: no , no
--- OUTSIDE RECORDS SUMMARY | 2024-11-08 14:21 | XMS_ITS | Clinical Summary ---
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 Surgical History Surgery Date Site/Laterality Comments DE TOTAL ABDOMINAL HYSTERECT W/WO RMVL TUBE OVARY Hysterectomy - (Added by TW Conv) DE CHOLECYSTECTOMY Cholecystectomy - (Added by TW Conv) KNEE SURGERY Knee Surgery - (Added by TW Conv) DE ABDOMINO-VAG VESICAL NCK SSP W/WO NDSC CTRL Abdomino-Vaginal Vesical Neck Suspension - (Added by TW Conv) DE OPEN IMPLANTATION DELMAR SAC RAL NERVE Install Sacral Nerve Neurostimulator By Incision - (Added by TW Conv) DE PARATHYROIDECTOMY/EXPLORA TION PARATHYROIDS Parathyroid Resection Single Tumor [...] on file Legal Sex 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
--- OUTSIDE RECORDS SUMMARY | 2024-11-08 14:22 | XMS_ITS | Data Portability ---
Author Organization [facility] [employer], Main Office Address [address] [place] [address] Assessment No assessment recorded. Plan of Treatment Reminders Order Date Submit Date Provider Last Modified By Organization Details Last Modified Time Details Appointments None recorded. Lab HbA1c (hemoglobin A1c), blood 2022 023 [facility] (Lab), [address] [place] [address], [address], 3 15:33:06 hepatic function panel, serum [address] (Lab), [address] [place] [address], [address], 3 17:13:38 BMP, serum or plasma [address] (Lab), [address] [place] [address], [address], 3 17:13:39 lipid panel, serum [address] (Lab), [address] [place] [address], [address], 3 17:13:39 T4, free, serum [address] (Lab), [address] [place] [address], [address], 3 17:13:39 TSH, serum or plasma [address] (Lab), [address] [place] [address], [place], [address], 3 17:13:39 iron + TIBC + ferritin, serum [address] (Lab), [address] [place] [address] [address], [place], [address], 3 17:13:39 CBC w/ auto diff [address] (Lab), [address] [place] [address] [address], [place], [address], 3 17:13:39 HbA1c (hemoglobin A1c), blood [address] (Lab), [address] [place] [address], [place], [address], 3 15:44:25 hepatic function panel, serum [address] (Lab), [address] [place] [address] [address], [place], [address], 3 15:42:46 BMP, serum or plasma [address] (Lab), [address] [place] [address], [place], [address], 3 15:42:59 lipid panel, serum [address] (Lab), [address] [place] [address] [address], [place], [address], 3 15:43:40 T4, free, serum [address] (Lab), [address] [place] [address] [place], [place], [address], 3 15:43:53 TSH, serum or plasma [address] (Lab), [address] [place] [address], [place], [address], 3 15:44:06 iron + TIBC + ferritin, serum [address] (Lab), [facility] [address], [place], [address], 3 15:43:15 CBC w/ auto diff [address] (Lab), [facility] [address], [place], [address], 3 15:43:27 Referral None recorded. Procedures upper endoscopy (EGD) with diagnostic colonoscopy (PROC) 2022 023 SUNIL Stanley MD, [address] [facility] [address], [address], [place], [address], 3 05:01:33 Surgeries None recorded. Imaging CT, neck, soft tissue, w/ contrast [email or web address] [place] [address] Imaging Center, [address] [place] [address], [place], [address], 4 10:09:45 MAMMO, screening, digital, bilateral 2022 023 [facility] Imaging, [address], [address], [place], [address], 3 11:59:58 CT, neck, soft tissue, w/ contrast [address] Imaging Center, [facility] [address], [place], [address], 3 15:44:49 Medication Orders None recorded. Patient TargetsNo targets recorded. Patient InstructionsNo instructions recorded. Reason for Referral None Reported. Results Created Date Observation Date Name Description Value Unit Range Abnormal Flag Note LastModifiedBy Organization Detail LastModifiedTime 10/06/07/2021 MAMMO , scree claudia, digit al, bilat eral No observ ation record ed. MIGRATION.[address] [place] [address] Imaging 2022 [address], [place], [address], 10/08/2022 01:00:03 06/19/2005/31/2021 XR, cervi andrew spine No observ ation record ed. MIGRATION. [address] [place] [address] (Imaging) [address] [place] [address] [facility] [facility], [place], [address], 10/08/2022 01:00:03 07/23/2005/31/2021 XR, cervi andrew spine No observ ation record ed. MIGRATION. [address] [place] [address], [place], [address], 10/08/2022 01:00:03 11/12/19 23 10/29/2022 XR, lumba r spine No observ ation record ed. [email or web address] [address], [place], [address], 11/12/2022 14:13:57 11/12/1910/29/2022 XR, cervi andrew spine No observ ation record ed. [address] [address], [place], [address], 11/12/2022 14:13:24 05/08/20 23 04/07/2023 MAMMO , scree claudia, digit al, bilat eral No observ ation record ed. [address] Imaging [address], [place], [address], 05/11/2023 16:51:31 Result Notes None recorded. Problems Name Problem SNOMED Code Status Onset Date Resolution Date Notes Provider Name and Address Organization Details Recorded Time Iron deficiency anemia 78776051 Active 2022 CLAUDIA Morris [facility] Maris Michel, [address], [place], [address] , [place] [facility] [employer] [facility] 3 15:49:50 Acid reflux 692664169 Active 2022 CLAUDIA Morris [address] [facility], [facility] [address], [place], [address] , [facility] Andre Phillipe [facility] 3 15:50:20 Anterior cervical lymphadenopat hy 377190079 Active 2022 CLAUDIA Morris [address] [facility], [facility] [address], [place], [address] , [facility] [employer] [facility] [employer] [facility] 3 15:54:19 Benign essential hypertension 0896602 Active 2018 Not Available [facility] 3 00:50:00 Insomnia 405969351 Active 2018 Not Available [facility] 3 00:50:00 Generalized anxiety disorder 67792247 Active 2018 Not Available [facility] 3 00:50:01 Gastroesophag eal reflux disease 291681227 Active 2018 Not Available [facility] 3 00:50:01 Anemia 039639303 Active 2021 Not Available [facility] 3 00:50:01 Enthesopathy of hip region 08626847 Active Not Available [facility] 3 00:50:01 Hypothyroidis m 46779117 Active 2018 Not Available [facility] 3 00:50:01 History of clinical finding in subject 066912495 Active Not Available [facility] 3 00:50:01 Cough 68538590 Active 2022 Not Available [facility] 3 00:50:01 Hyperlipidemi a 47823939 Active 2018 Not Available [facility] 3 00:50:01 Hyponatremia 00470310 Active 2021 Not Available [facility] 3 00:50:01 Impaired glucose tolerance 9721772 Active 2018 Not Available [facility] 3 00:50:02 Problem Notes None recorded. Procedures Surgical History Date Name Laterality Status Provider Name and Address Organization Details Recorded Time 12/31/19 16 Most Recent Bone Density completed Not Available [facility] 10/08/2022 00:43:26 12/26/19 16 Most Recent Mammogram completed Not Available [facility] 10/08/2022 00:43:26 10/18/19 16 Date of Last Colonoscopy completed Not Available [facility] 10/08/2022 00:43:26 09/30/19 12 Date of Last Pap Smear completed Not Available [facility] 10/08/2022 00:43:26 05/09/19 95 [employer] Surgery completed Not Available [facility] 10/09/19 00:43:36 08/10/18 95 [employer] Surgery completed Not Available [facility] 10/09/19 00:43:36 Thyroid Surgery completed Not Available [facility] 10/08/2022 00:43:36 Imaging Results Imaging Date Name Status LastModified by Organiz ation Details LastModified Time 05/31/2021 XR, cervical spine completed [id number] [facility] (Imaging) [address] [place] [address], [address], 10/08/2022 01:00:03 06/07/2021 MAMMO, screening, digital, bilateral completed [id number] 026 [facility] [address], [place], [address], 10/08/2022 01:00:03 05/31/2021 XR, cervical spine completed MIGRATION.[id number] [address], [address], 10/08/2022 01:00:03 10/29/2022 XR, lumbar spine completed [email or web address] [address], [address], 11/12/2022 14:13:57 10/29/2022 XR, cervical spine completed [email or web address] [address], [address], 11/12/2022 14:13:24 04/07/2023 MAMMO, screening, digital, bilateral completed [email or web address], [place], [address], 05/11/2023 16:51:31 Procedure Notes None recorded. Medical Equipment None Reported. Allergies Allergen ID Allergen Name Allergen Category Reaction Reaction Severity Criticality Documentation Date Start Date Code Code System Note Provider Name and Address Organization Details Recorded Time 1067 Vibramyci n medicatio n Not available Not available Not available 10/08/2022 54767 5 RxNorm Not Available [facility] 3 00:59:31 1068 Veramyst medicatio n Not available Not available Not available 10/08/2022 66506 5 RxNorm Not Available [facility] 3 00:59:31 1069 bacitraci n / neomycin / polymyxin B medicatio n Not available Not available Not available 10/08/2022 53945 9 RxNorm Not Available [facility] 3 00:59:31 1070 latex environme nt,medica tion Not available Not available Not available 10/08/2022 65282 91 RxNorm Not Available [facility] 3 00:59:31 1071 codeine medicatio n Not available Not available Not available 10/08/2022 2670 RxNorm Not Available [facility] 3 00:59:31 Medications Name Sig Start Date [...] completed Not Available Not Available Not Available [facility] with Large Mask USE DIRECTED [...] Date Recorded Body mass index (BMI) Body height Oxygen saturation Oxygen saturation in Arterial blood by Pulse oximetry Heart rate Body temperature Body weight Systolic blood pressure Diastolic blood pressure Systolic blood pressure Diastolic blood pressure Provider Name and Address Organization Details Last Updated DateTime 1 22.2 kg/m2 175.26 cm 95 % 95 % 87 /min 97.3 [degF] 51886.2 9 g 120 mm[Hg] 80 mm[Hg] 122 mm[Hg] 80 mm[Hg] Not Available [facility] 3 00:45:22 Date Recorded Body mass index (BMI) Body height Oxygen saturation Oxygen saturation in Arterial blood by Pulse oximetry Heart rate Body temperature Body weight Systolic blood pressure Diastolic blood pressure Provider Name and Address Organization Details Last Updated DateTime 2 21.9 kg/m2 175.26 cm 96 % 96 % 72 /min 97.3 [degF] 47912.6 7 g 112 mm[Hg] 70 mm[Hg] Not Available [facility] 3 00:45:23 Date Recorded Body mass index (BMI) Body height Oxygen saturation Oxygen saturation in Arterial blood by Pulse oximetry Heart rate Respiratory rate Body temperature Body weight Systolic blood pressure Diastolic blood pressure Provider Name and Address Organization Details Last Updated DateTime 2 23.1 kg/m2 175.26 cm 93 % 93 % 78 /min 16 /min 97.3 [degF] 18505.5 7 g 122 mm[Hg] 78 mm[Hg] Not Available [facility] 3 00:45:23 Date Recorded Body height Body temperature Body mass index (BMI) Body weight Heart rate Oxygen saturation Oxygen saturation in Arterial blood by Pulse oximetry Systolic blood pressure Diastolic blood pressure Provider Name and Address Organization Details Last Updated DateTime 3 175.26 cm 96.8 [degF] 24.8 kg/m2 34674.5 2 g 82 /min 97 % 97 % 112 mm[Hg] 78 mm[Hg] LIANNA Uriarte [facility] [employer] 3 15:29:53 Date Recorded Body height Body temperature Heart rate Oxygen saturation Oxygen saturation in Arterial blood by Pulse oximetry Systolic blood pressure Diastolic blood pressure Provider Name and Address Organization Details Last Updated DateTime 3 175.26 cm 97.6 [degF] 72 /min 98 % 98 % 132 mm[Hg] 78 mm[Hg] LIANNA Uriarte [facility] [employer] 3 14:44:32 Date Recorded Systolic blood pressure Diastolic blood pressure Provider Name and Address Organization Details Last Updated DateTime 05/07/2023 120 mm[Hg] 80 mm[Hg] Melanie Lerner, CLAUDIA [address] [facility], [facility] [address], [place], [address], [facility] 05/07/2023 15:01:02 Social History Question Answer Notes LastModified by Organizat ion Details LastModified Time Tobacco Smoking Status Current Some Day Smoker social Not Available [employer] 10/08/2022 00:41:46 Do You Have An Advance Directive? No MIGRATION.64268 97612 Information not available 10/08/2022 What Is Your Level Of Alcohol Consumption? Occasional MIGRATION.58286 97812 Information not available 10/08/2022 Are You Blind Or Do You Have Difficulty Seeing? No MIGRATION.19856 69921 Information not available 10/08/2022 What Is Your Level Of Caffeine Consumption? Moderate MIGRATION.48492 24983 Information not available 10/08/2022 In The 14 Days Before Symptom Onset, Have You Had Close Contact With A Laboratory-confir med COVID-19 While That Case Was Ill? No MIGRATION.67586 09852 Information not available 10/08/2022 In The 14 Days Before Symptom Onset, Have You Had Close Contact With A Person Who Is Under Investigation For COVID-19 While That Person Was Ill? No MIGRATION.29018 92770 Information not available 10/08/2022 Are You Currently Employed? No [email or web address] Information not available 11/03/2022 Are You Deaf Or Do You Have Serious Difficulty Hearing? No MIGRATION.14307 33764 Information not available 10/08/2022 What Type Of Diet Are You Following? REGULAR MIGRATION.42510 95875 Information not available 10/08/2022 Which Illicit Or Recreational Drugs Have You Used? Marijuana Medical Card MIGRATION.01087 33874 Information not available 10/08/2022 Do You Or Have You Ever Used E-cigarettes Or Vape? Current User Of Electronic Cigarettes Vaping Current MIGRATION.58098 23612 Information not available 10/08/2022 What Is Your Occupation? Disability MIGRATION.91261 78196 Information not available 10/08/2022 Have There Been Any Changes To Your Family Or Social Situation? No MIGRATION.94716 07547 Information not available 10/08/2022 Do You Use Insect Repellent Routinely? No MIGRATION.82231 51358 Information not available 10/08/2022 Do You Have A Medical Power Of Auto Brake Mechanic? No MIGRATION.17815 18672 Information not available 10/08/2022 What Was The Date Of Your Most Recent Tobacco Screening? 10/29/2021 MIGRATION.36124 77534 Information not available 10/08/2022 Do You Have Any Pets? Yes MIGRATION.63323 38793 Information not available 10/08/2022 What Is Your Relationship Status? MIGRATION.48252 70110 Information not available 10/08/2022 Do You Use Your Seat Belt Or Car Seat Routinely? Yes MIGRATION.48433 18673 Information not available 10/08/2022 Do You Have Smoke And Carbon Monoxide Detectors In Your Home? Yes MIGRATION.81954 86685 Information not available 10/08/2022 Are You Passively Exposed To Smoke? Yes MIGRATION.39774 30532 Information not available 10/08/2022 Are There Any Smokers In Your House? Yes MIGRATION.57157 34375 Information not available 10/08/2022 How Much Tobacco Do You Smoke? 1 PPW MIGRATION.89721 08463 Information not available 10/08/2022 Do You Feel Stressed (tense, Restless, Nervous, Or Anxious, Or Unable To Sleep At Night)? [id number] MIGRATION.43513 15087 Information not available 10/08/2022 Do You Use Any Illicit Or Recreational Drugs? Yes MIGRATION.91019 63350 Information not available 10/08/2022 Do You Use Sunscreen Routinely? Yes MIGRATION.01473 99500 Information not available 10/08/2022 Have You Recently Traveled Abroad? No MIGRATION.23325 84728 Information not available 10/08/2022 Are You Currently In School? No MIGRATION.05422 58495 Information not available 10/08/2022 Do You Have Any Dietary Restrictions? No MIGRATION.27748 85833 Information not available 10/08/2022 Do You Or Have You Ever Used Any Other Forms Of Tobacco Or Nicotine? Yes MIGRATION.33316 12457 Information not available 10/08/2022 Sex: Unknown Functional Status Question Answer Note LastModified by Organizat ion Details LastModified Time Do you have difficulty walking or climbing stairs? No MIGRATION.0858825 026 Information not available 10/08/2022 Do you have transportation difficulties? No MIGRATION.4886193 026 Information not available 10/08/2022 Are you able to walk? YESWOREST MIGRATION.0204791 026 Information not available 10/08/2022 Do you have difficulty doing errands alone? No MIGRATION.7706976 026 Information not available 10/08/2022 Are you able to care for yourself? Yes MIGRATION.2486013 026 Information not available 10/08/2022 Do you have difficulty dressing or bathing? No MIGRATION.0317691 026 Information not available 10/08/2022 What is your exercise level? Occasional MIGRATION.8452104 026 Information not available 10/08/2022 Mental Status Question Answer Note LastModified by Organizat ion Details LastModified Time Do you have difficulty concentrating, remembering or making decisions? No MIGRATION.[id number] 6 Information not available 10/08/2022 Family History Relationship Description Onset Age of this Age Resolved Age Notes LastModified by Organization Details LastModified Time Brother Hypertensive disorder MIGRATION.629 [id number] Not available 10/08/2022 00:43:40 Mother Hypertensive disorder MIGRATION.544 [id number] Not available 10/08/2022 00:43:40 Mother Osteoporosis MIGRATION.0 30 [id number] Not available 10/08/2022 00:43:40 Sister Hypertensive disorder MIGRATION.356 [id number] Not available 10/08/2022 00:43:40 Notes:hx of spinal stenosis/ degenerative disc disease/ bulging discs/ VLD Medical History Condition Response ARTHRITIS Y ANXIETY DISORDER Y USE OF BLOOD THINNERS Y HYPOTHYROIDISM Y DEPRESSION (INCLUDING POST ) Y MIGRAINES Y HYPERTENSION Y HIGH CHOLESTEROL / HYPERLIPIDEMIA Y Gynecological History Statement/Question Response Date of [...] virus, quadrivalent, PF 09/26/2020 completed Not Available [facility] 3 00:59:09 Influenza, split virus, quadrivalent, PF 07/13/2019 completed Not Available [facility] 3 00:59:09 Past Encounters Encounter ID Performer Location Encounter Start Date Encounter Closed Date Diagnosis/Indication Diagnosis SNOMED-CT Code Diagnosis ICD10 Code Diagnosis Note [id number] _ATHENA_M IGRATION_ DEFAULT_1 _1 , 10/23/2020 00:00:00 10/23/2020 16:25:56 [id number] [facility] [address] [place] [address] 02/05/2021 00:00:00 02/05/2021 19:35:50 [id number] [facility] [address] [place] [address] 04/03/2021 00:00:00 04/04/2021 18:38:21 [id number] [facility] [address] [place] [address] 07/02/2021 00:00:00 07/05/2021 22:29:17 [id number] [facility] [address] [place] [address] 10/29/2021 00:00:00 10/31/2021 14:01:24 [id number] [facility] [address] [place] [address] 04/29/2022 00:00:00 05/07/2022 18:16:58 [id number] CLAUDIA Morris [facility] [address] [place] [address] 11/04/2022 15:24:16 11/04/2022 16:06:50 Benign essential hypertension 6783626 I10 stable on losartan hctz 100/25mg half daily. Hyponatremia 51104135 E8 7.1 stable on labs. w/u has been completed in recent years. Impaired g lucose tolerance 3856819 R73.03 stable on metformin therapy. a1c due in apr Hypothyroidism 61592064 E03.9 stable on labs, on supplement , repeat labs due in apr Hyperlipidemia 62984580 E78.5 stable on crestor 10mg daily. fasting labs due in apr. Iron defic iency anemia 74844931 D50.9 pt has iron def. anemia and EGD and colonoscop y were ordered twice prior. she has not completed these still Her iron def. anemia continues. she MUST get these completed. Long-term drug therapy 375665538 Z79.899 Screening mammography 24 068185 Z12.31 mammogram due. Acid reflux 091018094 K2 1.9 stable on pantoprazo le 40mg daily. Anterior c ervical lymphadenopathy 946345985 R59.0 right sub-cm anterior retrophary ngeal LAD noted. check ct neck soft tissue w/c. [id number] CLAUDIA Morris [facility] [address] [place] [address] 05/07/2023 14:39:53 05/07/2023 15:05:51 Benign essential hypertension 3388336 I10 stable on losartan hctz 100/25mg HALF daily. Hyponatremia 39507160 E8 7.1 still to get updated labs. w/u has been completed in recent years. Impaired g lucose tolerance 9763408 R73.03 stable on metformin therapy. a1c due Hypothyroidism 91909698 E03.9 stable on labs, on supplement , repeat labs due Hyperlipidemia 73210344 E78.5 stable on crestor 10mg daily. fasting labs due still. Acid reflux 072556931 K2 1.9 stable on pantoprazo le 40mg daily. Iron defic iency anemia 14055172 D50.9 pt has iron def. anemia and EGD and colonoscop y were ordered twice prior. she has not completed these still Her iron def. anemia continues. she MUST get these completed. she doesn't want us ordering and faxing them yet, until she calls us to do so. Long-term drug therapy 103391359 Z79.899 Anterior c ervical lymphadenopathy 577778976 R59.[address] scan yet: for right 1-2cm anterior retrophary ngeal LAD noted. check ct neck soft tissue w/c. Health Concerns Section Related Observation LastModified by Organization Minh ls LastModified Time None Recorded Concern Status LastModified by Organization Details LastModified Time None Recorded Advance Directives Directive N: Payers Encounter Date Sequence Insurance Name Policy Number Policy Bernstein Covered Member ID Bernstein Member ID Guarantor Name 11/04/2022 1 [facility] MEDICARE COMPLETE PLAN 2 (MEDICARE REPLACEMENT HMO) [id number] Blanca Laura [id number] Blanca Laura 05/07/2023 1 [facility] - [employer] - MEDICARE COMPLETE PLAN 2 (MEDICARE REPLACEMENT HMO) [id number] Blanca Laura [id number] Blanca Larua Notes Date Note Type Note Provider Name and Address Organization Details Recorded Time 021 text/ht ml Anxiety, Generalized DisorderReported bypatient.Associated Symptoms:no difficulty concentrating; [...] skin changes; no hair changes Not Available [employer] 07/05/2021 22:29:17 022 text/ht ml Anxiety, Generalized DisorderReported bypatient.Associated Symptoms:no difficulty concentrating; [...] no early satiety; no halitosis Not Available [employer] 10/31/2021 14:01:24 09/20/2 022 text/ht ml Anxiety/DepressionReported bypatient.Quality:doesnt matter time of day. Severity:denies [...] appetite good; energy good; no apathy; maintaining functionality HyperlipidemiaReported bypatient.Duration:chronic Control:usually well controlled Compliance:compliant; compliant with diet; exercises Complications:no coronary artery disease; no peripheral artery disease; no cardiovascular disease Risk Factors:hypertension;smokingHyperten sionReported bypatient.Duration:has noted for years Onset/Timing:better Alleviating Factors:medication Self Care:not under emotional stress Associated Symptoms:no shortness of breath; no palpitations; no decline in exercise capacity; no snoring;fatigueHypothyroidismReporte d bypatient.Quality:not changing Duration:constant Onset/Timing:still present Context/Risk:normal thyroid [...] no early satiety; no halitosis Not Available [facility] 05/07/2022 18:16:58 023 text/ht ml Anxiety, Generalized DisorderReported bypatient.Modifying Factors:other medications Associated [...] fatigue; no throat pain CLAUDIA Morris [address], [address], [facility] [email or web address] 11/04/2022 22:28:49 023 text/ ml Anxiety, Generalized DisorderReported bypatient.Modifying Factors:other medications Associated [...] fatigue; no throat pain CLAUDIA Morris [address] [facility], [facility] [address], [place], [address], [facility] [employer] [facility] 05/07/2023 17:22:37 OBGyn Episode No OBEpisode recorded.
--- OUTSIDE RECORDS SUMMARY | 2024-11-08 14:22 | XMS_ITS | Continuity of Care Document ---
Author Organization [facility] Address [address] [facility] [address] [place] [address] Phone Care Team Providers Care Hammer Repairer Name Role Phone Eve Milner Unavailable Unavailable Advance Directives Directive Yes / No Effective Date File Name No Information Encounters Encounter Description Practice Location Reason(s) For Visit Diagnoses Date Provider Providers Copied on Encounter [facility], [address], [place], [place], [id number], [place] tel:[phone] [facility] No Information 4-200 4 Annia Prado. [address] [facility] [address] [facility] [address] , [address], [place], [address], [place]. tel:[phone] Family History Family Member Type Diagnosis Age [...]
== END 2024-11-08 13:14 | disposition home or self-care (01) ==
PROVIDERS: PCP Physician Assistant; Visit Provider Physician Assistant
DX: M81.0 Age-related osteoporosis without current pathological fracture (principal); M85.852 Other specified disorders of bone density and structure, left thigh; M85.851 Other specified disorders of bone density and structure, right thigh
CPT/HCPCS: 77080

== ENCOUNTER 2025-05-02 14:02 | Outpatient (CLI) | payer MEDICARE, SELFPAY ==
--- OUTSIDE RECORDS SUMMARY | 2004-01-31 19:00 | XMS_ITS | Continuity of Care Document ---
Author Organization [facility] Address [address] [facility] [address] [place] [address] Phone Care Team Providers Care Enrolled Nurse Name Role Phone Eve Milner Unavailable Unavailable Advance Directives Directive Yes / No Effective Date File Name No Information Encounters Encounter Description Practice Location Reason(s) For Visit Diagnoses Date Provider Providers Copied on Encounter [facility], [address], [place], [place], [id number], [place] tel:[phone] [facility] No Information 4-200 4 Annia Prado. [address] , [address], [place], [address], [place]. tel:[phone] Family History Family Member Type Diagnosis Age At Onset No Information Payers Payer name Insurance type Covered republican ID Authoriza tion(s) No Information Social History Type Description Quantity Date Captured Comments Sex Female Smoking Status No Information Chief Complaint And Reason For Visit No Information Reason For Referral Reason For Referral No Information History Of Present Illness Encounter Date Complaint History Of Prese nt Illness No Information Functional Status Date Functional Assessmen t No Information Instructions Date Instruction Additional Infor mation No Information Assessments Type Assessment Date No Information Patient Care Teams Name Effective Dates (start - stop) Status Members No Information
--- OUTSIDE RECORDS SUMMARY | 2025-04-26 09:00 | XMS_ITS ---
Author Organization [facility] Address [employer] [facility] [address] [place] [address] Care Team Providers Care Tapper Supervisor Name Role Phone Melanie Villela Primary Care Provider Renae Moses Unavailable [phone] REASON FOR VISIT Has family emergency, r/s this appt Social History Sex Assigned At : Social History Observation Description Sex Assigned At Female Encounters Encounter Location Date Provider Diagnosis [facility] [employer] [place] [address] [place] [address] 04/26/2025 Renae Lux Plan Of Treatment Next Appt Details Provider Name:Renae ashton, 05/08/2025 01:45:00 PM, [address], [address], [place], [address], Progress Notes * AYDEE LOVELACEDOB: (69 yo F)Acc No.[id number]:04/26/2025 Patient: AYDEE LEZAMA Provider: Shahzad Lux :1955 A ge:69 Y S ex:Female Date:04/26/2025 Address:[address] [place] [id number] Pcp:Melanie TAYLOR Subjective: * Chief Complaints: * H as family emergency, r/s this appt Billing Information: * Procedure Codes: * Electronic signature of Jonathon Lux on 05/02/2025 at 02:17 PM CDT Sign off status: Pending * Provider: Shahzad Lux Date: 0 04/26/2025 Generated for Roberto butler/Trevon/Donna on: 0 05/02/2025 02:17 PM CDT
--- NOTE | ~2025-05-02 | XR_ITS ---
XR lumbar spine 2-3V Indication: PAIN Comparison: None Findings: Mild levoconvex scoliosis. Moderate loss of vertebral height throughout. No acute fracture or subluxation. Moderate to severe loss of disc height throughout. Soft tissues sacral stimulator noted. Impression: No acute abnormality. Reviewed, dictated and finalized at location A. Impression: No acute abnormality.
--- NOTE | ~2025-05-02 | XR_ITS ---
XR cervical spine 4-5V Indication: PAIN Comparison: None Findings: The vertebral heights are intact. No fracture or subluxation. Severe loss of disc height at C5-6 and C6-7 Soft tissues unremarkable Impression: No acute abnormality. Reviewed, dictated and finalized at location A. Impression: No acute abnormality.
--- OUTSIDE RECORDS SUMMARY | 2025-05-02 14:17 | XMS_ITS | Clinical Summary ---
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 Surgical History Surgery Date Site/Laterality Comments [place] TOTAL ABDOMINAL HYSTERECT W/WO RMVL TUBE OVARY Hysterectomy - (Added by TW Conv) [place] CHOLECYSTECTOMY Cholecystectomy - (Added by TW Conv) KNEE SURGERY Knee Surgery - (Added by TW Conv) [place] ABDOMINO-VAG VESICAL NCK SSP W/WO NDSC CTRL Abdomino-Vaginal Vesical Neck Suspension - (Added by TW Conv) [place] OPEN IMPLANTATION DELMAR SAC RAL NERVE Install Sacral Nerve Neurostimulator By Incision - (Added by TW Conv) [place] PARATHYROIDECTOMY/EXPLORA TION PARATHYROIDS Parathyroid Resection Single Tumor [...] on file Legal Sex Female 12:28 AM 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
--- OUTSIDE RECORDS SUMMARY | 2025-05-02 14:18 | XMS_ITS | Patient Health Record ---
Author Organization [facility] Address [address] [place] [address] Care Team Providers Care Manufacturing Technology Professor Name Role Phone Melanie Villela Primary Care Provider Renae Moses Unavailable [phone] Karla Cardona Unavailable [phone] Allergies Allergen (clinical drug ingredient) Drug/Non Drug Allergy documented on EMR Reaction Allergy Type Onset Date Status lisinopril Lisinopril Unknown Drug Allergy 06/23/2023 Acti ve Latex Latex Unknown Allergy 06/23/2023 Active Reason For Referral No Information Medications Medication SIG (Take, Route, Frequency, Duration) Notes Start Date End Date Status Metoprolol Succinate ER 50 MG Tablet Extended Release 24 Hour Oral 09/23/2023 Active Losartan Potassium-HCTZ 100-25 MG Tablet Oral 09/23/2023 Active Diclofenac Sodium 1% Gel Transdermal 09/23/2023 Active OptiChamber Caitlin SPACER (EA) MISCELLANEOUS 09/23/2023 Active HYDROcodone-Acetaminop hen 10-325 MG Tablet Oral 09/23/2023 Active STIMULANT LAXATIVE PLUS 8.6-50 mg Tablet Oral *Reorder from [employer] for eRx and Interaction Alerts* 09/23/2023 Active Meloxicam 15 MG Tablet Oral 09/23/2023 Active Cyclobenzaprine HCl 10 MG Tablet Oral 09/23/2023 Active metFORMIN HCl 500 MG Tablet Oral 09/23/2023 Active Estradiol 1 MG Tablet Oral 09/23/2023 Active DULoxetine HCl 60 MG Capsule Delayed Release Particles 1 capsule Orally Once a day; Duration: 30 days Active buPROPion HCl ER (XL) 150 MG Tablet Extended Release 24 Hour 1 tablet in the morning Orally Once a day; Duration: 30 days Active Rosuvastatin Calcium 10 MG Tablet Oral 09/23/2023 Active Pantoprazole Sodium 40 MG Tablet Delayed Release Oral 09/23/2023 Active traZODone HCl 100 MG Tablet 2 tablets Oral daily at bedtime; Duration: 30 days Active Vraylar 3 mg Capsule 1 capsule Oral daily; Duration: 30 days Active Levothyroxine Sodium 75 MCG Tablet Oral 09/23/2023 Active Immunizations Vaccine Route Administration Date Status Comme nts Moderna Covid-19 Vaccine 1st dose Unknown 02/01/2021 Ad ministered Moderna Covid-19 Vaccine 1st dose Unknown 03/01/2021 Ad ministered Moderna Covid-19 Vaccine 1st dose Unknown 09/30/2021 Ad ministered Novel [id number], preservative free Unknown 07/13/2019 Administered Novel [id number], preservative free Unknown 09/26/2020 Administered Social History Sex Assigned At : Social History Observation Description Sex Assigned At Female Social History Miscellaneous: Social Info Question Answer Notes Advance Care Planning Are you your own decision-maker Yes Do you have Power of [employer] [facility] or [facility]? No Safety issues: Do you feel safe at home? Yes Household: Social Info Question Answer Notes Household Marital status: Drug/Alcohol: Social Info Question Answer Notes Drugs Have you used drugs other than those for medical reasons in the past 12 months? No Tobacco Use: Social Info Question Answer Notes Tobacco Control (Standard) Additional Findings: Tobacco user e-cigarette Additional Details Category Social Info Options Details Migrated Social History Migrated Social History Alcohol Intake: Occasional 08/18/2018,Tobacco Years: Current some days smoker 09/23/2023,Smoking Status: 45 09/23/2023 Drug/Alcohol: Do you smoke marijuana? Yes , medically for pain management Do you drink alcohol? No Section Notes: Social History Substance Use Do [...] Do you have a medical power of criminal defense attorney?: No Public Health and Travel Have you been to an area known to be high risk for COVID-19?: No Other Education: 12 Gender Identity and LGBTQ Identity Sexual orientation: Straight or heterosexual Social History Substance Use Do you or [...] Do you have a medical power of criminal defense attorney?: No Gender Identity and LGBTQ Identity Sexual orientation: Straight or heterosexual Problems Problem Type SNOMED Code ICD Code Onset Dates Problem Status W/U Status Risk Notes Problem Mild recurrent major depression (34661472) Major depressive disorder, recurrent, mild (F33.0) 4 Active confirmed Problem Generalized anxiety disorder (31398171) Generalized anxiety disorder (F41.1) 4 Active confirmed Problem Primary insomnia (7915229) Primary insomnia (F51.01) 4 Active confirmed Problem Tobacco use (522134089) Nicotine use (Z72.0) Active confirmed Problem Essential hypertension (47572081) Benign essential HTN (I10) Active confirmed Vital Signs Heart Rate 73 /min 12/28/2024 Height-cm 177.80 cm 12/28/2024 Blood pressure diastolic 95 mm Hg 12/28/2024 Weight-kg 83.92 kg 12/28/2024 Height 70.00 in 12/28/2024 Blood pressure systolic 160 mm Hg 12/28/2024 Weight 185 lbs 12/28/2024 BMI 26.54 kg/m2 12/28/2024 Encounters Encounter Location Date Provider Diagnosis [facility] [employer] [address] [place] [address] 05/20/2024 Karla Cardona Major depressive disorder, recurrent, mild F33.0 ; Primary insomnia F51.01 and Generalized anxiety disorder F41.1 [facility] [employer] [facility] [address] [place] [address] 10/05/2024 Renae Lux Major depressive disorder, recurrent, mild F33.0 ; Primary insomnia F51.01 ; Generalized anxiety disorder F41.1 and Benign essential HTN I10 [place] [address] [facility] [address] [place] [address] 12/28/2024 Renaedelisa Kennedysandro Generalized anxiety disorder F41.1 ; Primary insomnia F51.01 ; Major depressive disorder, recurrent, mild F33.0 ; Nicotine use Z72.0 ; Benign essential HTN I10 and Encounter for screening for depression Z13.[address] [facility] [address] [place] [address] 04/25/2025 Renae Lux [place] [address] [facility] [address] [place] [address] 10/03/2024 Renae Lux Major depressive disorder, recurrent, mild F33.0 Assessments Encounter Date Diagnosis (ICD Code) Assessment [...] after this month note: opiate pain management 10/03/2024 Major depressive disorder, recurrent, mild (ICD-10 - F33.0) 10/05/2024 Major depressive disorder, recurrent, mild (ICD-10 - F33.0) 12/28/2024 Generalized anxiety disorder (ICD-10 - F41.1) 12/28/2024 Primary insomnia (ICD-10 - F51.01) 05/20/2024 Primary insomnia (ICD-10 - F51.01) cont trazodone 200mg qhs practice good sleep hygiene 12/28/2024 Major depressive disorder, recurrent, mild (ICD-10 - F33.0) 10/05/2024 Primary insomnia (ICD-10 - F51.01) 05/20/2024 Generalized anxiety disorder (ICD-10 - F41.1) meds as above 10/05/2024 Generalized anxiety disorder (ICD-10 - F41.1) 12/28/2024 Nicotine use (ICD-10 - Z72.0) 12/28/2024 Benign essential HTN (ICD-10 - I10) 10/05/2024 Benign essential HTN (ICD-10 - I10) 12/28/2024 Encounter for screening for depression (ICD-10 - Z13.31) 12/28/2024 Other Blanca Laura, female, presents for routine follow-up with stable mood and anxiety, reporting elevated blood pressure due to missed medication dose. Hypertension Assessment: Patient reports elevated blood pressure of 167/96, which is higher than her usual reading of around 140. She acknowledges being out of one of her blood pressure medications and plans to refill it at the pharmacy. No symptoms reported associated with the elevated blood pressure. Plan: - Resume all prescribed blood pressure medications - Encourage patient to refill and take all blood pressure medications as prescribed - Monitor blood pressure at future visits Mood Disorder Assessment: Patient reports stable mood with no current symptoms of depression or hopelessness. Sleep and appetite are reported as normal. No suicidal ideation present. Plan: - Continue Vraylar - Continue duloxetine - Continue bupropion - Follow up in 3-4 months Anxiety Assessment: Patient reports anxiety is okay and not unmanageable. No acute symptoms or concerns reported. Plan: - Continue current medication regimen - Follow up in 3-4 months Insomnia Assessment: Patient reports no problems with sleep and good rest. Plan: - Continue trazodone Plan Of Treatment Next Appt Details Provider Name:Renae Hector ashton, 05/08/2025 01:45:00 PM, [address], [facility] [address], [place], [address], Insurance Providers Payer Name Payer Address Payer Phone Subscriber Number Group Number Insured Name Patient Relationship to Insured Coverage Start Date Coverage End Date [facility] Medicare Replacement/ [employer] - [employer] [address] [address] [place] [address] [id number] BLANCA LAURA Self - patient is the insured Medical (General) History Medical History History ICD Code Problems: Benign essential hypertension Enthesopathy of hip region Gastroesophageal reflux disease Generalized anxiety disorder History of clinical finding in subject Hyperlipidemia Hypothyroidism Impaired glucose tolerance Primary insomnia Severe recurrent major depression withou t psychotic features Type 2 diabetes mellitus Surgical History Surgery Date(Month/Year) Cosmetic surgery Hysterectomy (36721) 08/10/1994 Removal of gallbladder (90723) 1 endoscopy 04/2024
[2025-05-02 14:48] LABS: Hematocrit 31.9 % (37.0-47.0); Hemoglobin 10.3 g/dL (12.0-15.0); Immature Granulocyte Percent A 0.3 % (0-0.5); Lymphocytes Absolute Auto 1.17 K/mm3 (0.9-3.2); Mean Corpuscular HGB Conc 32.3 g/dl (32-36); Mean Corpuscular Hemoglobin 28.6 pg (26-34); Mean Corpuscular Volume 88.6 fl (80-100); Nucleated Red Blood Cells Absolute Auto 0.000 K/mm3 (0.0-0.012); Nucleated Red Blood Cells Perc 0.0 % (0.0-0.2); Platelet Count Result 330 k/mm3 (150-375); Red Blood Count 3.60 M/mm3 (4.2-5.4); White Blood Count 6.6 K/mm3 (4.5-10.0)
[2025-05-02 15:05] LABS: Alanine Aminotransferase 13 U/L (6-35); Albumin Level 4.1 g/dL (3.5-5.1); Alkaline Phosphatase 76 U/L (38-126); Anion Gap 9 mmol/L (4-12); Aspartate Amino Transferase 20 U/L (14-36); Bilirubin,Total 0.3 mg/dL (0.2-1.3); Blood Urea Nitrogen 22 mg/dL (7-17); Calcium 8.8 mg/dL (8.4-10.2); Carbon Dioxide 29 mmol/L (22-30); Chloride 96 mmol/L (98-107); Cholesterol 113 mg/dL (0-200); Estimated Glomerular Filt Rate > 60; Glucose 118 mg/dL (65-110); HDL Direct 55 mg/dL; Potassium 4.4 mmol/L (3.4-5.0); Sodium 134 mmol/L (137-145); Total Protein 7.2 g/dL (6.3-8.2); Triglycerides 77 mg/dL (<150)
[2025-05-02 16:03] LABS: MALB Creatinine Ratio 10.1 mg/g (0-30)
[2025-05-02 16:03] LABS: Iron 41 ug/dL (37-170)
[2025-05-02 16:12] LABS: Percent Iron Saturation 10 % (20-50)
[2025-05-02 16:17] LABS: Hemoglobin A1C 5.9 % (<5.7)
[2025-05-02 16:39] LABS: Ferritin 9.25 ng/mL (11.1-264)
== END 2025-05-02 14:03 | disposition home or self-care (01) ==
PROVIDERS: PCP Physician Assistant; Visit Provider Physician Assistant
DX: M54.12 Radiculopathy, cervical region (principal); M54.16 Radiculopathy, lumbar region; D50.9 Iron deficiency anemia, unspecified; E78.5 Hyperlipidemia, unspecified; E11.9 Type 2 diabetes mellitus without complications; Z79.899 Other long term (current) drug therapy
CPT/HCPCS: 36415; 72050; 72100; 80048; 80061; 80076; 82043; 82728; 83036; 83540; 83550; 85025